=== PATIENT | male | born 1945 | race Caucasian/White ===

== ENCOUNTER 2022-01-12 01:56 | Day surgery (SDC) | payer OTHER | END 2022-01-12 23:14 | disposition home or self-care (01) | LOC: WOUND 01:56 | DX: E11.621 Type 2 diabetes mellitus with foot ulcer (principal); E11.51 Type 2 diabetes mellitus with diabetic peripheral angiopathy without gangrene; I70.6 Atherosclerosis of nonbiological bypass graft(s) of the extremities; L97.516 Non-pressure chronic ulcer of other part of right foot with bone involvement without evidence of necrosis; L97.512 Non-pressure chronic ulcer of other part of right foot with fat layer exposed; L97.528 Non-pressure chronic ulcer of other part of left foot with other specified severity; E11.52 Type 2 diabetes mellitus with diabetic peripheral angiopathy with gangrene; I96 Gangrene, not elsewhere classified; E11.59 Type 2 diabetes mellitus with other circulatory complications; I87.2 Venous insufficiency (chronic) (peripheral); I25.10 Atherosclerotic heart disease of native coronary artery without angina pectoris; I10 Essential (primary) hypertension; Z87.891 Personal history of nicotine dependence; Z89.411 Acquired absence of right great toe | CPT/HCPCS: A9270; G0463 ==

== ENCOUNTER 2022-01-19 02:25 | Day surgery (SDC) | payer OTHER | END 2022-01-19 22:51 | disposition home or self-care (01) | LOC: WOUND 02:25 | DX: E11.621 Type 2 diabetes mellitus with foot ulcer (principal); L97.516 Non-pressure chronic ulcer of other part of right foot with bone involvement without evidence of necrosis; L97.529 Non-pressure chronic ulcer of other part of left foot with unspecified severity; I96 Gangrene, not elsewhere classified; I70.6 Atherosclerosis of nonbiological bypass graft(s) of the extremities; E11.59 Type 2 diabetes mellitus with other circulatory complications; I87.2 Venous insufficiency (chronic) (peripheral); I70.203 Unspecified atherosclerosis of native arteries of extremities, bilateral legs | CPT/HCPCS: A9270; G0463 ==

== ENCOUNTER 2022-01-26 08:00 | Day surgery (SDC) | payer OTHER | END 2022-01-26 23:59 | disposition home or self-care (01) | LOC: WOUND 08:00 | DX: E11.621 Type 2 diabetes mellitus with foot ulcer (principal); L97.512 Non-pressure chronic ulcer of other part of right foot with fat layer exposed; L97.529 Non-pressure chronic ulcer of other part of left foot with unspecified severity; E11.52 Type 2 diabetes mellitus with diabetic peripheral angiopathy with gangrene; I96 Gangrene, not elsewhere classified; E11.51 Type 2 diabetes mellitus with diabetic peripheral angiopathy without gangrene; I70.6 Atherosclerosis of nonbiological bypass graft(s) of the extremities; L97.519 Non-pressure chronic ulcer of other part of right foot with unspecified severity; I87.2 Venous insufficiency (chronic) (peripheral); T87.89 Other complications of amputation stump | CPT/HCPCS: G0463 ==

== ENCOUNTER 2022-04-23 20:42 | Emergency (ER) | payer OTHER ==
[~2022-04-23] VITALS: Ht 180.3 cm; Wt 90.7 kg
[~2022-04-23 20:42] MED LIST: AMOCLA875 PO; Acetaminophen650 M1; Calcium Carbon500 MG PO; DILT180 PO; ELIQUIS5 M2 PO; FERSU300 PO; FURO20 PO; GABA100; GLUC500 PO; NITR.4SL SL; OMEP20ER PO; POTASSIUM99 M3 PO; PRAV20 PO; PRED5 PO; STIOLTO RESPIMAT4 G1; SULTRIDS PO; Vitamin C100 M1 PO
[2022-04-24 01:05] LABS: Calcium, Ionized (POC) 1.22 mmol/L (1.10-1.46); Chloride (POC) 99 mmol/L (98-108); Creatinine (POC) 0.8 mg/dL (0.8-1.3); Glucose (ISTAT POC) 278 mg/dL (70-99); Hemoglobin (POC) 11.6 g/dL (13.5-17.5); Potassium (POC) 4.4 mmol/L (3.5-5.5); Sodium (POC) 134 mmol/L (135-148); Total CO2 (POC) 25 mmol/L (21-32)
== END 2022-04-24 03:35 | disposition home or self-care (01) ==
LOC: ER 20:42
PROVIDERS: Emergency Medicine
DX: M96.830 Postprocedural hemorrhage of a musculoskeletal structure following a musculoskeletal system procedure (principal); E11.9 Type 2 diabetes mellitus without complications; J44.9 Chronic obstructive pulmonary disease, unspecified; I11.0 Hypertensive heart disease with heart failure; I50.30 Unspecified diastolic (congestive) heart failure; Z87.891 Personal history of nicotine dependence; Z79.899 Other long term (current) drug therapy; Z79.52 Long term (current) use of systemic steroids
CPT/HCPCS: 36415; 80047; 82947; 85014; 99283

== ENCOUNTER 2022-05-09 17:46 | Emergency (ER) | payer OTHER ==
[~2022-05-09] VITALS: Ht 180.3 cm; Wt 85.7 kg
[2022-05-09 19:31] LABS: BASOPHILS ABSOLUTE AUTO 0.06 K/mm3 (0.00-0.23); BASOPHILS PERCENT AUTO 0 % (0-2); EOSINOPHILS ABSOLUTE AUTO 0.12 K/mm3 (0.00-0.68); EOSINOPHILS PERCENT AUTO 1 % (0-6); Hematocrit 30.2 % (37.0-53.0); Hemoglobin 9.5 g/dL (13.5-17.5); IMMATURE GRAN ABSOLUTE AUTO 0.15 K/mm3 (0.00-0.10); IMMATURE GRAN PERCENT AUTO 1 % (0-1); LYMPHOCYTES ABSOLUTE AUTO 2.77 K/mm3 (0.84-5.20); LYMPHOCYTES PERCENT AUTO 18 % (21-46); MONOCYTES ABSOLUTE AUTO 1.14 K/mm3 (0.16-1.47); MONOCYTES PERCENT AUTO 7 % (4-13); Mean Corpuscular HGB 27.9 pg (26.0-34.0); Mean Corpuscular HGB Conc 31.5 g/dL (31.5-36.5); Mean Corpuscular Volume 89 fL (80-100); NEUTROPHILS ABSOLUTE AUTO 11.28 K/mm3 (1.96-9.15); NEUTROPHILS PERCENT AUTO 73 % (41-73); Platelet Count 247 K/mm3 (150-400); RDW Coefficient Variation 15.5 % (11.7-14.2); RDW Standard Deviation 50.2 fL (35.1-46.3); Red Blood Cell Count 3.41 M/mm3 (4.30-5.90); White Blood Cell Count 15.52 K/mm3 (4.00-11.30)
[2022-05-09 19:55] LABS: Albumin, Blood 2.7 g/dL (3.4-5.0); Albumin/Globulin Ratio 0.7 (0.8-1.8); Bilirubin, Total 0.4 mg/dL (0.1-1.0); Bun/Creatinine Ratio 37.2 (12.0-20.0); Calcium, Blood 9.7 mg/dL (8.5-10.1); Creatinine, Blood 0.91 mg/dL (0.60-1.20); Globulin, Blood 3.8 g/dL (2.2-4.0); Potassium, Blood 4.6 mmol/L (3.5-5.5); Total Protein, Blood 6.5 g/dL (6.4-8.2)
[2022-05-09] MEDS ORDERED: Bactrim Ds Tab1 EACH PO (20:29)
[2022-05-09] MEDS ORDERED: CEPH500 PO (20:29)
== END 2022-05-09 21:58 | disposition home or self-care (01) ==
LOC: ER 17:46
PROVIDERS: Emergency Medicine
DX: L03.116 Cellulitis of left lower limb (principal); B96.5 Pseudomonas (aeruginosa) (mallei) (pseudomallei) as the cause of diseases classified elsewhere; B96.89 Other specified bacterial agents as the cause of diseases classified elsewhere; E11.51 Type 2 diabetes mellitus with diabetic peripheral angiopathy without gangrene; D72.829 Elevated white blood cell count, unspecified; E78.5 Hyperlipidemia, unspecified; I11.0 Hypertensive heart disease with heart failure; I50.32 Chronic diastolic (congestive) heart failure; J44.9 Chronic obstructive pulmonary disease, unspecified; Z87.891 Personal history of nicotine dependence; Z88.8 Allergy status to other drugs, medicaments and biological substances; Z88.5 Allergy status to narcotic agent; Z91.013 Allergy to seafood; Z79.899 Other long term (current) drug therapy
CPT/HCPCS: 36415; 80053; 85025; J3370; J7060

== ENCOUNTER 2022-06-10 07:40 | Emergency (ER) | payer OTHER ==
[~2022-06-10] VITALS: Ht 180.3 cm; Wt 85.7 kg
[~2022-06-10 07:40] MED LIST changes: +Bactrim Ds Tab1 EACH PO; +CEPH500 PO; +Norco 5-325 Ta1 EACH PO
[2022-06-10] MEDS ORDERED: ALLO100 PO (07:59)
[2022-06-10] MEDS ORDERED: ACET500 PO (07:59)
[2022-06-10] MEDS ORDERED: ALOGLIPTIN25 M1 PO (08:00)
[2022-06-10] MEDS ORDERED: Aspir 8181 MG PO (08:01)
[2022-06-10] MEDS ORDERED: ELIQUIS5 M2 PO (08:01)
[2022-06-10] MEDS ORDERED: TUMS500 MG PO (08:03)
[2022-06-10] MEDS ORDERED: BISA10S PR (08:03)
[2022-06-10] MEDS ORDERED: FURO20 PO (08:05)
[2022-06-10] MEDS ORDERED: FURO40 PO (08:06)
[2022-06-10] MEDS ORDERED: GABA100 PO (08:06)
[2022-06-10] MEDS ORDERED: GLUCAGEN IM (08:07)
[2022-06-10] MEDS ORDERED: NOVOLOG100 UNIT/2 (08:10)
[2022-06-10] MEDS ORDERED: INSULANI (08:10)
[2022-06-10] MEDS ORDERED: METF500 PO (08:11)
[2022-06-10] MEDS ORDERED: LACT PO (08:11)
[2022-06-10] MEDS ORDERED: METO25ER PO (08:12)
[2022-06-10] MEDS ORDERED: OMEP20ER PO (08:13)
[2022-06-10] MEDS ORDERED: SENNA LAXATIVE8.6 MG PO (08:14)
[2022-06-10] MEDS ORDERED: POTA10T PO (08:14)
[2022-06-10] MEDS ORDERED: PRAV20 PO (08:14)
[2022-06-10] MEDS ORDERED: Flomax0.4 MG PO (08:15)
[2022-06-10] MEDS ORDERED: STRIVERDI RESPIM4 G1 PO (08:16)
[2022-06-10] MEDS ORDERED: TRAM50 PO (08:17)
[2022-06-10] MEDS ORDERED: TRAZ50 PO (08:20)
[2022-06-10 08:46] LABS: BASOPHILS ABSOLUTE AUTO 0.06 K/mm3 (0.00-0.23); BASOPHILS PERCENT AUTO 1 % (0-2); EOSINOPHILS PERCENT AUTO 1 % (0-6); Hematocrit 31.1 % (37.0-53.0); Hemoglobin 9.4 g/dL (13.5-17.5); IMMATURE GRAN ABSOLUTE AUTO 0.15 K/mm3 (0.00-0.10); IMMATURE GRAN PERCENT AUTO 1 % (0-1); LYMPHOCYTES ABSOLUTE AUTO 2.76 K/mm3 (0.84-5.20); LYMPHOCYTES PERCENT AUTO 21 % (21-46); MONOCYTES ABSOLUTE AUTO 1.53 K/mm3 (0.16-1.47); MONOCYTES PERCENT AUTO 12 % (4-13); Mean Corpuscular HGB 26.5 pg (26.0-34.0); Mean Corpuscular HGB Conc 30.2 g/dL (31.5-36.5); Mean Corpuscular Volume 88 fL (80-100); Mean Platelet Volume 10.9 fL (9.1-12.4); NEUTROPHILS ABSOLUTE AUTO 8.43 K/mm3 (1.96-9.15); NEUTROPHILS PERCENT AUTO 65 % (41-73); Platelet Count 227 K/mm3 (150-400); RDW Coefficient Variation 17.3 % (11.7-14.2); RDW Standard Deviation 56.2 fL (35.1-46.3); Red Blood Cell Count 3.55 M/mm3 (4.30-5.90); White Blood Cell Count 13.03 K/mm3 (4.00-11.30)
== END 2022-06-10 11:10 | disposition home or self-care (01) ==
LOC: ER 07:40
PROVIDERS: Physician Assistant
DX: R04.0 Epistaxis (principal); E11.9 Type 2 diabetes mellitus without complications; I11.0 Hypertensive heart disease with heart failure; I50.32 Chronic diastolic (congestive) heart failure; J44.9 Chronic obstructive pulmonary disease, unspecified; Z87.891 Personal history of nicotine dependence; Z79.899 Other long term (current) drug therapy; Z79.4 Long term (current) use of insulin; Z79.01 Long term (current) use of anticoagulants; Z91.041 Radiographic dye allergy status; Z88.5 Allergy status to narcotic agent; Z91.013 Allergy to seafood
CPT/HCPCS: 30901; 85025; 86850; 86900; 86901; 99283-25; A9270; J7030

== ENCOUNTER 2022-08-24 03:14 | Emergency (ER) | payer OTHER ==
[~2022-08-24] VITALS: Ht 180.3 cm; Wt 81.7 kg
[~2022-08-24 03:14] MED LIST changes: +ACET500 PO; +ALLO100 PO; +ALOGLIPTIN25 M1 PO; +Aspir 8181 MG PO; +BISA10S PR; +FURO40 PO; +Flomax0.4 MG PO; +GABA100 PO; +GLUCAGEN IM; +INSULANI; +LACT PO; +METF500 PO; +METO25ER PO; +NOVOLOG100 UNIT/2; +POTA10T PO; +SENNA LAXATIVE8.6 MG PO; +STRIVERDI RESPIM4 G1 PO; +TRAM50 PO; +TRAZ50 PO; +TUMS500 MG PO
[2022-08-24 03:49] LABS: BASOPHILS ABSOLUTE AUTO 0.04 K/mm3 (0.00-0.23); BASOPHILS PERCENT AUTO 0 % (0-2); EOSINOPHILS ABSOLUTE AUTO 0.03 K/mm3 (0.00-0.68); EOSINOPHILS PERCENT AUTO 0 % (0-6); Hemoglobin 9.9 g/dL (13.5-17.5); IMMATURE GRAN ABSOLUTE AUTO 0.08 K/mm3 (0.00-0.10); IMMATURE GRAN PERCENT AUTO 1 % (0-1); LYMPHOCYTES PERCENT AUTO 13 % (21-46); MONOCYTES ABSOLUTE AUTO 1.37 K/mm3 (0.16-1.47); MONOCYTES PERCENT AUTO 15 % (4-13); Mean Corpuscular HGB Conc 30.9 g/dL (31.5-36.5); Mean Corpuscular Volume 87 fL (80-100); Mean Platelet Volume 11.3 fL (9.1-12.4); NEUTROPHILS ABSOLUTE AUTO 6.27 K/mm3 (1.96-9.15); NEUTROPHILS PERCENT AUTO 70 % (41-73); Platelet Count 180 K/mm3 (150-400); RDW Coefficient Variation 17.4 % (11.7-14.2); RDW Standard Deviation 56.3 fL (35.1-46.3); Red Blood Cell Count 3.66 M/mm3 (4.30-5.90); White Blood Cell Count 8.99 K/mm3 (4.00-11.30)
[2022-08-24 04:02] LABS: Albumin, Blood 2.9 g/dL (3.4-5.0); Albumin/Globulin Ratio 0.9 (0.8-1.8); Bilirubin, Total 0.3 mg/dL (0.1-1.0); Bun/Creatinine Ratio 39.1 (12.0-20.0); Calcium, Blood 9.2 mg/dL (8.5-10.1); Creatinine, Blood 0.97 mg/dL (0.60-1.20); Globulin, Blood 3.4 g/dL (2.2-4.0); Potassium, Blood 4.6 mmol/L (3.5-5.5); Total Protein, Blood 6.3 g/dL (6.4-8.2)
[2022-08-24 04:57] LABS: Source, Urine Clean Catch
[2022-08-24 05:05] LABS: Bilirubin, Urine Neg (Neg); Blood, Urine Neg (Neg); Glucose Qualitative, Urine Neg (Neg); Ketones, Urine Neg (Neg); Leukocyte Esterase, Urine Neg (Neg); Nitrite, Urine Neg (Neg); Protein, Urine 2+ (Neg); Specific Gravity, Urine 1.015 (1.003-1.022); Urobilinogen, Urine NORM (Normal)
[2022-08-24 05:35] LABS: Color, Urine Yellow (P-Yellow)
[2022-08-24 05:36] LABS: Appearance, Urine Clear (Clear); Bacteria Not Seen /hpf; Influenza A, PCR NEGATIVE (NEGATIVE); Influenza B, PCR NEGATIVE (NEGATIVE); Red Blood Cells, Urine 0-2 /hpf (0-2); Resp Syncytial Virus, PCR NEGATIVE (NEGATIVE); Squamous Epithelial Cells Not Seen /hpf (Few); White Blood Cells, Urine 0-2 /hpf (0-5)
[2022-08-24 05:43] LABS: SARS-Cov-2 (COVID-19) PCR, MMC POSITIVE (NEGATIVE)
== END 2022-08-24 11:14 | disposition home or self-care (01) ==
LOC: ER 03:14
PROVIDERS: Emergency Medicine
DX: U07.1 COVID-19 (principal); E11.51 Type 2 diabetes mellitus with diabetic peripheral angiopathy without gangrene; I11.0 Hypertensive heart disease with heart failure; I50.32 Chronic diastolic (congestive) heart failure; J44.9 Chronic obstructive pulmonary disease, unspecified; Z88.5 Allergy status to narcotic agent; Z88.8 Allergy status to other drugs, medicaments and biological substances; Z91.013 Allergy to seafood; Z79.899 Other long term (current) drug therapy; Z79.01 Long term (current) use of anticoagulants; Z79.82 Long term (current) use of aspirin; Z79.4 Long term (current) use of insulin
CPT/HCPCS: 0241U; 36415; 71045; 73620; 80053; 81001; 83605; 83880; 84145; 85025; 93005; 93010; A9270; J7030

== ENCOUNTER 2024-08-19 09:19 | Inpatient (IN) | payer OTHER ==
[~2024-08-19] VITALS: Ht 180.3 cm; Wt 80.0 kg
[~2024-08-19 09:19] MED LIST changes: +ALBU2.5V5 INH; +CLOP75 PO; +DEXT40GEL PO; +DICLOFENAC SOD100 GM TOP; +DIGOX125 MC1 PO; +LIDO700A20 TOP; +MELA3 PO; -METO25ER PO; +METO50ER PO; +PROBIOTIC1 EA13 PO; +Prednisone10 MG PO; +VANCOMYCIN SOLUTION IV; +VITAMIN D5000 UNIT PO
[2024-08-19] MEDS ORDERED: Vancomycin HCL 2,000 MG in NS 520 ML IV ONE (10:00)
[2024-08-19 10:11] LABS: BASOPHILS ABSOLUTE AUTO 0.06 K/mm3 (0.00-0.23); BASOPHILS PERCENT AUTO 0 % (0-2); EOSINOPHILS ABSOLUTE AUTO 0.27 K/mm3 (0.00-0.68); EOSINOPHILS PERCENT AUTO 2 % (0-6); Hemoglobin 9.5 g/dL (13.5-17.5); IMMATURE GRAN PERCENT AUTO 1 % (0-1); LYMPHOCYTES ABSOLUTE AUTO 2.34 K/mm3 (0.84-5.20); LYMPHOCYTES PERCENT AUTO 16 % (21-46); MONOCYTES ABSOLUTE AUTO 1.41 K/mm3 (0.16-1.47); MONOCYTES PERCENT AUTO 9 % (4-13); Mean Corpuscular HGB 27.6 pg (26.0-34.0); Mean Corpuscular HGB Conc 30.6 g/dL (31.5-36.5); Mean Corpuscular Volume 90 fL (80-100); Mean Platelet Volume 10.9 fL (9.1-12.4); NEUTROPHILS ABSOLUTE AUTO 10.75 K/mm3 (1.96-9.15); NEUTROPHILS PERCENT AUTO 72 % (41-73); Platelet Count 203 K/mm3 (150-400); RDW Coefficient Variation 16.1 % (11.7-14.2); RDW Standard Deviation 52.9 fL (35.1-46.3); Red Blood Cell Count 3.44 M/mm3 (4.30-5.90); White Blood Cell Count 14.93 K/mm3 (4.00-11.30)
[2024-08-19 10:23] LABS: Albumin, Blood 2.6 g/dL (3.4-5.0); Albumin/Globulin Ratio 0.6 (0.8-1.8); Bilirubin, Total 0.5 mg/dL (0.1-1.0); Bun/Creatinine Ratio 17.1 (12.0-20.0); C-REACTIVE PROTEIN, EXT RANGE 8.55 mg/dL (0.000-0.300); Calcium, Blood 8.6 mg/dL (8.5-10.1); Creatinine, Blood 0.94 mg/dL (0.60-1.20); Globulin, Blood 4.1 g/dL (2.2-4.0); Potassium, Blood 4.6 mmol/L (3.5-5.5); Total Protein, Blood 6.7 g/dL (6.4-8.2)
[2024-08-19] MEDS ORDERED: Lactated Ringer's 1,000 ML IV SCH (10:35)
[2024-08-19] MEDS ORDERED: ATOR40TA PO (10:42)
[2024-08-19] MEDS ORDERED: AMOX-CLAV 875-1 EAC5 PO (10:42)
[2024-08-19] MEDS ORDERED: BETASEPT118 M1 PO (10:44)
[2024-08-19] MEDS ORDERED: FAMO20 PO (10:44)
[2024-08-19] MEDS ORDERED: Piperacillin/Tazobactam Sod 3.375 GM in NS 100 ML IV ONE (10:45)
[2024-08-19] MEDS ORDERED: HYDCHL25 PO (10:46)
[2024-08-19] MEDS ORDERED: Lactated Ringer's 1,000 ML IV ONE (12:35)
[2024-08-19] MEDS ORDERED: NS 1,000 ML IV SCH (12:45)
[2024-08-19] MEDS ORDERED: FLU VACC TS2024-25(6MOS UP)/PF 45 MCG/0.5 ML SYRINGE IM SCH (12:50)
[2024-08-19 13:43] LABS: Source, Urine Clean Catch
[2024-08-19 13:50] LABS: Appearance, Urine Clear (Clear); Bilirubin, Urine Neg (Neg); Blood, Urine Neg (Neg); Color, Urine Yellow (P-Yellow); Glucose Qualitative, Urine Neg (Neg); Ketones, Urine Neg (Neg); Leukocyte Esterase, Urine Neg (Neg); Nitrite, Urine Neg (Neg); Protein, Urine 1+ (Neg); Urobilinogen, Urine 1+ (Normal)
[2024-08-19] MEDS ORDERED: Azithromycin 500 MG in NS 250 ML IV SCH (14:00)
[2024-08-19] MEDS ORDERED: Gabapentin 300 MG Cap PO SCH (14:00)
[2024-08-19] MEDS ORDERED: Insulin Human Lispro 100 Units/ML 3ML Syringe SC SCH (16:30)
[2024-08-19] MEDS ORDERED: Piperacillin/Tazobactam Sod 3.375 GM in NS 100 ML IV SCH (18:00)
[2024-08-19 18:32] VITALS: BP 96/61
[2024-08-19] MEDS ORDERED: AMOCLA875 PO (18:54)
[2024-08-19] MEDS ORDERED: COMBIVENT RESPIM4 G1 INH (18:58)
[2024-08-19] MEDS ORDERED: MUPIROCIN1 G1 TOP (19:01)
[2024-08-19] MEDS ORDERED: SULFAMETHOXAZO1 EAC1 PO (19:03)
[2024-08-19] MEDS ORDERED: MIRALAX17 GM PO (19:16)
[2024-08-19] MEDS ORDERED: TRAM50 PO (19:18)
--- NOTE | 2024-08-19 19:33 | NUR ---
ADMIT Received report from RN, pt to room via kristine, 4 person assist to transfer. Pt alert, oriented x4; clam and cooperative with care. Pt resting in bed. Pt oriented to room and call light. Redness noted to coccyx, blanchable, mepilex in place. Right elbow skin tear, bleeding, placed mepitel, exudry and light cobran wrapping. Left heel, black ulcer, left open to air, requested wound vac, to place wound vac once we receive it, with black foam at 120 continuous, telephone order per Dr Ernst. Wounds to third and fourth toes, open to air. Pictures in chart of all wounds. Bp soft, afib 90-110's. Spo2 >90% on 2l o2 via nc. Other Vss. Report given to oncoming rn.
[2024-08-19 20:34] VITALS: BP 110/61
[2024-08-19] MEDS ORDERED: Famotidine 20 MG Tab PO SCH (21:00)
[2024-08-19] MEDS ORDERED: Lactobacil 2-S.Thermo-Bifido 1 1 Cap PO SCH (21:00)
[2024-08-19] MEDS ORDERED: Metoprolol Succinate 25 MG TABCR PO SCH (21:00)
[2024-08-19] MEDS ORDERED: Atorvastatin 40 MG Tab PO SCH (21:00)
[2024-08-20] MEDS ORDERED: Vancomycin HCL 1,000 MG in NS 250 ML IV SCH
[2024-08-20 00:35] VITALS: BP 98/48
[2024-08-20 03:51] LABS: BASOPHILS ABSOLUTE AUTO 0.05 K/mm3 (0.00-0.23); BASOPHILS PERCENT AUTO 0 % (0-2); EOSINOPHILS PERCENT AUTO 3 % (0-6); Hematocrit 29.5 % (37.0-53.0); Hemoglobin 8.9 g/dL (13.5-17.5); IMMATURE GRAN ABSOLUTE AUTO 0.06 K/mm3 (0.00-0.10); IMMATURE GRAN PERCENT AUTO 1 % (0-1); LYMPHOCYTES PERCENT AUTO 16 % (21-46); MONOCYTES PERCENT AUTO 10 % (4-13); Mean Corpuscular HGB 28.1 pg (26.0-34.0); Mean Corpuscular HGB Conc 30.2 g/dL (31.5-36.5); Mean Corpuscular Volume 93 fL (80-100); Mean Platelet Volume 10.8 fL (9.1-12.4); NEUTROPHILS ABSOLUTE AUTO 8.12 K/mm3 (1.96-9.15); NEUTROPHILS PERCENT AUTO 71 % (41-73); Platelet Count 165 K/mm3 (150-400); RDW Standard Deviation 54.5 fL (35.1-46.3); Red Blood Cell Count 3.17 M/mm3 (4.30-5.90); White Blood Cell Count 11.43 K/mm3 (4.00-11.30)
[2024-08-20 04:18] LABS: Bun/Creatinine Ratio 19.5 (12.0-20.0); Calcium, Blood 8.5 mg/dL (8.5-10.1); Creatinine, Blood 0.77 mg/dL (0.60-1.20); Potassium, Blood 4.6 mmol/L (3.5-5.5)
[2024-08-20 04:20] VITALS: BP 112/59
[2024-08-20] MEDS ORDERED: MIRALAX17 GM PO (05:25)
--- NOTE | 2024-08-20 06:24 | NUR ---
2130: WOUND VAC PLACED TO LEFT HEEL WOUND, GOOD SEAL OBTAINED, NO DRAINAGE NOTED.
--- NOTE | 2024-08-20 06:25 | NUR ---
PT STABLE THROUGHOUT THE SHIFT. VITAL SIGNS WNL. PT TOLERATING IV ABX W/O PROBLEM. PT HAS SMALL FREQUENT VOIDS AND HAS GOOD OUTPUT. NO OUTPUT FROM WOUND VAC AT THIS TIME. PT REMAINS ON 2L O2 BY NC. PT AOX4, COOPERATIVE AND PLEASANT. PT IS [place] W/O HEARING AIDS. 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 STUMP IS INTACT. LEFT 3RD TOE HAS BLACKENED AREAS. LEFT HEEL HAS OPEN AREA 2.5CM X 6CM WITH WOUND VAC NOW APPLIED OVER THE TOP WITH GOOD SEAL.
[2024-08-20 08:38] VITALS: BP 103/57
[2024-08-20] MEDS ORDERED: PredniSONE 10 MG Tab PO SCH (09:00)
[2024-08-20] MEDS ORDERED: Tamsulosin HCl 0.4 MG Cap PO SCH (09:00)
[2024-08-20 11:45] VITALS: BP 117/58
--- NOTE | 2024-08-20 12:15 | NUR ---
PT TO IMAGING FOR MRI
[2024-08-20] MEDS ORDERED: Acetaminophen 325 MG TABLET PO PRN (13:25)
[2024-08-20 15:58] VITALS: BP 114/70
--- NOTE | 2024-08-20 18:22 | NUR ---
SHIFT SUMMARY: PT HAS BEEN A&Ox4, COOPERATIVE W/CARE, ABLE TO MAKE NEEDS KNOWN. PT HAS DENIED SOB, O2 SATS >92%, CURRENTLY TOLERATING RA. PT DENIES CP, AFIB ON MONITOR, RATE 90s. NO COVERAGE INDICATED FOR BLOOD SUGARS THIS SHIFT. PT ASSISTED x1 TO BSC TO ATTEMPT BM, NO BM HAD. OTHERWISE, PT USING URINAL INDEPENDENTLY IN BED. PT TO MRI THIS SHIFT. WOUND VAC DRESSING CHANGED BY NOC SHIFT RN, NO OUTPUT IN SUCTION CANISTER. SKIN TEAR DRESSING TO RUE CHANGED THIS SHIFT. AT THIS TIME, PT IS RESTING QUIETLY IN BED WITH CALL LIGHT IN REACH.
[2024-08-20 20:36] VITALS: BP 120/77
[2024-08-20 23:29] LABS: Vancomycin, Trough 21.6 ug/mL (5.0-10.0)
[2024-08-21] VITALS (7 sets, daily range): BP systolic 101–116; BP diastolic 54–66
--- NOTE | 2024-08-21 01:20 | NUR ---
PT C/O PAIN AND DECLINES APAP. PT TAKES TRAMADOL AT HOME. CALL PLACED TO DR. FIGUEROA REGARDING PAIN MANAGEMENT. DR. DUPONT WILL REVIEW.
[2024-08-21] MEDS ORDERED: NS 250 ML IV PRN (01:25)
[2024-08-21] MEDS ORDERED: TraMADol HCl 50 MG Tab PO PRN (01:25)
[2024-08-21] MEDS ORDERED: Vancomycin HCL 1,250 MG in NS 250 ML IV SCH (04:00)
[2024-08-21 04:27] LABS: Hematocrit 26.8 % (37.0-53.0); Hemoglobin 8.2 g/dL (13.5-17.5); Mean Corpuscular HGB 27.5 pg (26.0-34.0); Mean Corpuscular HGB Conc 30.6 g/dL (31.5-36.5); Mean Corpuscular Volume 90 fL (80-100); Mean Platelet Volume 11.5 fL (9.1-12.4); Platelet Count 182 K/mm3 (150-400); RDW Coefficient Variation 15.9 % (11.7-14.2); RDW Standard Deviation 52.1 fL (35.1-46.3); Red Blood Cell Count 2.98 M/mm3 (4.30-5.90); White Blood Cell Count 9.99 K/mm3 (4.00-11.30)
[2024-08-21 04:53] LABS: Bun/Creatinine Ratio 18.7 (12.0-20.0); Calcium, Blood 8.5 mg/dL (8.5-10.1); Creatinine, Blood 0.75 mg/dL (0.60-1.20); Potassium, Blood 4.2 mmol/L (3.5-5.5)
--- NOTE | 2024-08-21 06:35 | NUR ---
PT STABLE THROUGHOUT THE SHIFT. PT TOLERATING IV ABX WELL. PT DID C/O PAIN TO LEFT FOOT AND MEDICATION WAS ORDERED AND GIVEN FOR THAT WITH GOOD EFFECT (SEE PREVIOUS NOTE.) PT IS ANXIOUS FOR DISCHARGE SO HE CAN HAVE 3RD LEFT TOE OPERATED ON. PT DID NOT REQUIRE O2 WHILE AWAKE BUT DID DESAT INTO THE MID 80s WHEN SLEEPING AND WAS THEN PLACED ON 2L O2 OVER NIGHT AND MAINTAINED SATS WELL AFTER THAT. PT REMAINED AOX4, CALM, COOPERATIVE. PT ABLE TO USE CALL LIGHT APPROPRIATELY AND ABLE TO EXPRESS NEEDS. PT HAD GOOD URINARY OUTPUT THROUGHOUT THE SHIFT WITH SMALL FREQUENT VOIDS.
[2024-08-21] MEDS ORDERED: Polyethylene Glycol 3350 17 gm PO SCH (12:00)
[2024-08-21] MEDS ORDERED: Sennosides 8.6 MG Tab PO SCH ×2 (12:55→21:00)
--- NOTE | 2024-08-21 15:55 | NUR ---
IV dressing needed changed. Removal of Statlock over the IV hub resulted in a superficial skin tear of the pt's forearm, anterior to the IV site. It was 1 cm x 1 cm. Area covered with xeroform gauze, non adherent bandage and secured with tegederm.
--- NOTE | 2024-08-21 18:19 | NUR ---
Pt ate dinner and then was assisted to [facility] to have BM. Max 2 person assist with gait belt.
--- NOTE | 2024-08-21 18:40 | NUR ---
Unable to have BM. Assisted back to bed.
[2024-08-21 19:16] LABS: SARS-Cov-2 (COVID-19) PCR, MMC NEGATIVE (NEGATIVE)
--- NOTE | 2024-08-21 19:21 | NUR ---
Bedside report to PRASHANT Desai.
[2024-08-21] MEDS ORDERED: Docusate Sodium 100 MG Cap PO SCH (21:00)
[2024-08-21] MEDS ORDERED: Apixaban 5 MG Tab PO SCH (21:00)
[2024-08-22 03:19] LABS: BASOPHILS ABSOLUTE AUTO 0.02 K/mm3 (0.00-0.23); BASOPHILS PERCENT AUTO 0 % (0-2); EOSINOPHILS ABSOLUTE AUTO 0.16 K/mm3 (0.00-0.68); EOSINOPHILS PERCENT AUTO 2 % (0-6); Hematocrit 25.9 % (37.0-53.0); Hemoglobin 7.9 g/dL (13.5-17.5); IMMATURE GRAN ABSOLUTE AUTO 0.05 K/mm3 (0.00-0.10); IMMATURE GRAN PERCENT AUTO 1 % (0-1); LYMPHOCYTES ABSOLUTE AUTO 1.51 K/mm3 (0.84-5.20); LYMPHOCYTES PERCENT AUTO 15 % (21-46); MONOCYTES ABSOLUTE AUTO 0.89 K/mm3 (0.16-1.47); MONOCYTES PERCENT AUTO 9 % (4-13); Mean Corpuscular HGB 27.4 pg (26.0-34.0); Mean Corpuscular HGB Conc 30.5 g/dL (31.5-36.5); Mean Corpuscular Volume 90 fL (80-100); Mean Platelet Volume 11.1 fL (9.1-12.4); NEUTROPHILS ABSOLUTE AUTO 7.48 K/mm3 (1.96-9.15); NEUTROPHILS PERCENT AUTO 74 % (41-73); Platelet Count 180 K/mm3 (150-400); RDW Coefficient Variation 15.8 % (11.7-14.2); RDW Standard Deviation 51.9 fL (35.1-46.3); Red Blood Cell Count 2.88 M/mm3 (4.30-5.90); White Blood Cell Count 10.11 K/mm3 (4.00-11.30)
[2024-08-22 03:42] LABS: Anion Gap 10 mmol/L (3-11); Blood Urea Nitrogen 17 mg/dL (8-24); Bun/Creatinine Ratio 22.1 (12.0-20.0); CO2, Blood 27 mmol/L (21-32); Calcium, Blood 8.2 mg/dL (8.5-10.1); Chloride, Blood 108 mmol/L (98-108); Creatinine, Blood 0.77 mg/dL (0.60-1.20); Glomerular Filtration Rate 91 (60-); Glucose, Blood 123 mg/dL (70-99); Potassium, Blood 3.9 mmol/L (3.5-5.5); Sodium, Blood 141 mmol/L (136-145); Vancomycin, Trough 18.2 ug/mL (5.0-10.0)
[2024-08-22 04:33] VITALS: BP 114/62
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
[2024-08-22 07:03] VITALS: BP 116/75
[2024-08-22] MEDS ORDERED: PIPERACIL-TA3.375 G1 IV (11:42)
[2024-08-22] MEDS ORDERED: DOCU100 PO (11:42)
[2024-08-22] MEDS ORDERED: Acetaminophen650 M1 PO (11:42)
[2024-08-22] MEDS ORDERED: VANCOMYCIN1.25 GM/24 IV (11:43)
[2024-08-22 11:53] VITALS: BP 116/62
--- NOTE | 2024-08-22 13:45 | NUR ---
DISCHARGE SUMMARY REPORT GIVEN TO [facility] RN, PT TRANSPORTED TO [facility] VIA GURNEY AND MEDICAL TRANSPORT. ALL BELONGINGS RETURNED AND LEFT WITH PT. DISCHARGE PACKET SENT WITH PT.
--- NOTE | 2024-08-22 14:40 | NUR ---
The pt was discharged with [facility] wheelchair transport back to the [place]. Powerglide in place in the left upper arm. Peripheral IV was dc'd from the left AC. Skin tear on the left forearm was redressed with xeroform vaseline gauze, non adherent dressing and secured with kerlix and coban.
== END 2024-08-22 13:24 | DRG 871 ==
LOC: ER 09:19 → ERHOLD 12:42 → PCU 12:42
PROVIDERS: Internal Medicine; Student in an Organized Health Care Education/Training Program; ADMIT Internal Medicine
DX: A41.9 Sepsis, unspecified organism (principal); J18.9 Pneumonia, unspecified organism; E11.52 Type 2 diabetes mellitus with diabetic peripheral angiopathy with gangrene; I96 Gangrene, not elsewhere classified; L97.429 Non-pressure chronic ulcer of left heel and midfoot with unspecified severity; I50.42 Chronic combined systolic (congestive) and diastolic (congestive) heart failure; E87.20 Acidosis, unspecified; J44.0 Chronic obstructive pulmonary disease with (acute) lower respiratory infection; R65.20 Severe sepsis without septic shock; E78.00 Pure hypercholesterolemia, unspecified; M35.3 Polymyalgia rheumatica; I48.0 Paroxysmal atrial fibrillation; K59.00 Constipation, unspecified; M10.9 Gout, unspecified; E11.621 Type 2 diabetes mellitus with foot ulcer; D63.8 Anemia in other chronic diseases classified elsewhere; E11.42 Type 2 diabetes mellitus with diabetic polyneuropathy; K21.9 Gastro-esophageal reflux disease without esophagitis; Z89.412 Acquired absence of left great toe; Z89.422 Acquired absence of other left toe(s); Z89.511 Acquired absence of right leg below knee; Z87.891 Personal history of nicotine dependence; Z88.5 Allergy status to narcotic agent; Z88.8 Allergy status to other drugs, medicaments and biological substances; Z91.013 Allergy to seafood; Z79.899 Other long term (current) drug therapy; Z79.84 Long term (current) use of oral hypoglycemic drugs; Z79.01 Long term (current) use of anticoagulants; Z86.14 Personal history of Methicillin resistant Staphylococcus aureus infection
CPT/HCPCS: 36415; 36416; 71045; 71046; 71250; 73620; 73720; 73723; 80048; 80053; 80202; 82947; 83605; 84145; 85025; 85027; 85651; 86140; 87040; 87086; 93005; 93010; 96365; 96366; 96368; 97110; 97161; 97165; 97530; 99285-25; A9270; A9579; J0456; J2543; J3370; J7030; J7040; J7050; J7120; J7512; U0002

== ENCOUNTER 2024-09-11 07:42 | Inpatient (IN) | payer OTHER ==
[~2024-09-11] VITALS: Ht 180.3 cm; Wt 76.0 kg
[~2024-09-11 07:42] MED LIST changes: +AMOX-CLAV 875-1 EAC5 PO; +ATOR40TA PO; +Acetaminophen650 M1 PO; +BETASEPT118 M1 PO; +COMBIVENT RESPIM4 G1 INH; +DOCU100 PO; +FAMO20 PO; +HYDCHL25 PO; +MIRALAX17 GM PO; +MUPIROCIN1 G1 TOP; +PIPERACIL-TA3.375 G1 IV; +SULFAMETHOXAZO1 EAC1 PO; +VANCOMYCIN1.25 GM/24 IV
[2024-09-11] MEDS ORDERED: NS 1,000 ML IV ONE (08:03)
[2024-09-11] MEDS ORDERED: NS 1,000 ML IV SCH ×4 (08:10→12:50)
[2024-09-11 08:11] LABS: BASOPHILS ABSOLUTE AUTO 0.05 K/mm3 (0.00-0.23); BASOPHILS PERCENT AUTO 0 % (0-2); EOSINOPHILS ABSOLUTE AUTO 0.12 K/mm3 (0.00-0.68); EOSINOPHILS PERCENT AUTO 1 % (0-6); Hematocrit 27.1 % (37.0-53.0); Hemoglobin 8.3 g/dL (13.5-17.5); IMMATURE GRAN ABSOLUTE AUTO 0.11 K/mm3 (0.00-0.10); IMMATURE GRAN PERCENT AUTO 1 % (0-1); LYMPHOCYTES ABSOLUTE AUTO 1.31 K/mm3 (0.84-5.20); LYMPHOCYTES PERCENT AUTO 8 % (21-46); MONOCYTES ABSOLUTE AUTO 1.18 K/mm3 (0.16-1.47); MONOCYTES PERCENT AUTO 7 % (4-13); Mean Corpuscular HGB 27.5 pg (26.0-34.0); Mean Corpuscular HGB Conc 30.6 g/dL (31.5-36.5); Mean Corpuscular Volume 90 fL (80-100); Mean Platelet Volume 10.2 fL (9.1-12.4); NEUTROPHILS ABSOLUTE AUTO 13.85 K/mm3 (1.96-9.15); NEUTROPHILS PERCENT AUTO 83 % (41-73); NRBC ABSOLUTE 0.02 K/mm3 (0.00-0.02); NRBC Auto 0.1 /100 WBC (0.0-0.2); Platelet Count 360 K/mm3 (150-400); RDW Coefficient Variation 17.3 % (11.7-14.2); RDW Standard Deviation 56.9 fL (35.1-46.3); Red Blood Cell Count 3.02 M/mm3 (4.30-5.90); White Blood Cell Count 16.62 K/mm3 (4.00-11.30)
[2024-09-11] MEDS ORDERED: Vancomycin HCL 1,000 MG in NS 250 ML IV ONE (08:20)
[2024-09-11] MEDS ORDERED: Cefepime HCl 2,000 MG in NS 50 ML IV ONE (08:20)
[2024-09-11] MEDS ORDERED: Acetaminophen 500 MG Tab PO ONE (08:20)
[2024-09-11 08:33] LABS: Albumin, Blood 2.6 g/dL (3.4-5.0); Albumin/Globulin Ratio 0.7 (0.8-1.8); Bilirubin, Total 0.6 mg/dL (0.1-1.0); Bun/Creatinine Ratio 30.9 (12.0-20.0); Calcium, Blood 8.8 mg/dL (8.5-10.1); Creatinine, Blood 0.71 mg/dL (0.60-1.20); Globulin, Blood 3.6 g/dL (2.2-4.0); Total Protein, Blood 6.2 g/dL (6.4-8.2)
[2024-09-11 08:48] LABS: International Normalized Ratio 1.15; Prothrombin Time Results 12.2 Sec (9.7-11.5)
[2024-09-11 09:03] LABS: Albumin, Blood 2.6 g/dL (3.4-5.0); Albumin/Globulin Ratio 0.7 (0.8-1.8); Bilirubin, Direct 0.3 mg/dL (0.0-0.3); Bilirubin, Indirect 0.3 mg/dL (0.1-0.7); Bilirubin, Total 0.6 mg/dL (0.1-1.0); Globulin, Blood 3.7 g/dL (2.2-4.0); Magnesium, Blood 1.6 mg/dL (1.6-2.4); Total Protein, Blood 6.3 g/dL (6.4-8.2)
[2024-09-11] MEDS ORDERED: NALOXONE H0.4 MG/1 M (09:24)
[2024-09-11] MEDS ORDERED: Aspir 8181 MG PO (09:25)
[2024-09-11] MEDS ORDERED: ONDA4 PO (09:25)
[2024-09-11] MEDS ORDERED: CLOP75 PO (09:26)
[2024-09-11] MEDS ORDERED: XARELTO20 MG PO (09:26)
[2024-09-11] MEDS ORDERED: ALBU2.5V5 INH (09:28)
[2024-09-11] MEDS ORDERED: PRED5 PO (09:28)
[2024-09-11 09:45] LABS: Source, Urine Clean Catch
[2024-09-11 10:09] LABS: Bilirubin, Urine Neg (Neg); Blood, Urine Neg (Neg); Glucose Qualitative, Urine Neg (Neg); Ketones, Urine Neg (Neg); Leukocyte Esterase, Urine Neg (Neg); Nitrite, Urine Neg (Neg); Protein, Urine 2+ (Neg); Urobilinogen, Urine 2+ (Normal)
[2024-09-11] MEDS ORDERED: NITR.4SL SL (10:18)
[2024-09-11] MEDS ORDERED: Masophen500 MG PO (10:18)
[2024-09-11] MEDS ORDERED: ASCORBIC ACID500 MG PO (10:19)
[2024-09-11] MEDS ORDERED: GLUCOPHAGE1000 M1 PO (10:19)
[2024-09-11] MEDS ORDERED: Cymbalta20 MG PO (10:19)
[2024-09-11] MEDS ORDERED: FERSU300 PO (10:19)
[2024-09-11] MEDS ORDERED: BISA10S PR (10:21)
[2024-09-11 10:22] LABS: Influenza A, PCR NEGATIVE (NEGATIVE); Influenza B, PCR NEGATIVE (NEGATIVE); Resp Syncytial Virus, PCR NEGATIVE (NEGATIVE); SARS-Cov-2 (COVID-19) PCR, MMC NEGATIVE (NEGATIVE)
[2024-09-11] MEDS ORDERED: BISA5EC PO (10:22)
[2024-09-11 10:32] LABS: Appearance, Urine Clear (Clear); Bacteria Not Seen /hpf; Color, Urine Yellow (P-Yellow); Red Blood Cells, Urine Not Seen /hpf (0-2); Squamous Epithelial Cells Rare /hpf (Few); White Blood Cells, Urine Not Seen /hpf (0-5)
[2024-09-11] MEDS ORDERED: Ondansetron HCl 2 MG / ML 2ML Vial IV PRN (11:00)
[2024-09-11] MEDS ORDERED: FLU VACC TS2024-25(6MOS UP)/PF 45 MCG/0.5 ML SYRINGE IM SCH (11:05)
[2024-09-11] MEDS ORDERED: Insulin Regular 100 UNIT/ML 10ML Vial SC SCH (11:30)
[2024-09-11] MEDS ORDERED: Azithromycin 500 MG in NS 250 ML IV SCH (12:00)
[2024-09-11 12:24] VITALS: BP 80/53
[2024-09-11] MEDS ORDERED: Hydrocortisone Sod Succinate 100 MG Vial IV SCH ×2 (12:44→16:00)
[2024-09-11] MEDS ORDERED: ELIQUIS5 M2 PO (12:56)
[2024-09-11 13:19] VITALS: BP 96/59
[2024-09-11] MEDS ORDERED: Heparin Sodium,Porcine/0.5 NS 500 ML IV SCH (13:20)
[2024-09-11] MEDS ORDERED: HYDCHL25 PO (13:43)
[2024-09-11] MEDS ORDERED: METO5A PO (13:46)
[2024-09-11] MEDS ORDERED: OMEP20ER PO (14:10)
[2024-09-11] MEDS ORDERED: K-Dur10 MEQ PO (14:11)
[2024-09-11] MEDS ORDERED: FURO20 PO (14:11)
[2024-09-11 15:00] VITALS: BP 105/64
--- NOTE | 2024-09-11 18:23 | NUR ---
SHIFT SUMMARY; ASSUMED CARE FROM ER FOR ADMIT. LETHARGIC ON ARRIVAL. SOFT BP, AFIB 100'S. FLUIDS PER PER, BP INCREASED T/O AFTERNOON, MENTATION IMPROVED. A/A/OX4 AT END OF SHIFT. TOLERATED CLEAR LIQUIDS, PURWICK IN PLACE, NS INFUSING AT 200ML/HR, HEPARIN AT 15UNITS/KG. RIGHT BKA, LEFT FOOT WOUND VAC. LEFT FOOT DRESSING IN PLACE, LEG BRACE ON. PER PT AND SPOUSE VIA TELEPHONE BRACE NEED TO BE WORN AT ALL TIMES TO KEEP HEEL PRESSURE OFF OF BED. SPOUSE STATES ALSO HAS A BACK BRACE FOR RECENT FRACTURES AND IS NOT TO BE TAKEN OUT OF BED WITHOUT BRACE. BRACE NOT AT HOSPTIAL WITH PT, PT STATES IS AT THE [facility] [place]. MEPILEX PLACED ON COCCYX FOR PREVENTATIVE, AREA RED AND NON BLANCHING. PLEASANT AND COOPERATIVE WITH CARE, ABLE TO MAKE NEEDS KNOWN, WILL CONTINUE TO MONITOR AND TREAT UNTIL CHANGE OF SHIFT.
[2024-09-11] MEDS ORDERED: Lactobacil 2-S.Thermo-Bifido 1 1 Cap PO SCH (21:00)
[2024-09-11 21:05] VITALS: BP 116/63
[2024-09-11 21:32] LABS: Adenovirus Not Detected (NOT DETECT); Bordetella pertussis Not Detected (NOT DETECT); Chlamydophila pneumoniae Not Detected (NOT DETECT); Coronavirus 229E Not Detected (NOT DETECT); Coronavirus HKU1 Not Detected (NOT DETECT); Coronavirus NL63 Not Detected (NOT DETECT); Coronavirus OC43 Not Detected (NOT DETECT); Human Metapneumovirus Not Detected (NOT DETECT); Human Rhinovirus/Enterovirus Not Detected (NOT DETECT); Influenza A/2009-H1 Not Detected (NOT DETECT); Influenza A/H1 Not Detected (NOT DETECT); Influenza A/H3 Not Detected (NOT DETECT); Influenza B Not Detected (NOT DETECT); Mycoplasma pneumoniae Not Detected (NOT DETECT); Parainfluenza Virus 1 Not Detected (NOT DETECT); Parainfluenza Virus 2 Not Detected (NOT DETECT); Parainfluenza Virus 3 Not Detected (NOT DETECT); Parainfluenza Virus 4 Not Detected (NOT DETECT); Respiratory Syncytial Virus Not Detected (NOT DETECT); SARS-Cov-2 (COVID-19), BioFire Not Detected (NOT DETECT)
[2024-09-11] MEDS ORDERED: NS 250 ML IV PRN (21:50)
[2024-09-11] MEDS ORDERED: Vancomycin HCL 1,000 MG in NS 250 ML IV SCH (22:00)
[2024-09-11 23:29] VITALS: BP 117/75
[2024-09-12 04:00] VITALS: BP 146/75
[2024-09-12 04:39] LABS: BASOPHILS ABSOLUTE AUTO 0.02 K/mm3 (0.00-0.23); BASOPHILS PERCENT AUTO 0 % (0-2); EOSINOPHILS PERCENT AUTO 0 % (0-6); Hematocrit 25.1 % (37.0-53.0); Hemoglobin 7.7 g/dL (13.5-17.5); IMMATURE GRAN PERCENT AUTO 1 % (0-1); LYMPHOCYTES ABSOLUTE AUTO 0.85 K/mm3 (0.84-5.20); LYMPHOCYTES PERCENT AUTO 6 % (21-46); MONOCYTES ABSOLUTE AUTO 0.45 K/mm3 (0.16-1.47); MONOCYTES PERCENT AUTO 3 % (4-13); Mean Corpuscular HGB 27.8 pg (26.0-34.0); Mean Corpuscular HGB Conc 30.7 g/dL (31.5-36.5); Mean Corpuscular Volume 91 fL (80-100); NEUTROPHILS ABSOLUTE AUTO 13.61 K/mm3 (1.96-9.15); NEUTROPHILS PERCENT AUTO 91 % (41-73); Platelet Count 329 K/mm3 (150-400); Red Blood Cell Count 2.77 M/mm3 (4.30-5.90); White Blood Cell Count 15.03 K/mm3 (4.00-11.30)
[2024-09-12 05:04] LABS: Albumin, Blood 2.2 g/dL (3.4-5.0); Albumin/Globulin Ratio 0.6 (0.8-1.8); Bilirubin, Total 0.5 mg/dL (0.1-1.0); Bun/Creatinine Ratio 34.9 (12.0-20.0); Calcium, Blood 8.3 mg/dL (8.5-10.1); Creatinine, Blood 0.52 mg/dL (0.60-1.20); Globulin, Blood 3.6 g/dL (2.2-4.0); Potassium, Blood 3.7 mmol/L (3.5-5.5); Total Protein, Blood 5.8 g/dL (6.4-8.2)
--- NOTE | 2024-09-12 05:08 | NUR ---
SHIFT SUMMARY A/OX4 AND COOPERATIVE WITH CARE. A LITTLE [place], BUT ABLE TO MAKE HIS NEEDS KNOWN. NO ACUTE EVENTS OVERNIGHT. CARDIAC, REMAINS IN AFIB RANGING 90-100'S WITH NO REPORTS OF CP, PRESSURE OR PALPITATIONS. SBP REMAINING STABLE >100, RESPIRATORY MAINTAINS SPO2 >90% ON RA WITH NO REPORT OF SOB OR DYSPNEA. PT PLACED ON 1LNC WHEN SLEEPING HOWEVER. CRACKLES NOTED IN RLL. GI/, DENIES N/V/D OR ABD PAIN. BS IN ALL QUADRANTS. PT ATTEMPTED TO HAVE BM ON BEDPAN, BUT ONLY PASSED DELVIS. PW IN PLACE DRAINING TEA COLORED URINE TO SUCTION. PT BEDREST AT THIS TIME DUE TO MISSING BACK BRACE TO HELP WITH RECENT SPINAL FX. HEPARIN gtt BEING MANAGED PER PHARMACY AND INFUSING ORDERED PER EMAR. PT'S LEFT FOOT BRACE INTACT WITH WOUND VAC IN PLACE. NO NEW ORDERS AT THIS TIME, WILL REPORT TO ONCOMING RN. ELDER ALCOCER OF THIS NOTE.
[2024-09-12] MEDS ORDERED: Dose Adjust by Pharmacy XX STA ×3 (05:18→21:44)
--- NOTE | 2024-09-12 05:34 | NUR ---
UPDATE PT CONTINUES TO HAVE POOR OUTPUT DESPITE AMOUNT OF FLUIDS INFUSED. URINE TEA IN COLOR. BLADDER SCAN SHOWED 317ml, PT DENIES NEED TO VOID AT THIS TIME.
[2024-09-12 08:05] VITALS: BP 134/70
[2024-09-12] MEDS ORDERED: NS 1,000 ML IV SCH (08:10)
[2024-09-12] MEDS ORDERED: Enoxaparin 40 MG/0.4 ML SYR SC SCH (09:00)
--- NOTE | 2024-09-12 10:45 | NUR ---
NURSE NOTE ASSUMED CARE OF THIS PATIENT AT 0700. DR. CARUSO ROUNDED ON PATIENT THIS MORNING, CHEST X-RAY ORDERED FOR PATIENT AND HOME MEDICATIONS. ST DEPRESSTION SEEN ON TELE MONITOR THIS AM, EKG ORDERED. WILL CONTINUE TO TREAT.
[2024-09-12] MEDS ORDERED: Polyethylene Glycol 3350 17 gm PO PRN (11:05)
[2024-09-12] MEDS ORDERED: Glycerin Adult Supp 1 EA PR PRN (11:10)
[2024-09-12] MEDS ORDERED: Aspirin 81 MG TabEC PO SCH (11:10)
[2024-09-12] MEDS ORDERED: Clopidogrel Bisulfate 75 MG Tab PO SCH (11:10)
[2024-09-12] MEDS ORDERED: TraMADol HCl 50 MG Tab PO PRN (11:10)
[2024-09-12] MEDS ORDERED: Bisacodyl 5 MG TabEC PO PRN (11:15)
[2024-09-12] MEDS ORDERED: Bisacodyl 10 MG Supp PR PRN ×2 (11:15→14:00)
[2024-09-12] MEDS ORDERED: Albuterol 2.5 MG/3 ML VIAL INH PRN (11:20)
[2024-09-12] MEDS ORDERED: Acetaminophen 325 MG TABLET PO PRN (11:40)
[2024-09-12] MEDS ORDERED: Metoclopramide HCl 10 MG Tab PO PRN (11:45)
[2024-09-12] MEDS ORDERED: Metoprolol Succinate 25 MG TABCR PO SCH (11:50)
[2024-09-12 11:59] VITALS: BP 141/71
[2024-09-12] MEDS ORDERED: Gabapentin 300 MG Cap PO SCH (14:00)
[2024-09-12] MEDS ORDERED: Hydrocortisone Sod Succinate 100 MG Vial IV SCH (14:00)
[2024-09-12] MEDS ORDERED: Melatonin 3 MG Tab PO PRN (14:00)
[2024-09-12] MEDS ORDERED: Nitroglycerin 0.4 MG SUBL SL PRN (14:00)
[2024-09-12] MEDS ORDERED: Ipratropium/Albuterol SulF 2.5-0.5MG/3 ML Amp INH SCH (14:05)
[2024-09-12 15:24] VITALS: BP 135/79
[2024-09-12] MEDS ORDERED: Famotidine 20 MG Tab PO SCH (16:30)
--- NOTE | 2024-09-12 17:41 | NUR ---
RIGHT LEG PROSTHESIS DROPPED OFF BY [facility] STAFF MEMBER, THEY STATED THEY DID NOT FIND HIS BACK BRACE BUT WILL LOOK AGAIN TOMORROW. CONFIRMED NON WEIGHT BEARING ON LEFT FOOT UNTIL HE IS CLEARED BY PT. [facility] RN STATES HAS BEEN USING JUSTYN LIFT TO PLACE ON COMMODE, NO BACK BRACE NEEDED FOR THIS, CONFIRMED VIA TELEPHONE WITH SPOUSE. STRAIGHT CATH THIS AFTERNOON FOR RETENTION, 800ML OUT VIA CATH. WILL CONTINUE TO TREAT UNTIL CHANGE OF SHIFT.
[2024-09-12 19:47] VITALS: BP 121/67
[2024-09-12] MEDS ORDERED: Arginine/Glutamine/Calcium Hmb 1 Packet PO SCH (21:00)
[2024-09-12] MEDS ORDERED: Sennosides 8.6 MG Tab PO SCH ×2 (21:00)
[2024-09-12] MEDS ORDERED: Atorvastatin 40 MG Tab PO SCH (21:00)
[2024-09-12] MEDS ORDERED: Calcium Carbonate 1,250 MG TABLET PO SCH (21:00)
[2024-09-12] MEDS ORDERED: DULoxetine HCL 20 MG Cap DR PO SCH (21:00)
[2024-09-12 21:19] LABS: Vancomycin, Trough 15.7 ug/mL (5.0-10.0)
[2024-09-13 00:30] VITALS: BP 104/64
--- NOTE | 2024-09-13 02:20 | NUR ---
LATE 0000 NOTE. PT REMAINS AOX4, PLEASANT, COOPERATIVE, ABLE TO REST IN BED. DENIES PAIN. UNABLE TO VOID THUS FAR THIS SHIFT. BLADDER SCANNED REVEALED BLADDER VOLUME OF 426 MLS. INFORMED PT THAT I WOULD GIVE HIM SOME TIME TO ATTEMPT TO VOID AND THEN LIKELY STRAIGHT CATH IF UNABLE TO DO SO. PT WAS STRAIGHT CATHd ON DAY SHIFT D/T RETENTION PER REPORT. BED LOCKED IN LOWEST POSTIION. CALL LIGHT LEFT WITHIN REACH. CONTINUING TO MONITOR.
[2024-09-13 03:27] VITALS: BP 119/62
--- NOTE | 2024-09-13 04:24 | NUR ---
SHIFT SUMMARY. SHIFT HAS BEEN MOSTLY UNREMARKABLE. PT AOX4, PLEASANT, COOPERATIVE, ABLE TO MAKE NEEDS KNOWN. HAS BEEN ABLE TO REST COMFORTABLY THROUGHOUT MOST OF SHIFT THUS FAR. HAS BEEN UNABLE TO VOID MORE THAN VERY MINIMAL AMOUNTS AT A TIME ON HIS OWN. THIS MORNING, PT WAS BLADDER SCAN REVEALING URINE VOLUME OF >400mls. GAVE PT OPPURTUNITY TO VOID BUT HE WAS UNABLE. STRAIGHT CATH PERFORMED PER PROTOCOL AND WAS ABLE TO DRAIN BLADDER. PT TOLERATED WELL. PER SHIFT REPORT PT WAS ALSO STRAIGHT CATHED ON DAY SHIFT 09/12 FOR SAME ISSUE. WILL CONTINUE TO MONITOR. OTHERWISE SHIFT HAS BEEN UNREMARKABLE. HEPARIN RUNNING THROUGHOUT SHIFT, RATE ADJUSTED ONE TIME. FLUIDS INFUSING THROUGHOUT SHIFT. VITALS HAVE REMAINED STABLE. WOUND VAC REMAINS IN PLACE ON LLE AND APPEARS TO BE FUNCTIONING PROPERLY. PT HAS DENIED PAIN OUTSIDE OF SOME POSITIONAL DISCOMFORT THAT IS RELIEVED VIA REPOSITIONING. BED LOCKED IN LOWEST POSITION. CALL LIGHT LEFT WITHIN REACH. CONTINUING TO MONITOR.
[2024-09-13 04:46] LABS: BASOPHILS ABSOLUTE AUTO 0.01 K/mm3 (0.00-0.23); BASOPHILS PERCENT AUTO 0 % (0-2); EOSINOPHILS PERCENT AUTO 0 % (0-6); Hematocrit 24.8 % (37.0-53.0); Hemoglobin 7.5 g/dL (13.5-17.5); IMMATURE GRAN PERCENT AUTO 1 % (0-1); LYMPHOCYTES ABSOLUTE AUTO 1.06 K/mm3 (0.84-5.20); LYMPHOCYTES PERCENT AUTO 7 % (21-46); MONOCYTES ABSOLUTE AUTO 0.97 K/mm3 (0.16-1.47); MONOCYTES PERCENT AUTO 6 % (4-13); Mean Corpuscular HGB 27.5 pg (26.0-34.0); Mean Corpuscular HGB Conc 30.2 g/dL (31.5-36.5); Mean Corpuscular Volume 91 fL (80-100); Mean Platelet Volume 10.4 fL (9.1-12.4); NEUTROPHILS PERCENT AUTO 86 % (41-73); Platelet Count 339 K/mm3 (150-400); RDW Coefficient Variation 16.6 % (11.7-14.2); RDW Standard Deviation 55.4 fL (35.1-46.3); Red Blood Cell Count 2.73 M/mm3 (4.30-5.90); White Blood Cell Count 15.74 K/mm3 (4.00-11.30)
[2024-09-13 05:13] LABS: Bun/Creatinine Ratio 36.8 (12.0-20.0); Calcium, Blood 8.3 mg/dL (8.5-10.1); Creatinine, Blood 0.54 mg/dL (0.60-1.20); Potassium, Blood 3.7 mmol/L (3.5-5.5)
[2024-09-13] MEDS ORDERED: Clarify Drug Order XX ONE (05:50)
[2024-09-13] MEDS ORDERED: Omeprazole 20 MG CapCR PO SCH (06:00)
[2024-09-13 08:01] VITALS: BP 117/73
[2024-09-13] MEDS ORDERED: Ascorbic Acid 500 MG Tab PO SCH ×2 (09:00)
[2024-09-13] MEDS ORDERED: Ferrous Sulfate 325 MG Tab PO SCH (09:00)
[2024-09-13] MEDS ORDERED: Ferrous Gluconate 325 MG Tablet PO SCH (09:00)
[2024-09-13] MEDS ORDERED: Tamsulosin HCl 0.4 MG Cap PO SCH (09:00)
[2024-09-13] MEDS ORDERED: Piperacillin/Tazobactam Sod 3.375 GM in NS 100 ML IV SCH (09:14)
[2024-09-13] MEDS ORDERED: Lactulose 20 GM/30 ML UDC PO ONE (10:00)
[2024-09-13] MEDS ORDERED: Magnesium Hydroxide Conc 10 ML UDC PO ONE (10:00)
[2024-09-13] MEDS ORDERED: Furosemide 10 MG/ML 4ML Vial IV SCH (11:00)
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
[2024-09-13 11:52] VITALS: BP 110/65
[2024-09-13 14:53] VITALS: BP 102/63
--- NOTE | 2024-09-13 18:03 | NUR ---
SHIFT SUMMARY A&O X4, ABLE TO MAKE NEEDS KNOWN, OBEYS COMMANDS, UPPER [place]. LIFT ASSISTANCE TO BSC, NON-WEIGHT BARING ON LEFT LEG, RIGHT BKA WITH PROSTHETIC LEG AT BEDSIDE, WHEN PT WAS TRANFERED TO BS WE USED THE LIFT AND PLACED THE PROSTETIC LEG, PT WAS ABLE TO STAND 2 PERSON ON PROSTHETIC LEG. CONTINOUS SPO2 MONITORING, PT REPORTS MOUTH BREATHING SO WAS SWITHCED TO THE OXI-MASK THIS AFTERNOON, SPO2 GREATER THAN 90% WHILE ON 2L O2 VIA OXI-MASK, LUNG SOUND CRACKLY T/O THAT IS WORSE IN THE BASES BILATERALLY AND DIMMINISHED IN THE BASES WELL. CONTINOUS CARDIAC MONITORING, HR 90-110'S, AFIB, DENIES CHEST P/P T/O THIS SHIFT, BP STABLE WITH MAP GREATER THAN 65.PT BLADDER SCANED THIS AM WITH 201 MLS IN BLADDER, PT HAD 100 ML VOID ON BSC, URINE YELLOW IN COLOR, PT STRAIGHT CATHED ONCE DAY SHIFT 09/12 AND AGAIN CONTROL ANALYST 09/12, PT HAD URINE INCONTINENCE THIS AFTERNOON. PT REPORTING CONSTIPATION THIS AM WITH MODERATE ABD DISTENTION NOTED WITH TENDERNESS TO PAPATION AND NAUSEA AND VOMITING X1. NAUSEA IMPROVED WITH MEDS AND RESOLVED AFTER BM, LARGE BM THIS SHIFT AFTER MULTIPLE BOWEL CARE MEDICATIONS, PT ALSO REPORTS FEELING SOB AFTER TAKING DRINKS OF WATER AND OCCATIONALLY COUGHS AFTER PO INTAKE, DUE TO NAUSEA AND VOMITING MORNING MEDS HELD, ONCE NAUSEA IMPROVED PO ASPARIN, METOPROLOL, PLAVIX, AND CYMALTA GIVEN. PT HAD MEPLILEX ON RIGHT AND LEFT ARMS FOR SMALL SKIN TEARS, DRESSING C/D/I, WOUND VAC TO LEFT FOOT DRAINING SEROSANGUINOUS FLUID, LEFT FOOT IS COVERED IN A DRESSING AND BRACE THAT IS C/D/I. DR. YO ROUNDED ON PT THIS AM, CHANGING PT ANTIBIOTICS AND ADDING IN NEW BOWEL CARE MEDICATIONS. SPEECH THERAPY SAW PT THIS AM, NEW ORDERS PLACED, POTENTIAL BARIUM SWALLOW TOMORROW 09/14.
[2024-09-13 23:24] VITALS: BP 100/61
--- NOTE | 2024-09-13 23:44 | NUR ---
ASSUMED CARE AT 1930. PT RESTING COMFORTABLY IN BED W/O ANY COMPLAINTS. PT ON RA. WILL CONTINUE PLAN OF CARE.
[2024-09-14] VITALS (7 sets, daily range): BP systolic 96–124; BP diastolic 56–66
[2024-09-14] MEDS ORDERED: Piperacillin/Tazobactam Sod 3.375 GM in NS 100 ML IV SCH
[2024-09-14 01:27] LABS: BASOPHILS ABSOLUTE AUTO 0.01 K/mm3 (0.00-0.23); BASOPHILS PERCENT AUTO 0 % (0-2); EOSINOPHILS PERCENT AUTO 0 % (0-6); Hematocrit 24.2 % (37.0-53.0); Hemoglobin 7.3 g/dL (13.5-17.5); IMMATURE GRAN ABSOLUTE AUTO 0.07 K/mm3 (0.00-0.10); IMMATURE GRAN PERCENT AUTO 1 % (0-1); LYMPHOCYTES ABSOLUTE AUTO 0.79 K/mm3 (0.84-5.20); LYMPHOCYTES PERCENT AUTO 7 % (21-46); MONOCYTES ABSOLUTE AUTO 0.65 K/mm3 (0.16-1.47); MONOCYTES PERCENT AUTO 6 % (4-13); Mean Corpuscular HGB 27.5 pg (26.0-34.0); Mean Corpuscular HGB Conc 30.2 g/dL (31.5-36.5); Mean Corpuscular Volume 91 fL (80-100); Mean Platelet Volume 10.9 fL (9.1-12.4); NEUTROPHILS ABSOLUTE AUTO 9.24 K/mm3 (1.96-9.15); NEUTROPHILS PERCENT AUTO 86 % (41-73); Platelet Count 322 K/mm3 (150-400); RDW Coefficient Variation 16.7 % (11.7-14.2); RDW Standard Deviation 55.8 fL (35.1-46.3); Red Blood Cell Count 2.65 M/mm3 (4.30-5.90); White Blood Cell Count 10.76 K/mm3 (4.00-11.30)
[2024-09-14 01:50] LABS: Magnesium, Blood 1.7 mg/dL (1.6-2.4)
[2024-09-14 01:55] LABS: Albumin, Blood 2.1 g/dL (3.4-5.0); Albumin/Globulin Ratio 0.6 (0.8-1.8); Bilirubin, Total 0.5 mg/dL (0.1-1.0); Bun/Creatinine Ratio 27.6 (12.0-20.0); Calcium, Blood 8.2 mg/dL (8.5-10.1); Creatinine, Blood 0.62 mg/dL (0.60-1.20); Globulin, Blood 3.5 g/dL (2.2-4.0); Phosphorus, Blood 2.4 mg/dL (2.5-4.9); Potassium, Blood 3.3 mmol/L (3.5-5.5); Total Protein, Blood 5.6 g/dL (6.4-8.2)
--- NOTE | 2024-09-14 03:51 | NUR ---
SHIFT SUMMARY PT REMAINS ON 2L NC WITH SAT ABOVE 93%. PT HAD ONE EPISODE OF EMESIS OF 1200 ML THAT WAS RESOLVED WITH IV ZOSYN, TRACE AMOUNT OF BLOOD NOTED IN EMESIS. PT DOES NOT COMPLAIN OF ANY OTHER DISCOMFORT OR PAIN. NO OTHER ACUTE EVENTS OVER NIGHT, WILL CONTINUE PLAN OF CARE.
[2024-09-14 04:26] LABS: BASOPHILS ABSOLUTE AUTO 0.01 K/mm3 (0.00-0.23); BASOPHILS PERCENT AUTO 0 % (0-2); EOSINOPHILS PERCENT AUTO 0 % (0-6); Hematocrit 24.6 % (37.0-53.0); Hemoglobin 7.4 g/dL (13.5-17.5); IMMATURE GRAN ABSOLUTE AUTO 0.08 K/mm3 (0.00-0.10); IMMATURE GRAN PERCENT AUTO 1 % (0-1); LYMPHOCYTES ABSOLUTE AUTO 0.85 K/mm3 (0.84-5.20); LYMPHOCYTES PERCENT AUTO 8 % (21-46); MONOCYTES ABSOLUTE AUTO 0.95 K/mm3 (0.16-1.47); MONOCYTES PERCENT AUTO 9 % (4-13); Mean Corpuscular HGB 27.5 pg (26.0-34.0); Mean Corpuscular HGB Conc 30.1 g/dL (31.5-36.5); Mean Corpuscular Volume 91 fL (80-100); Mean Platelet Volume 10.1 fL (9.1-12.4); NEUTROPHILS PERCENT AUTO 83 % (41-73); Platelet Count 308 K/mm3 (150-400); RDW Coefficient Variation 16.8 % (11.7-14.2); RDW Standard Deviation 55.8 fL (35.1-46.3); Red Blood Cell Count 2.69 M/mm3 (4.30-5.90); White Blood Cell Count 11.09 K/mm3 (4.00-11.30)
[2024-09-14 04:56] LABS: Bun/Creatinine Ratio 26.8 (12.0-20.0); Calcium, Blood 8.3 mg/dL (8.5-10.1); Creatinine, Blood 0.63 mg/dL (0.60-1.20)
[2024-09-14] MEDS ORDERED: Potassium Chloride 20 MEQ TabCR PO ONE ×2 (08:10→10:45)
[2024-09-14] MEDS ORDERED: Apixaban 5 MG Tab PO SCH (08:15)
[2024-09-14] MEDS ORDERED: Empagliflozin 10 MG TAB PO SCH (09:00)
[2024-09-14] MEDS ORDERED: Losartan Potassium 25 MG Tab PO SCH (09:00)
[2024-09-14] MEDS ORDERED: Metoprolol Succinate 50 MG TABCR PO SCH (09:00)
[2024-09-14] MEDS ORDERED: Calcium Carbonate 500 MG Tab Chew PO PRN (10:05)
[2024-09-14] MEDS ORDERED: Simethicone 80 MG Chew PO PRN (10:10)
--- NOTE | 2024-09-14 15:07 | NUR ---
SHIFT SUMMARY A&O x4, obeys command and able to make needs known, bedrest at this time, lift to chair/bsc, pt has right bka, and left foot is nonweight bearing for toe amputation and heel wound vac, pt needing back brace for previous injury to back/ pt claims brace is at [place] to bring brace to pt 09/14, pt able to move all extremities, has generalized weakness. Continuous spo2, spo2 greater than 95% while on 2L O2 via NC, lungs sound crackly and diminished t/o with coarse crackles in the bases. Continuous cardiac monitoring, afib, 90-100 s hr, denies chest p/p, does report heart burn/medicated with tums. n&v this am prior to the start of this shift, pt continued to report nausea/medicated per orders/improved nausea, no bm this shift/daily bowel care meds given/pt not reporting constipation at this time. Pt incontinence of urine, having frequent wet attends, male external catheter placed this afternoon. Wound vac dressing C/D/I, last changed 09/13, sutures on left foot from where toes were appulated/ dressing C/D/I. Echo done today and resulted. Pt went to a barium swallow test this morning, new orders were placed.
[2024-09-14] MEDS ORDERED: Potassium Chloride 20 MEQ TabCR PO SCH (17:00)
[2024-09-14] MEDS ORDERED: Thiamine HCl 100 MG Tab PO SCH (17:40)
--- NOTE | 2024-09-14 18:28 | NUR ---
SHIFT SUMMARY ASSUMED CARE OF PATIENT AT APPROX 1500. NO ACUTE CHANGES NOTED. VSS. WILL CONTINUE TO MONITOR.
--- NOTE | 2024-09-14 21:24 | NUR ---
ASSUMED CARE THIS RN ASSUMED CARE AT APPROXIMATELY 1915. PT SLEEPING AND RESTING COMFORTABLY IN BED. STORY CATH EMPTIED 2L OUT. PT ON 2L NC SAT ABOVE 95%. DENIES ANY PAIN OR SOB. WILL CONTINUE PLAN OF CARE.
[2024-09-15] VITALS: BP 118/61
[2024-09-15 03:55] LABS: Bun/Creatinine Ratio 33.6 (12.0-20.0); Calcium, Blood 8.6 mg/dL (8.5-10.1); Creatinine, Blood 0.74 mg/dL (0.60-1.20); Magnesium, Blood 1.6 mg/dL (1.6-2.4); Phosphorus, Blood 2.5 mg/dL (2.5-4.9)
[2024-09-15 04:00] VITALS: BP 108/63
--- NOTE | 2024-09-15 04:15 | NUR ---
SHIFT SUMMARY PT REMAINED COMFORTABLY RESTING IN BED ON 2L NC THROUGHOUT NIGHT. PT DENIES ANY PAIN OR DISCOMFORT. MD CALLED TO NOTIFY OF LOW POTASSIUM, MD UNAVAILABLE, WILL CONTINUE TO TRY TO NOTIFY MD FOR FURTHER ORDERS. NO OTHER ACUTE EVENTS OVERNIGHT. WILL CONTINUE PLAN OF CARE.
[2024-09-15] MEDS ORDERED: Potassium Chloride 10 Meq Tablet SA PO ONE (04:55)
[2024-09-15] MEDS ORDERED: Magnesium Sulf 2 GM/Water 50ML 50 ML IV SCH (05:05)
[2024-09-15] MEDS ORDERED: Magnesium Sulf 2 GM/Water 50ML 50 ML IV ONE (05:15)
[2024-09-15] MEDS ORDERED: Pantoprazole Sodium 20 MG Tab PO SCH (06:00)
[2024-09-15 07:39] VITALS: BP 104/58
[2024-09-15] MEDS ORDERED: Multivitamins 1 Tab PO SCH (09:00)
[2024-09-15] MEDS ORDERED: Amoxicillin/Clavulanate K 875 MG Tab PO SCH (09:00)
[2024-09-15] MEDS ORDERED: Furosemide 40 MG Tab PO SCH (09:00)
[2024-09-15 12:00] VITALS: BP 104/56
[2024-09-15] MEDS ORDERED: PredniSONE 5 MG Tab PO SCH (12:00)
[2024-09-15 15:35] VITALS: BP 103/52
--- NOTE | 2024-09-15 16:13 | NUR ---
NOTIFIED MD OF PT POTASSIUM LEVEL OF 2.9. MD INFORMED OF 20 MEQ POTASSIUM GIVEN THAT WAS SCHEDULED FOR 1700. MD TO LOOK AT LABS AND PLACE NEW ORDERS.
[2024-09-15] MEDS ORDERED: Potassium Chl 20MEQ/Water100ML 100 ML IV SCH (16:20)
--- NOTE | 2024-09-15 18:05 | NUR ---
SHIFT SUMMARY PT A/OX4 AND COOPERATIVE OF CARE. PT ABLE TO EXPRESS NEEDS AND CALLS APPROPIATE. BP'S SOFT BUT STABLE THROUGHOUT SHIFT. PT ON 2 L NC AT SHIFT CHANGE, TITRATED TO RA AND SATS REMAINED IN THE 90'S. PT DID ENDORSE SOME "CHEST TIGHTNESS" WHEN TAKING IN DEEP BREATHS. OTHER VSS THROUGHOUT SHIFT. NO SOB REPORTED WITH "CHEST TIGHTNESS." PT WORKED WITH THERAPY TODAY, SEE THERAPIST NOTES. PT HAD CONDOM CATH IN PLACE AT BEGINNING OF SHIFT, SWTCHED TO PUREWICK D/T LEAKING, YELLOW/BRIGHT URINE.
[2024-09-15 21:25] VITALS: BP 111/67
--- NOTE | 2024-09-15 22:26 | NUR ---
ASSUMED CARE ASSUMED CARE AT APPROXIMATELY 1915. PT RESTING COMFORTABLY IN BED WITH NO COMPLAINTS OF PAIN. PT ON RA SAT ABOVE 93%. PT IN NSR-ST TO AFIB. WILL CONTINUE PLAN OF CARE.
[2024-09-16 00:36] VITALS: BP 109/59
--- NOTE | 2024-09-16 06:04 | NUR ---
SHIFT SUMMARY: Pt is admitted for PNA and is a full code. Is alert and able to make needs known. ADLs have been 1p but is on bed rest. Denies pain or discomfort when asked. Power glide to right upper arm is patent with dressing that is CDI. wound vac to left heel is intact.
[2024-09-16 06:13] LABS: Hematocrit 25.9 % (37.0-53.0); Hemoglobin 7.6 g/dL (13.5-17.5); Mean Corpuscular HGB 27.7 pg (26.0-34.0); Mean Corpuscular HGB Conc 29.3 g/dL (31.5-36.5); Mean Corpuscular Volume 95 fL (80-100); NRBC ABSOLUTE 0.04 K/mm3 (0.00-0.02); NRBC Auto 0.4 /100 WBC (0.0-0.2); Platelet Count 303 K/mm3 (150-400); RDW Coefficient Variation 17.8 % (11.7-14.2); RDW Standard Deviation 60.3 fL (35.1-46.3); Red Blood Cell Count 2.74 M/mm3 (4.30-5.90); White Blood Cell Count 9.26 K/mm3 (4.00-11.30)
[2024-09-16 06:45] LABS: Bun/Creatinine Ratio 41.6 (12.0-20.0); Calcium, Blood 8.9 mg/dL (8.5-10.1); Creatinine, Blood 0.7 mg/dL (0.60-1.20); Potassium, Blood 3.9 mmol/L (3.5-5.5)
[2024-09-16 07:28] VITALS: BP 106/63
[2024-09-16] MEDS ORDERED: Dextrose 5% 1,000 ML IV SCH (08:00)
[2024-09-16 15:32] VITALS: BP 111/65
--- NOTE | 2024-09-16 17:00 | NUR ---
SHIFT SUMMARY: PATIENT A/OX3, CALM, PLEASANT AND COOPERATIVE c CARE. PATIENT DENIES GENERALIZED PAIN, CP/PRESSURE, SOB, N/V AND DIZZINESS. PATIENT ON TELE, AFIB HR IN THE HIGH 80'S BPM. PATIENT HAS MOD APPETITE, MALE PUREWICK IN PLACED FOR INCONTINENT VOID, TOLERATING WELL. PATIENT REPOSITIONED, BOTH SIDE/BLE'S FLOATED ON PILLOWS T/O SHIFT. PATIENT HAS WOUND VAC TO L FOOT, APPEARS NO DRAINAIGE IN CANISTER THIS SHIFT. PATIENT RECEIVED SCHEDULED MEDS PER EMAR. POWERGLIDE TO OSCAR INFUSING D5. VITAL SIGNS REVIEWED. CALL LIGHT IN REACH.
[2024-09-16 19:11] VITALS: BP 108/62
[2024-09-17 03:56] VITALS: BP 120/62
[2024-09-17 06:00] LABS: Calcium, Blood 8.8 mg/dL (8.5-10.1); Creatinine, Blood 0.69 mg/dL (0.60-1.20)
--- NOTE | 2024-09-17 06:04 | NUR ---
SHIFT SUMMARY: Pt is admitted for PNA and is a full code. Is alert and able to make needs known. ADLs have been 1p but is on bed rest. Denies pain or discomfort when asked. Power glide to right upper arm is patent with dressing that is CDI. wound vac to left heel is intact. On second vital round M[employer] WEDGE SAWYER informed this LN that PT SPO2 was 87%. PT was on room air. He stated that he was a little short of breath. Lung sounds were dim and tight. After attempting to have him deep breath SPO2 did not recover i made it as low as 81%. Started him on 2lpm via NC SPO2 recovered in a little less than a min. After about 5 min of maintaining 98 - 100% attempted to go back to room air. It took about 5 min for PT to get back down to less than 89%. Requested breathing TX from RT and placed back on 2LPM. Shortly after breathing TX complete he stated he is breathing a little better. Attempted room air again. As before it took about 5 min to go from 98 - 100% to below 89% started on 1lpm. SPO2 recovered and has been maintaining better than 96% on spot checks following. PT also seems to be a little more lethargic than last couple of nights during interactions. But still at baseline mentation. Reported changes to charge nurse.
[2024-09-17 07:27] VITALS: BP 111/69
[2024-09-17] MEDS ORDERED: Dextrose 5% 1,000 ML IV SCH (08:00)
[2024-09-17] MEDS ORDERED: Furosemide 10 MG/ML 4ML Vial IV SCH (09:00)
[2024-09-17 12:32] LABS: SARS-Cov-2 (COVID-19) PCR, MMC NEGATIVE (NEGATIVE)
[2024-09-17] MEDS ORDERED: Magnesium Hydroxide Conc 10 ML UDC PO PRN (13:25)
[2024-09-17] MEDS ORDERED: Magnesium Hydroxide Conc 10 ML UDC PO ONE (13:25)
[2024-09-17] MEDS ORDERED: POLYETHYLENE GLYCOL PO (14:39)
[2024-09-17] MEDS ORDERED: AMOX-CLAV 875-1 EAC1 PO (14:41)
[2024-09-17] MEDS ORDERED: JARDIANCE10 MG PO (14:41)
[2024-09-17] MEDS ORDERED: JUVEN PACKET1 EAC3 PO (14:41)
[2024-09-17] MEDS ORDERED: LOSA25 PO (14:42)
[2024-09-17] MEDS ORDERED: MULVITA PO (14:44)
[2024-09-17] MEDS ORDERED: SIME80CH PO (14:45)
[2024-09-17] MEDS ORDERED: B-1100 M1 PO (14:47)
[2024-09-17] MEDS ORDERED: VISBIOME 112.51 EACH PO (14:49)
[2024-09-17] MEDS ORDERED: DOCU100 PO (14:53)
[2024-09-17] MEDS ORDERED: FURO40 PO (14:53)
[2024-09-17] MEDS ORDERED: PANT20 PO (14:55)
--- NOTE | 2024-09-17 15:01 | NUR ---
PT DISCHARGED BACK TO THE [facility]. PT TRANSPORTED VIA WHEELCHAIR. ALL VALUABLES SENT WITH THE PT. HARD SCRIPT SENT WITH THE PT. REPORT CALLED AND GIVEN TO [facility] RN.
== END 2024-09-17 14:57 | DRG 871 ==
LOC: ER 07:42 → PCU 11:56 → MEDS 11:56 → PCU 12:23 → MEDS 09-16 00:25
PROVIDERS: Internal Medicine; Student in an Organized Health Care Education/Training Program; ADMIT Internal Medicine
DX: A41.9 Sepsis, unspecified organism (principal); G92.8 Other toxic encephalopathy; I50.43 Acute on chronic combined systolic (congestive) and diastolic (congestive) heart failure; J18.9 Pneumonia, unspecified organism; J96.01 Acute respiratory failure with hypoxia; J69.0 Pneumonitis due to inhalation of food and vomit; E44.0 Moderate protein-calorie malnutrition; J44.0 Chronic obstructive pulmonary disease with (acute) lower respiratory infection; Z68.1 Body mass index [BMI] 19.9 or less, adult; I48.0 Paroxysmal atrial fibrillation; R65.20 Severe sepsis without septic shock; E11.51 Type 2 diabetes mellitus with diabetic peripheral angiopathy without gangrene; I11.0 Hypertensive heart disease with heart failure; E78.00 Pure hypercholesterolemia, unspecified; N40.0 Benign prostatic hyperplasia without lower urinary tract symptoms; M10.9 Gout, unspecified; M35.3 Polymyalgia rheumatica; K21.9 Gastro-esophageal reflux disease without esophagitis; E11.621 Type 2 diabetes mellitus with foot ulcer; E87.6 Hypokalemia; R11.0 Nausea; R13.10 Dysphagia, unspecified; I95.9 Hypotension, unspecified; L97.529 Non-pressure chronic ulcer of other part of left foot with unspecified severity; Z87.891 Personal history of nicotine dependence; D63.1 Anemia in chronic kidney disease; G89.29 Other chronic pain; M54.9 Dorsalgia, unspecified; Z88.5 Allergy status to narcotic agent; Z88.8 Allergy status to other drugs, medicaments and biological substances; Z91.013 Allergy to seafood; Z79.01 Long term (current) use of anticoagulants; Z79.899 Other long term (current) drug therapy; Z79.84 Long term (current) use of oral hypoglycemic drugs; Z89.511 Acquired absence of right leg below knee; Z89.412 Acquired absence of left great toe; Z89.422 Acquired absence of other left toe(s)
CPT/HCPCS: 0202U; 0241U; 36415; 51701; 70450; 71045; 71046; 73630; 74230; 80048; 80053; 80076; 80202; 81001; 82947; 83605; 83735; 83880; 84100; 84132; 84145; 84295; 85025; 85027; 85610; 85730; 87040; 92526; 92610; 92611; 93005; 93010; 93306; 94640; 94664; 94760; 94762; 96361; 96365; 96367; 97110; 97162; 97530; 99285-25; A9270; C1751; J0456; J0692; J1644; J1720; J1815; J1940; J2405; J2470; J2543; J3370; J3475; J3480; J7030; J7050; J7070; J7512; U0002

== ENCOUNTER 2024-09-17 22:55 | Observation (INO) | payer OTHER ==
[~2024-09-17] VITALS: Ht 180.3 cm; Wt 78.5 kg
[~2024-09-17 22:55] MED LIST changes: +AMOX-CLAV 875-1 EAC1 PO; +ASCORBIC ACID500 MG PO; +B-1100 M1 PO; +BISA5EC PO; +Cymbalta20 MG PO; +GLUCOPHAGE1000 M1 PO; +JARDIANCE10 MG PO; +JUVEN PACKET1 EAC3 PO; +K-Dur10 MEQ PO; +LOSA25 PO; +METO5A PO; +MULVITA PO; +Masophen500 MG PO; +NALOXONE H0.4 MG/1 M; +ONDA4 PO; +PANT20 PO; +POLYETHYLENE GLYCOL PO; +SIME80CH PO; +VISBIOME 112.51 EACH PO; +XARELTO20 MG PO
[2024-09-18 01:02] LABS: BASOPHILS ABSOLUTE AUTO 0.03 K/mm3 (0.00-0.23); BASOPHILS PERCENT AUTO 0 % (0-2); EOSINOPHILS ABSOLUTE AUTO 0.13 K/mm3 (0.00-0.68); EOSINOPHILS PERCENT AUTO 1 % (0-6); Hematocrit 27.6 % (37.0-53.0); IMMATURE GRAN PERCENT AUTO 2 % (0-1); LYMPHOCYTES PERCENT AUTO 15 % (21-46); MONOCYTES ABSOLUTE AUTO 1.06 K/mm3 (0.16-1.47); MONOCYTES PERCENT AUTO 11 % (4-13); Mean Corpuscular HGB 27.4 pg (26.0-34.0); Mean Corpuscular Volume 95 fL (80-100); Mean Platelet Volume 10.7 fL (9.1-12.4); NEUTROPHILS ABSOLUTE AUTO 6.84 K/mm3 (1.96-9.15); NEUTROPHILS PERCENT AUTO 70 % (41-73); NRBC ABSOLUTE 0.04 K/mm3 (0.00-0.02); NRBC Auto 0.4 /100 WBC (0.0-0.2); Platelet Count 281 K/mm3 (150-400); RDW Coefficient Variation 18.2 % (11.7-14.2); RDW Standard Deviation 62.4 fL (35.1-46.3); Red Blood Cell Count 2.92 M/mm3 (4.30-5.90); White Blood Cell Count 9.76 K/mm3 (4.00-11.30)
[2024-09-18 01:21] LABS: International Normalized Ratio 1.25; Prothrombin Time Results 13.2 Sec (9.7-11.5)
[2024-09-18 01:29] LABS: Albumin, Blood 2.4 g/dL (3.4-5.0); Albumin/Globulin Ratio 0.8 (0.8-1.8); Bilirubin, Total 0.5 mg/dL (0.1-1.0); Bun/Creatinine Ratio 37.8 (12.0-20.0); Calcium, Blood 8.9 mg/dL (8.5-10.1); Creatinine, Blood 0.74 mg/dL (0.60-1.20); Globulin, Blood 3.2 g/dL (2.2-4.0); Potassium, Blood 4.5 mmol/L (3.5-5.5); Thyroid Stimulating Hormone 2.43 uIU/mL (0.360-4.800); Total Protein, Blood 5.6 g/dL (6.4-8.2)
[2024-09-18 02:09] LABS: Source, Urine Clean Catch
[2024-09-18 02:15] LABS: Bilirubin, Urine Neg (Neg); Blood, Urine 5+ (Neg); Glucose Qualitative, Urine 4+ (Neg); Ketones, Urine Neg (Neg); Leukocyte Esterase, Urine 1+ (Neg); Nitrite, Urine Neg (Neg); Protein, Urine Neg (Neg); Specific Gravity, Urine 1.005 (1.003-1.022); Urobilinogen, Urine 2+ (Normal)
[2024-09-18 02:30] VITALS: BP 102/62
[2024-09-18 02:30] LABS: Appearance, Urine Clear (Clear); Color, Urine Yellow (P-Yellow)
[2024-09-18 02:32] LABS: White Blood Cells, Urine 0-2 /hpf (0-5)
[2024-09-18 02:33] LABS: Bacteria Not Seen /hpf; Red Blood Cells, Urine TNTC /hpf (0-2); Squamous Epithelial Cells Rare /hpf (Few)
== END 2024-09-18 06:30 | disposition home or self-care (01) ==
LOC: ER 22:55 → MEDS 22:56
PROVIDERS: Emergency Medicine; ADMIT Internal Medicine
DX: J18.9 Pneumonia, unspecified organism (principal); I95.9 Hypotension, unspecified; D64.9 Anemia, unspecified; I48.0 Paroxysmal atrial fibrillation; J44.9 Chronic obstructive pulmonary disease, unspecified; I11.0 Hypertensive heart disease with heart failure; I50.42 Chronic combined systolic (congestive) and diastolic (congestive) heart failure; E78.00 Pure hypercholesterolemia, unspecified; N40.0 Benign prostatic hyperplasia without lower urinary tract symptoms; M35.3 Polymyalgia rheumatica; K21.9 Gastro-esophageal reflux disease without esophagitis; E11.9 Type 2 diabetes mellitus without complications; Z87.891 Personal history of nicotine dependence; Z79.01 Long term (current) use of anticoagulants; Z79.02 Long term (current) use of antithrombotics/antiplatelets; Z79.899 Other long term (current) drug therapy; Z88.5 Allergy status to narcotic agent; Z88.8 Allergy status to other drugs, medicaments and biological substances; Z91.013 Allergy to seafood; Z89.511 Acquired absence of right leg below knee; Z89.412 Acquired absence of left great toe; Z89.422 Acquired absence of other left toe(s)
CPT/HCPCS: 36415; 71045; 80053; 81001; 83605; 83735; 84443; 84484; 85025; 85610; 85730; 86850; 86900; 86901; 87040; 99285-25; G0378

== ENCOUNTER 2024-09-18 13:15 | Emergency (ER) | payer OTHER ==
[~2024-09-18] VITALS: Ht 180.3 cm; Wt 77.1 kg
[2024-09-18 14:36] LABS: BASOPHILS ABSOLUTE AUTO 0.05 K/mm3 (0.00-0.23); BASOPHILS PERCENT AUTO 1 % (0-2); EOSINOPHILS ABSOLUTE AUTO 0.19 K/mm3 (0.00-0.68); EOSINOPHILS PERCENT AUTO 2 % (0-6); Hematocrit 28.6 % (37.0-53.0); Hemoglobin 8.3 g/dL (13.5-17.5); IMMATURE GRAN ABSOLUTE AUTO 0.22 K/mm3 (0.00-0.10); IMMATURE GRAN PERCENT AUTO 2 % (0-1); LYMPHOCYTES ABSOLUTE AUTO 1.33 K/mm3 (0.84-5.20); LYMPHOCYTES PERCENT AUTO 13 % (21-46); MONOCYTES ABSOLUTE AUTO 1.01 K/mm3 (0.16-1.47); MONOCYTES PERCENT AUTO 10 % (4-13); Mean Corpuscular HGB 27.9 pg (26.0-34.0); Mean Corpuscular Volume 96 fL (80-100); NEUTROPHILS ABSOLUTE AUTO 7.66 K/mm3 (1.96-9.15); NEUTROPHILS PERCENT AUTO 73 % (41-73); NRBC ABSOLUTE 0.02 K/mm3 (0.00-0.02); NRBC Auto 0.2 /100 WBC (0.0-0.2); Platelet Count 274 K/mm3 (150-400); RDW Coefficient Variation 18.5 % (11.7-14.2); RDW Standard Deviation 63.7 fL (35.1-46.3); Red Blood Cell Count 2.98 M/mm3 (4.30-5.90); White Blood Cell Count 10.46 K/mm3 (4.00-11.30)
[2024-09-18 14:59] LABS: Bun/Creatinine Ratio 34.3 (12.0-20.0); Calcium, Blood 9.1 mg/dL (8.5-10.1); Creatinine, Blood 0.76 mg/dL (0.60-1.20)
[2024-09-18 15:44] LABS: Influenza A, PCR NEGATIVE (NEGATIVE); Influenza B, PCR NEGATIVE (NEGATIVE); Resp Syncytial Virus, PCR NEGATIVE (NEGATIVE); SARS-Cov-2 (COVID-19) PCR, MMC NEGATIVE (NEGATIVE)
[2024-09-18] MEDS ORDERED: NS 500 ML IV SCH (16:45)
[2024-09-18 18:47] VITALS: BP 119/58
== END 2024-09-18 18:47 | disposition home or self-care (01) ==
LOC: ER 13:15
PROVIDERS: Emergency Medicine
DX: I95.1 Orthostatic hypotension (principal); S60.415A Abrasion of left ring finger, initial encounter; I11.0 Hypertensive heart disease with heart failure; I50.42 Chronic combined systolic (congestive) and diastolic (congestive) heart failure; K21.9 Gastro-esophageal reflux disease without esophagitis; J44.9 Chronic obstructive pulmonary disease, unspecified; E11.42 Type 2 diabetes mellitus with diabetic polyneuropathy; X58.XXXA Exposure to other specified factors, initial encounter; Z87.01 Personal history of pneumonia (recurrent); Z87.891 Personal history of nicotine dependence; Z79.84 Long term (current) use of oral hypoglycemic drugs; Z79.52 Long term (current) use of systemic steroids; Z79.02 Long term (current) use of antithrombotics/antiplatelets; Z88.5 Allergy status to narcotic agent; Z91.041 Radiographic dye allergy status; Z91.013 Allergy to seafood
CPT/HCPCS: 0241U; 80048; 85025; 93005; 93010; 96360; 99285-25; J7030

== ENCOUNTER 2025-01-01 17:00 | Inpatient (IN) | payer OTHER ==
[2025-01-01] VITALS (18 sets, daily range): BP systolic 83–114; BP diastolic 54–75
[~2025-01-01] VITALS: Ht 177.8 cm; Wt 78.3 kg
[2025-01-01] MEDS ORDERED: NS 500 ML IV SCH (17:15)
[2025-01-01] MEDS ORDERED: Acetaminophen 500 MG Tab PO ONE (17:15)
[2025-01-01] MEDS ORDERED: Piperacillin/Tazobactam Sod 3.375 GM in NS 100 ML IV ONE (17:20)
[2025-01-01 17:26] LABS: BASOPHILS ABSOLUTE AUTO 0.05 K/mm3 (0.00-0.23); BASOPHILS PERCENT AUTO 0 % (0-2); EOSINOPHILS ABSOLUTE AUTO 0.05 K/mm3 (0.00-0.68); EOSINOPHILS PERCENT AUTO 0 % (0-6); Hematocrit 28.7 % (37.0-53.0); Hemoglobin 9.1 g/dL (13.5-17.5); IMMATURE GRAN ABSOLUTE AUTO 0.16 K/mm3 (0.00-0.10); IMMATURE GRAN PERCENT AUTO 1 % (0-1); LYMPHOCYTES ABSOLUTE AUTO 1.57 K/mm3 (0.84-5.20); LYMPHOCYTES PERCENT AUTO 8 % (21-46); MONOCYTES ABSOLUTE AUTO 1.89 K/mm3 (0.16-1.47); MONOCYTES PERCENT AUTO 10 % (4-13); Mean Corpuscular HGB 27.7 pg (26.0-34.0); Mean Corpuscular HGB Conc 31.7 g/dL (31.5-36.5); Mean Corpuscular Volume 88 fL (80-100); Mean Platelet Volume 10.9 fL (9.1-12.4); NEUTROPHILS ABSOLUTE AUTO 15.76 K/mm3 (1.96-9.15); NEUTROPHILS PERCENT AUTO 81 % (41-73); NRBC ABSOLUTE 0.02 K/mm3 (0.00-0.02); NRBC Auto 0.1 /100 WBC (0.0-0.2); Platelet Count 203 K/mm3 (150-400); RDW Coefficient Variation 18.4 % (11.7-14.2); RDW Standard Deviation 58.9 fL (35.1-46.3); Red Blood Cell Count 3.28 M/mm3 (4.30-5.90); White Blood Cell Count 19.48 K/mm3 (4.00-11.30)
[2025-01-01] MEDS ORDERED: Aspir 8181 MG PO (17:54)
[2025-01-01] MEDS ORDERED: GABA800 PO (17:55)
[2025-01-01 18:00] LABS: Magnesium, Blood 1.7 mg/dL (1.6-2.4)
[2025-01-01] MEDS ORDERED: GUAI600T33 PO (18:00)
[2025-01-01] MEDS ORDERED: OMEP20ER PO (18:01)
[2025-01-01] MEDS ORDERED: SULFAMETHOXAZO1 EAC1 PO (18:03)
[2025-01-01] MEDS ORDERED: STIOLTO RESPIMAT4 G1 INH (18:04)
[2025-01-01 18:05] LABS: Albumin, Blood 2.7 g/dL (3.4-5.0); Albumin/Globulin Ratio 0.7 (0.8-1.8); Bilirubin, Total 0.5 mg/dL (0.1-1.0); Bun/Creatinine Ratio 32.2 (12.0-20.0); Calcium, Blood 8.8 mg/dL (8.5-10.1); Creatinine, Blood 1.18 mg/dL (0.60-1.20); Globulin, Blood 3.8 g/dL (2.2-4.0); Phosphorus, Blood 4.1 mg/dL (2.5-4.9); Potassium, Blood 5.4 mmol/L (3.5-5.5); Total Protein, Blood 6.5 g/dL (6.4-8.2)
[2025-01-01 18:23] LABS: Influenza A, PCR NEGATIVE (NEGATIVE); Influenza B, PCR NEGATIVE (NEGATIVE); Resp Syncytial Virus, PCR NEGATIVE (NEGATIVE); SARS-Cov-2 (COVID-19) PCR, MMC NEGATIVE (NEGATIVE)
[2025-01-01] MEDS ORDERED: Vancomycin HCL 1,250 MG in NS 250 ML IV ONE (18:25)
[2025-01-01] MEDS ORDERED: Lactated Ringer's 1,000 ML IV ONE (19:45)
[2025-01-01] MEDS ORDERED: Albuterol 2.5 MG/3 ML VIAL INH PRN (19:55)
[2025-01-01] MEDS ORDERED: Lactated Ringer's 1,000 ML IV SCH ×2 (19:55→20:00)
[2025-01-01] MEDS ORDERED: Ondansetron HCl 2 MG / ML 2ML Vial IV PRN (20:00)
[2025-01-01] MEDS ORDERED: Hydrocortisone Sod Succinate 100 MG Vial IV SCH (20:00)
[2025-01-01] MEDS ORDERED: Ipratropium/Albuterol SulF 2.5-0.5MG/3 ML Amp INH SCH (20:30)
[2025-01-01] MEDS ORDERED: Atorvastatin 40 MG Tab PO SCH (21:00)
[2025-01-01] MEDS ORDERED: Vancomycin HCL 500 MG in NS 250 ML IV ONE (21:00)
[2025-01-01] MEDS ORDERED: Famotidine 20 MG Tab PO SCH (21:00)
[2025-01-01] MEDS ORDERED: Lactobacil 2-S.Thermo-Bifido 1 1 Cap PO SCH (21:00)
[2025-01-01] MEDS ORDERED: Gabapentin 300 MG Cap PO SCH (21:00)
[2025-01-01] MEDS ORDERED: Enoxaparin 40 MG/0.4 ML SYR SC ONE (21:35)
[2025-01-01] MEDS ORDERED: Lactated Ringer's 500 ML IV ONE (23:00)
--- NOTE | 2025-01-01 23:14 | NUR ---
TRANSFER FROM ED: PT TRANSFERRED VIA GURNEY FROM ED TO ICU 3, SLID W/SLIDER SHEET. PT LETHARGIC, ABLE TO WAKE WITH VERBAL STIMULI, BUT DOES NOT STAY AWAKE. A/O TO SELF, PLACE, AND SITUATION. LEVOPHED GTT INFUSING AT 2 MCG/MIN, MAP>65. VSS. PT IN AFIB. DENIES CHEST PAIN OR PRESSURE. WOUND VAC IN PLACE TO LLE, ALARMING AIR LEAK. ELKE RN ABLE TO REPLACE WOUND VAC DRESSING, WOUND VAC PLUGGED IN AND IN WORKING CONDITION. SCDs NOT IN PLACE DUE TO RT BKA, AND WOUNDS TO LLE. WILL UPDATE NEEDED.
[2025-01-02] VITALS (65 sets, daily range): BP systolic 84–123; BP diastolic 40–89
[2025-01-02] MEDS ORDERED: Piperacillin/Tazobactam Sod 3.375 GM in NS 100 ML IV SCH
[2025-01-02 03:26] LABS: BASOPHILS ABSOLUTE AUTO 0.03 K/mm3 (0.00-0.23); BASOPHILS PERCENT AUTO 0 % (0-2); EOSINOPHILS ABSOLUTE AUTO 0.01 K/mm3 (0.00-0.68); EOSINOPHILS PERCENT AUTO 0 % (0-6); Hematocrit 26.5 % (37.0-53.0); Hemoglobin 8.1 g/dL (13.5-17.5); IMMATURE GRAN PERCENT AUTO 1 % (0-1); LYMPHOCYTES ABSOLUTE AUTO 0.93 K/mm3 (0.84-5.20); LYMPHOCYTES PERCENT AUTO 7 % (21-46); MONOCYTES ABSOLUTE AUTO 0.69 K/mm3 (0.16-1.47); MONOCYTES PERCENT AUTO 5 % (4-13); Mean Corpuscular HGB 26.7 pg (26.0-34.0); Mean Corpuscular HGB Conc 30.6 g/dL (31.5-36.5); Mean Corpuscular Volume 88 fL (80-100); Mean Platelet Volume 10.5 fL (9.1-12.4); NEUTROPHILS ABSOLUTE AUTO 12.61 K/mm3 (1.96-9.15); NEUTROPHILS PERCENT AUTO 88 % (41-73); Platelet Count 179 K/mm3 (150-400); RDW Coefficient Variation 18.3 % (11.7-14.2); RDW Standard Deviation 58.4 fL (35.1-46.3); Red Blood Cell Count 3.03 M/mm3 (4.30-5.90); White Blood Cell Count 14.37 K/mm3 (4.00-11.30)
[2025-01-02 03:43] LABS: Albumin, Blood 2.4 g/dL (3.4-5.0); Albumin/Globulin Ratio 0.7 (0.8-1.8); Bilirubin, Total 0.5 mg/dL (0.1-1.0); Bun/Creatinine Ratio 33.6 (12.0-20.0); Calcium, Blood 8.1 mg/dL (8.5-10.1); Creatinine, Blood 0.89 mg/dL (0.60-1.20); Globulin, Blood 3.4 g/dL (2.2-4.0); Magnesium, Blood 1.8 mg/dL (1.6-2.4); Potassium, Blood 4.9 mmol/L (3.5-5.5); Total Protein, Blood 5.8 g/dL (6.4-8.2)
--- NOTE | 2025-01-02 05:22 | NUR ---
SHIFT SUMMARY: PT CONTINUES TO BE A/O TO SELF, PLACE, AND SITUATION. PT MORE ALERT THROUGHOUT THE NIGHT. SBP 110s, MAP>65. LEVOPHED AT 1 MCG/MIN. SPO2>95% ON 2L NC. PT HAD ONE INSTANCE OF INCONTINENCE, CONDOM CATH PLACED. NO OTHER CHANGES. CALL LIGHT IN REACH AND BED ALARM ON. WILL REPORT TO ONCOMING RN.
[2025-01-02] MEDS ORDERED: Omeprazole 20 MG CapCR PO SCH (06:00)
[2025-01-02] MEDS ORDERED: Aspirin 81 MG TabEC PO SCH (09:00)
[2025-01-02] MEDS ORDERED: Tamsulosin HCl 0.4 MG Cap PO SCH (09:00)
[2025-01-02] MEDS ORDERED: Gabapentin 300 MG Cap PO SCH (09:00)
[2025-01-02] MEDS ORDERED: Arginine/Glutamine/Calcium Hmb 1 Packet PO SCH (10:55)
[2025-01-02] MEDS ORDERED: Apixaban 5 MG Tab PO SCH (12:00)
--- NOTE | 2025-01-02 12:15 | NUR ---
Pt. is awake in bed when he welcomes my visit. Pt. is pleasant. Facilitated a lengthey life review where Pt. shared the impacto fo his years of service in the [employer]. Listened with interest and empathy. Pt. displayed evidence of trust and displayed that as he freely shared details of his life. Considered matters of anand and belief. Pt. verbalized gratitude for the spiritual care visit and welcomed this client renewal specialist to return.
[2025-01-02] MEDS ORDERED: Vancomycin HCL 1,500 MG in NS 250 ML IV SCH (14:00)
--- NOTE | 2025-01-02 18:48 | NUR ---
Summary. Pt much improved this shift, A&O, communicates well. Able to stand and pivot to bedside commode with prosthetic device on right leg and boot for wound on left foot. Wound vac in place on left heel, Dr. Griffiths rounded on patient this afternoon, recommended changing dressing every three days. VS stable throughout shift. See chart for details.
--- NOTE | 2025-01-02 22:07 | NUR ---
ASSUMPTION OF CARE ASSUMED CARE OF PATIENT AT 1900, BEDSIDE SHIFT REPORT RECEIVED FROM TRINY RN. PT RESTING IN BED ALERT AND ORIENTED X4. 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 FOLLOWS DIRECTION WHEN PROMTPED AND IS ABLE TO MAKE HIS NEEDS KNOWN. PT HAS RBKA AND MULTIPLE LEFT TOE AMPUTATIONS, PT PROSTHETIC IN THE ROOM. PT ALSO HAS WOUND VAC IN PLACE TO LEFT HEEL, DRESSING CLEAN AND INTACT WITH GOOD SUCTION. PT HAS BOOT IN ROOM FOR LEFT FOOT. PT ABLE TO STAND AND PIVOT TO BEDSIDE COMMODE WITH PROSTHETIC AND BOOT. PT DENIES PAIN AT TIME OF ASSESSMENT. HR 90-100'S SINUS, MAP >65. PT ON RA, OXYGEN SATURATION >95%. ABDOMEN SOFT, BOWEL TONES ACTIVE THROUGHOUT. PT HAS CONDOM CATH IN PLACE AND PREFERS TO KEEP IT ON AT THIS TIME, DRAINING YELLOW URINE TO GRAVITY. PIV IN PLACE TO LEFT FOREARM AND RIGHT UPPER ARM SL. BED IN LOWEST POSITION, CALL LIGHT WITHIN REACH, CARE CONTINUES.
[2025-01-03 03:14] VITALS: BP 140/67
[2025-01-03 03:53] LABS: BASOPHILS ABSOLUTE AUTO 0.02 K/mm3 (0.00-0.23); BASOPHILS PERCENT AUTO 0 % (0-2); EOSINOPHILS ABSOLUTE AUTO 0.01 K/mm3 (0.00-0.68); EOSINOPHILS PERCENT AUTO 0 % (0-6); Hematocrit 27.1 % (37.0-53.0); Hemoglobin 8.4 g/dL (13.5-17.5); IMMATURE GRAN PERCENT AUTO 1 % (0-1); LYMPHOCYTES ABSOLUTE AUTO 0.64 K/mm3 (0.84-5.20); LYMPHOCYTES PERCENT AUTO 5 % (21-46); MONOCYTES ABSOLUTE AUTO 0.59 K/mm3 (0.16-1.47); MONOCYTES PERCENT AUTO 5 % (4-13); Mean Corpuscular HGB 27.2 pg (26.0-34.0); Mean Corpuscular Volume 88 fL (80-100); Mean Platelet Volume 10.9 fL (9.1-12.4); NEUTROPHILS ABSOLUTE AUTO 10.84 K/mm3 (1.96-9.15); NEUTROPHILS PERCENT AUTO 89 % (41-73); Platelet Count 192 K/mm3 (150-400); RDW Coefficient Variation 18.3 % (11.7-14.2); RDW Standard Deviation 58.3 fL (35.1-46.3); Red Blood Cell Count 3.09 M/mm3 (4.30-5.90)
[2025-01-03 04:14] LABS: Bun/Creatinine Ratio 41.4 (12.0-20.0); Calcium, Blood 8.7 mg/dL (8.5-10.1); Creatinine, Blood 0.72 mg/dL (0.60-1.20)
--- NOTE | 2025-01-03 04:54 | NUR ---
SHIFT SUMMARY NO ACUTE CHANGES THIS SHIFT. PT CONTINUES TO REST IN BED, ORIENTED X4. PT ANSWERS QUESTIONS APPROPRIATELY, FOLLOWS DIRECTION WHEN PROMPTED AND IS ABLE TO MAKE HIS NEEDS KNOWN. PT STANDS AND PIVOTS FROM BED TO BEDSIDE COMMODE. PT HAS RBKA WITH MULTIPLE LEFT TOE AMPUTATIONS, WOUND VAC IN PLACE TO LEFT HEEL WITH GOOD SUCTION, DRESSING CLEAN, NO LEAKING NOTED. PT DENIES PAIN THIS SHIFT. HR 100-120'S, MAP >65, PT DENIES CP/PRESSURE THIS SHIFT. PT ON RA, OXYGEN SATURATION >92%. ABDOMEN SOFT, BOWEL TONES ACTIVE THROUGHOUT. CONDOM CATH IN PLACE PATENT DRAINING YELLOW URINE TO GRAVITY. PIV IN PLACE TO LFA AND OSCAR SL. BED IN LOWEST POSITION, CALL LIGHT WITHIN REACH, CARE CONTINUES.
[2025-01-03] MEDS ORDERED: Metoprolol Succinate 50 MG TABCR PO SCH ×2 (08:00→21:00)
--- NOTE | 2025-01-03 08:34 | NUR ---
AM NOTE... ASSUMED CARE OF PT AT 0700, PT IS A&Ox4. PT IS IN SINUS TACH 100'S-120'S BP IS STABLE. PT DENIES PAIN. HE IS ON RA WITH O2 SATS>96% L/S CLEAR IN THE UPPER LOBES DIM IN THE LOWER. PT DENEIS PAIN. WOUND VAC TO THE LEFT HEEL IS STABLE WITH GOOD SUCITION NO LEAKS. CONDOM CATH IN PLACE DRAINING TO GRAVITY. PLANS TO D/C TO THE [facility] TOMORROW.
[2025-01-03] MEDS ORDERED: TraMADol HCl 50 MG Tab PO PRN (09:00)
[2025-01-03] MEDS ORDERED: DULoxetine HCL 20 MG Cap DR PO SCH (09:00)
[2025-01-03] MEDS ORDERED: Furosemide 40 MG Tab PO SCH (09:00)
[2025-01-03 09:24] VITALS: BP 103/87
[2025-01-03 09:40] VITALS: BP 114/90
[2025-01-03 13:45] LABS: Vancomycin, Trough 13.8 ug/mL (5.0-10.0)
[2025-01-03] MEDS ORDERED: Midodrine 5 MG Tab PO PRN (13:50)
[2025-01-03 14:17] VITALS: BP 114/70
--- NOTE | 2025-01-03 15:46 | NUR ---
MET WITH PT IN HIS ROOM, HE IS ALERT, ORIENTED. HE TELLS THIS RN HE DOES WISH TO BE INTUBATED IF HE HAS A BREATHING EMERGENCY ALONG WITH MEDICATION MANAGEMENT AND SHOCK. NO CHEST COMPRESSIONS. PHYSICIAN NOTIFIED, KALA VIDAL COMPLETED.
[2025-01-03] MEDS ORDERED: Hydrocortisone Sod Succinate 100 MG Vial IV SCH (16:00)
[2025-01-03 16:41] VITALS: BP 125/74
--- NOTE | 2025-01-03 17:10 | NUR ---
SHIFT SUMMARY... NO ACUTE NEGATIVE CHANGES NOTED THIS SHIFT. PT'S VS HAVE BEEN STABLE. PT HAS BEEN UP TO THE [facility] TO HAVE A LARGE BM THIS SHIFT. PT'S CONDOM CATH IS PATENT AND PT VOIDED 950MLS OF CLEAR YELLOW URINE. [facility]
[2025-01-03 20:33] VITALS: BP 112/60
--- NOTE | 2025-01-03 20:55 | NUR ---
ASSUMED CARE AT 1900 PATIENT IS ALERT AND ORIENTED X4. SP02 94% ON RA, DENIES SOB. HR A.FIB, BP STABLE. DENIES CP/PRESSURE. CONDOM CATH DRAINING TO GRAVITY. WOUND VAC TO LEFT HEEL, WNL. CALL LIGHT IN REACH
[2025-01-04] VITALS: BP 98/64
[2025-01-04 03:31] LABS: BASOPHILS ABSOLUTE AUTO 0.03 K/mm3 (0.00-0.23); BASOPHILS PERCENT AUTO 0 % (0-2); EOSINOPHILS ABSOLUTE AUTO 0.09 K/mm3 (0.00-0.68); EOSINOPHILS PERCENT AUTO 1 % (0-6); Hemoglobin 8.9 g/dL (13.5-17.5); IMMATURE GRAN ABSOLUTE AUTO 0.11 K/mm3 (0.00-0.10); IMMATURE GRAN PERCENT AUTO 1 % (0-1); LYMPHOCYTES ABSOLUTE AUTO 0.86 K/mm3 (0.84-5.20); LYMPHOCYTES PERCENT AUTO 6 % (21-46); MONOCYTES ABSOLUTE AUTO 0.99 K/mm3 (0.16-1.47); MONOCYTES PERCENT AUTO 7 % (4-13); Mean Corpuscular HGB 26.8 pg (26.0-34.0); Mean Corpuscular HGB Conc 30.7 g/dL (31.5-36.5); Mean Corpuscular Volume 87 fL (80-100); Mean Platelet Volume 10.4 fL (9.1-12.4); NEUTROPHILS ABSOLUTE AUTO 11.32 K/mm3 (1.96-9.15); NEUTROPHILS PERCENT AUTO 85 % (41-73); Platelet Count 206 K/mm3 (150-400); RDW Coefficient Variation 18.3 % (11.7-14.2); RDW Standard Deviation 58.8 fL (35.1-46.3); Red Blood Cell Count 3.32 M/mm3 (4.30-5.90)
[2025-01-04 03:55] LABS: Bun/Creatinine Ratio 48.8 (12.0-20.0); Calcium, Blood 8.3 mg/dL (8.5-10.1); Creatinine, Blood 0.64 mg/dL (0.60-1.20); Potassium, Blood 3.4 mmol/L (3.5-5.5)
[2025-01-04 04:00] VITALS: BP 115/60
--- NOTE | 2025-01-04 06:29 | NUR ---
SHIFT SUMMARY PATIENT REMAINS ALERT AND ORIENTED X4. SP02 98% ON RA WHILE AWAKE, 2L NC WHEN SLEEPING. HR A.FIB 90s, BP STABLE. CONDOM CATH IN PLACE. REPOSITIONS SELF IN BED, ASSISTED NEEDED. WOUND VAC REMAINS IN PLACE. CALL LIGHT IN REACH
[2025-01-04 07:23] VITALS: BP 111/65
[2025-01-04] MEDS ORDERED: Potassium Chloride 20 MEQ TabCR PO ONE (09:00)
[2025-01-04] MEDS ORDERED: Vancomycin HCL 1,750 MG in NS 500 ML IV SCH (11:00)
[2025-01-04 11:18] VITALS: BP 138/115
[2025-01-04 15:07] VITALS: BP 116/67
--- NOTE | 2025-01-04 15:09 | NUR ---
WOUND VAC Dressing on wound vac (VAC machine is from the [facility] and came with the patient on admission) was no longer intact. It was removed, and replaced with our wound vac. Dressing was changed and wound bed visualized. IT is pink, without exudate and edges are pink. No foul odour, no bleeding. Black foam used and applied to usual wound vac settings. Pt states that it feels better now. States he only has intermittent stabbing 5/10 pains, otherwise no pain. He is sitting up in bed, watching television. VS are stable.
--- NOTE | 2025-01-04 15:45 | NUR ---
Pt c/o difficulty sleeping at night. Call to Dr. Silver and solo was changed to daily prednisone.
[2025-01-05 03:48] VITALS: BP 108/69
--- NOTE | 2025-01-05 06:17 | NUR ---
END OF SHIFT SUMMARY: THIS PT OVERALL HAD A GOOD NIGHT AND GOT A LOT OF REST THROUGHOUT THE NIGHT. HE WOULD OCCASIONALLY FORGET WHERE HE WAS AND BE CONFUSED UPON AWAKENING. AFTER REORIENTATION, THE PT WAS PLEASANT AND DIRECTABLE. OTHER THAN THAT THERE WERE NO ACUTE EVENTS OVER NIGHT.
[2025-01-05] MEDS ORDERED: PredniSONE 20 MG Tab PO SCH (09:00)
[2025-01-05 09:33] VITALS: BP 105/51
--- NOTE | 2025-01-05 11:24 | NUR ---
THIS RN ASSUMED CARE OF PT AT 0700. PT IS ALERT AND ORIENTED X4, PT CALLS OUT APPROPRIATELY. PT HEART RATE IN THE 80s, PT DENIES CHEST PAIN UPON ASSESSMENT MAP >65. PT ON ROOM AIR SATTING >92%, PT DENIES SHORTNESS OF BREATH. AT BEDSIDE, NO OTHER INTERVENTIONS AT THIS TIME. SAID PT WILL TRANSFER TO [place] ON TUESDAY. PT DOES HAVE A RIGHT BKA, WITH A WOUND VAC ON LEFT HEEL, DRESSING CHANGED TODAY AND CLEAN/DRY/INTACT. PLAN OF CARE CONTINUED.
[2025-01-05 17:00] VITALS: BP 123/70
--- NOTE | 2025-01-05 17:47 | NUR ---
PT SUMMARY NO ACUTE EVENTS TO REPORT THROUGHOUT THE DAY. PT ALERT AND ORIENTED X3-4, CAN GET CONFUSED ABOUT DATE BUT REDIRECTABLE. WOUND VAC WAS CHANGED TODAY. SAW PT BEDSIDE AND SAID [facility]. PT WILL BE TRANSFERING UP TO MEDICAL FLOOR ROOM 325, REPORT HAS BEEN CALLED AND PT WILL BE UP IN ROOM 325 SHORTLY.
--- NOTE | 2025-01-05 18:09 | NUR ---
pt arrived to 325 via bed in stable condition, report obtained from charge nurse. oriented to room layout and call sytem, call light in reach.
[2025-01-05 18:17] VITALS: BP 116/63
[2025-01-05 19:47] VITALS: BP 122/109
[2025-01-05 21:25] VITALS: BP 131/75
[2025-01-06] VITALS (7 sets, daily range): BP systolic 108–134; BP diastolic 50–80
--- NOTE | 2025-01-06 05:19 | NUR ---
SHIFT SUMMARY RESTED WELL OVERNIGHT. SKIN PALE,WARM, DRY. RESPIRATIONS REG, EVEN & NON- LABORED ON ROOM AIR. WOUND VAC ON AND FUNCTIONING PROPERLY TO LT HEEL WOUND, HAS A SCABBED OVER AREA ON TOP OF 4TH TOE WHICH IS OPEN TO AIR. HAS THREE WELL HEALED TOE AMPUTATIONS ON LT FOOT. RECEIVED IV ZOSYN WITH NO ADVERSE REACTIONS, VOIDED IN URINAL WITH ASSITANCE. RT BKA W/SKIN INTACT IGLESIAS. ASSISTED WITH REPOSITIONING X2. TOOK ALL MEDICATIONS WHOLE IN APPLESAUCE W/O DIFFICULTY. FLUIDS ENCOURAGED W/A HOWEVER SLEPT MOST OF ENEIDA NIGHT. CONTINUES TO HAVE FINE CRACKLES BILATERALLY , NO RESP DISTRESS. NO EDEMA. VSS. IS ON CONTACT PRECAUTIONS. CODE STATUS IS LIMITED.
--- NOTE | 2025-01-06 09:00 | NUR ---
Pt laying in bed awake a/ox4, pleasant and cooperative with care, slightly flat affect, lungs have fine crackles t/o, resp even and unlabored, on r/a, no cough noted, hrr, murmur noted, no edema noted to left foot, ppp unable to be palpated, piv x2, sites are clear and patent, btx4, abd flat soft nontender, voids with out diff, skin has wound vac to left heel, pale, maew, christal, call light in reach.
[2025-01-06] MEDS ORDERED: NS 250 ML IV PRN (09:05)
[2025-01-06 10:24] LABS: Creatinine, Blood 0.69 mg/dL (0.60-1.20); Vancomycin, Trough 19.1 ug/mL (5.0-10.0)
[2025-01-06] MEDS ORDERED: Vancomycin HCL 1,500 MG in NS 250 ML IV SCH (11:00)
--- NOTE | 2025-01-06 17:45 | NUR ---
no acute changes this shift. pt watching tv and napping throughout the day, have repositioned him throughout the day, no complaints or needs, call light in reach.
[2025-01-07 00:14] VITALS: BP 129/77
[2025-01-07 03:32] VITALS: BP 142/84
[2025-01-07 06:12] LABS: BASOPHILS ABSOLUTE AUTO 0.01 K/mm3 (0.00-0.23); BASOPHILS PERCENT AUTO 0 % (0-2); EOSINOPHILS ABSOLUTE AUTO 0.01 K/mm3 (0.00-0.68); EOSINOPHILS PERCENT AUTO 0 % (0-6); Hematocrit 27.6 % (37.0-53.0); Hemoglobin 8.6 g/dL (13.5-17.5); IMMATURE GRAN ABSOLUTE AUTO 0.07 K/mm3 (0.00-0.10); IMMATURE GRAN PERCENT AUTO 1 % (0-1); LYMPHOCYTES ABSOLUTE AUTO 1.09 K/mm3 (0.84-5.20); LYMPHOCYTES PERCENT AUTO 9 % (21-46); MONOCYTES ABSOLUTE AUTO 0.46 K/mm3 (0.16-1.47); MONOCYTES PERCENT AUTO 4 % (4-13); Mean Corpuscular HGB 26.6 pg (26.0-34.0); Mean Corpuscular HGB Conc 31.2 g/dL (31.5-36.5); Mean Corpuscular Volume 85 fL (80-100); Mean Platelet Volume 11.2 fL (9.1-12.4); NEUTROPHILS ABSOLUTE AUTO 9.96 K/mm3 (1.96-9.15); NEUTROPHILS PERCENT AUTO 86 % (41-73); Platelet Count 204 K/mm3 (150-400); RDW Coefficient Variation 18.1 % (11.7-14.2); Red Blood Cell Count 3.23 M/mm3 (4.30-5.90)
[2025-01-07 06:30] LABS: Bun/Creatinine Ratio 41.6 (12.0-20.0); Calcium, Blood 8.3 mg/dL (8.5-10.1); Creatinine, Blood 0.63 mg/dL (0.60-1.20); Potassium, Blood 3.8 mmol/L (3.5-5.5)
[2025-01-07 07:17] VITALS: BP 130/86
[2025-01-07 11:40] LABS: CORONAVIRUS COVID-19 AG Negative (NEGATIVE); INFLUENZA A AG Negative (NEGATIVE); INFLUENZA B AG Negative (NEGATIVE)
[2025-01-07] MEDS ORDERED: JUVEN PACKET1 EAC3 PO (13:04)
[2025-01-07] MEDS ORDERED: [UNRECOGNIZED DRUG - CODE] IV (13:06)
[2025-01-07] MEDS ORDERED: VANCOMYCIN HCL1 G1 IV (13:08)
--- NOTE | 2025-01-07 14:03 | NUR ---
[facility] DISCHARG[facility] TO THE [facility]. ALL VALUABLES RETURNED AND SENT WITH THE PT. ATTEMPT TO CALL REPORT TO [facility] RN TWICE, UNABLE TO REACH AT THIS TIME.
== END 2025-01-07 13:57 | DRG 871 ==
LOC: ER 17:00 → ICUE 18:57 → ERHOLD 18:57 → ICUE 20:21 → MEDS 01-05 18:10
PROVIDERS: Emergency Medicine; Internal Medicine; Nurse Practitioner Acute Care; ADMIT Internal Medicine
PROC: 3E03329 Introduction of Other Anti-infective into Peripheral Vein, Percutaneous Approach (ICD-10-PCS; principal; 2025-01-01)
PROC: 3E033XZ Introduction of Vasopressor into Peripheral Vein, Percutaneous Approach (ICD-10-PCS; 2025-01-01)
DX: A41.9 Sepsis, unspecified organism (principal); J18.9 Pneumonia, unspecified organism; J96.01 Acute respiratory failure with hypoxia; R65.21 Severe sepsis with septic shock; J44.0 Chronic obstructive pulmonary disease with (acute) lower respiratory infection; I50.32 Chronic diastolic (congestive) heart failure; L97.429 Non-pressure chronic ulcer of left heel and midfoot with unspecified severity; N40.0 Benign prostatic hyperplasia without lower urinary tract symptoms; M35.3 Polymyalgia rheumatica; Z66 Do not resuscitate; L97.529 Non-pressure chronic ulcer of other part of left foot with unspecified severity; E11.621 Type 2 diabetes mellitus with foot ulcer; E11.51 Type 2 diabetes mellitus with diabetic peripheral angiopathy without gangrene; E11.42 Type 2 diabetes mellitus with diabetic polyneuropathy; I48.0 Paroxysmal atrial fibrillation; I11.0 Hypertensive heart disease with heart failure; Z86.14 Personal history of Methicillin resistant Staphylococcus aureus infection; M10.9 Gout, unspecified; K21.9 Gastro-esophageal reflux disease without esophagitis; Z88.8 Allergy status to other drugs, medicaments and biological substances; Z91.041 Radiographic dye allergy status; Z88.5 Allergy status to narcotic agent; Z91.013 Allergy to seafood; Z79.01 Long term (current) use of anticoagulants; Z99.81 Dependence on supplemental oxygen; Z87.891 Personal history of nicotine dependence; Z89.412 Acquired absence of left great toe; Z89.422 Acquired absence of other left toe(s); Z89.511 Acquired absence of right leg below knee
CPT/HCPCS: 0241U; 36415; 71045; 73630; 80048; 80053; 80202; 82565; 83605; 83735; 83880; 84100; 84484; 85025; 87040; 87428-QW; 92526; 92610; 93005; 93010; 94640; 94664; 94760; 94762; 96365; 96368; 99291-25; A9270; C1751; J1650; J1720; J2543; J3370; J7030; J7040; J7050; J7060; J7120; J7512

== ENCOUNTER 2025-03-14 00:59 | Day surgery (SDC) | payer OTHER ==
[~2025-03-14 00:59] MED LIST changes: +GABA800 PO; +GUAI600T33 PO; +STIOLTO RESPIMAT4 G1 INH; +VANCOMYCIN HCL1 G1 IV; +[UNRECOGNIZED DRUG - CODE] IV
== END 2025-03-14 17:00 | disposition home or self-care (01) ==
LOC: ATC 00:59
DX: M86.9 Osteomyelitis, unspecified (principal); Z79.01 Long term (current) use of anticoagulants; Z79.84 Long term (current) use of oral hypoglycemic drugs; Z79.899 Other long term (current) drug therapy; Z88.5 Allergy status to narcotic agent; Z88.8 Allergy status to other drugs, medicaments and biological substances; Z91.013 Allergy to seafood; Z91.041 Radiographic dye allergy status
CPT/HCPCS: 36569; 71045; C1751

== ENCOUNTER 2025-03-22 10:18 | Inpatient (IN) | payer OTHER ==
[~2025-03-22] VITALS: Ht 180.3 cm; Wt 84.4 kg
[2025-03-22] MEDS ORDERED: GUAI600T33 PO (10:54)
[2025-03-22] MEDS ORDERED: LACT10SY PO (10:55)
[2025-03-22] MEDS ORDERED: Calcium Carbon500 MG PO (10:56)
[2025-03-22] MEDS ORDERED: MELA3 PO (10:56)
[2025-03-22] MEDS ORDERED: METF500 PO (10:57)
[2025-03-22] MEDS ORDERED: SIME80CH PO (10:57)
[2025-03-22] MEDS ORDERED: OMEP20ER PO (10:58)
[2025-03-22] MEDS ORDERED: PREG100 PO (11:02)
[2025-03-22] MEDS ORDERED: SENNA LAXATIVE8.6 MG PO (11:02)
[2025-03-22 11:05] LABS: BASOPHILS ABSOLUTE AUTO 0.06 K/mm3 (0.00-0.23); BASOPHILS PERCENT AUTO 0 % (0-2); EOSINOPHILS PERCENT AUTO 1 % (0-6); Hematocrit 31.3 % (37.0-53.0); Hemoglobin 9.7 g/dL (13.5-17.5); IMMATURE GRAN ABSOLUTE AUTO 0.09 K/mm3 (0.00-0.10); IMMATURE GRAN PERCENT AUTO 1 % (0-1); LYMPHOCYTES ABSOLUTE AUTO 1.41 K/mm3 (0.84-5.20); LYMPHOCYTES PERCENT AUTO 10 % (21-46); MONOCYTES ABSOLUTE AUTO 1.34 K/mm3 (0.16-1.47); MONOCYTES PERCENT AUTO 10 % (4-13); Mean Corpuscular HGB 27.8 pg (26.0-34.0); Mean Corpuscular Volume 90 fL (80-100); Mean Platelet Volume 11.7 fL (9.1-12.4); NEUTROPHILS ABSOLUTE AUTO 10.95 K/mm3 (1.96-9.15); NEUTROPHILS PERCENT AUTO 78 % (41-73); Platelet Count 170 K/mm3 (150-400); RDW Coefficient Variation 17.6 % (11.7-14.2); RDW Standard Deviation 57.1 fL (35.1-46.3); Red Blood Cell Count 3.49 M/mm3 (4.30-5.90); White Blood Cell Count 14.05 K/mm3 (4.00-11.30)
[2025-03-22 11:23] LABS: Albumin, Blood 3.1 g/dL (3.4-5.0); Albumin/Globulin Ratio 0.7 (0.8-1.8); Bilirubin, Total 0.7 mg/dL (0.1-1.0); Bun/Creatinine Ratio 37.9 (12.0-20.0); Calcium, Blood 8.9 mg/dL (8.5-10.1); Creatinine, Blood 0.58 mg/dL (0.60-1.20); Globulin, Blood 4.2 g/dL (2.2-4.0); Magnesium, Blood 1.5 mg/dL (1.6-2.4); Potassium, Blood 5.1 mmol/L (3.5-5.5); Total Protein, Blood 7.3 g/dL (6.4-8.2)
[2025-03-22] MEDS ORDERED: NS 1,000 ML IV SCH (11:45)
[2025-03-22] MEDS ORDERED: Azithromycin 500 MG in NS 250 ML IV ONE (11:50)
[2025-03-22] MEDS ORDERED: CefTRIAXone Sodium 1,000 MG in NS 50 ML IV ONE (11:50)
[2025-03-22 13:02] VITALS: BP 111/97
[2025-03-22] MEDS ORDERED: Vancomycin HCL 1,750 MG in NS 500 ML IV ONE (13:45)
--- NOTE | 2025-03-22 13:55 | NUR ---
ADMISSION: PT ARRIVED TO PCU 6 @1250 VIA GURNEY. PT ALERT AND ORIENTED X4, ABLE TO FOLLOW COMMANDS AND MAKE NEEDS KNOWN. STRENGTH WEAK, EQUAL BILATERALLY. BP STABLE. HR AFIB 90'S. AFEBRILE. SPO2 >96% ON ROOM AIR. LUNG SOUNDS WITH CRACKLES THROUGHOUT. RESPIRTAIONS EVEN AND UNLABORED. PT ADMITTED WITH ASPIRTION PNEUMONIA. ABD WITH MILD DISTENTION, BOWEL SOUNDS +. NON TENDER. PT WITH R. BKA, WOUND VAC TO LEFT HEEL. PT RESIDING AT [place] FOR WOUND CARE. PT CONT OF URINE, ABLE TO USE URINAL AT BEDSIDE. BED ALARM ON FOR SAFETY.
[2025-03-22] MEDS ORDERED: Polyethylene Glycol 3350 17 gm PO PRN (14:20)
[2025-03-22] MEDS ORDERED: Gabapentin 300 MG Cap PO SCH ×2 (14:30→21:00)
[2025-03-22] MEDS ORDERED: Acetaminophen 500 MG Tab PO PRN (14:45)
[2025-03-22] MEDS ORDERED: Albuterol 2.5 MG/3 ML VIAL INH PRN (14:50)
[2025-03-22] MEDS ORDERED: Metoprolol Succinate 25 MG TABCR PO SCH (15:00)
[2025-03-22] MEDS ORDERED: Tiotropium Bromide 2.5 MCG/ACT MIST INHAL (10 ACT/4 GM) INH SCH (15:00)
[2025-03-22] MEDS ORDERED: Atorvastatin 40 MG Tab PO SCH (15:00)
[2025-03-22] MEDS ORDERED: Ipratropium/Albuterol SulF 2.5-0.5MG/3 ML Amp INH SCH (15:20)
[2025-03-22] MEDS ORDERED: Vancomycin HCL 1,000 MG in NS 250 ML IV SCH (16:00)
--- NOTE | 2025-03-22 16:11 | NUR ---
UPDATE: THIS RN TO ATTEMPT DRESSING CHANGE FOR PICC IN [facility]. PICC WITH 29CM OF EXPOSED CATHETER. MD NOTIFIED, CHEST XRAY OBTAINED. PICC LINE NOT IN CORRECT PLACEMENT. ORDERS RECEIVED TO REMOVE PICC LINE AND INSERT NEW LINE.
[2025-03-22] MEDS ORDERED: Calcium Carbonate 500 MG Tab Chew PO SCH (17:00)
[2025-03-22] MEDS ORDERED: PredniSONE 5 MG Tab PO SCH (17:00)
--- NOTE | 2025-03-22 17:29 | NUR ---
SHIFT SUMMARY: PT WITH NO ACUTE CHANGES THIS EVENING. ABLE TO WORK WITH PHYSICAL THERAPY THIS EVENING, TOLERATED WELL. L HEEL DRESSING CHANGED. SEE PHOTOS IN CHART. CALLED AND UPDATED ON PT PLAN OF CARE. BED IN LOW, CALL LIGHT IN REACH, WILL REPORT TO ONCOMING RN.
[2025-03-22] MEDS ORDERED: Insulin Human Lispro 100 Units/ML 3ML Syringe SC SCH (17:30)
[2025-03-22] MEDS ORDERED: Simethicone 80 MG Chew PO SCH (18:00)
[2025-03-22 20:57] VITALS: BP 117/52
[2025-03-22] MEDS ORDERED: Melatonin 3 MG Tab PO SCH (21:00)
[2025-03-22] MEDS ORDERED: Apixaban 5 MG Tab PO SCH (21:00)
[2025-03-22] MEDS ORDERED: Lactobacil 2-S.Thermo-Bifido 1 1 Cap PO SCH (21:00)
[2025-03-22 23:23] VITALS: BP 108/43
[2025-03-23 04:35] VITALS: BP 109/53
[2025-03-23 05:12] LABS: BASOPHILS ABSOLUTE AUTO 0.04 K/mm3 (0.00-0.23); BASOPHILS PERCENT AUTO 0 % (0-2); EOSINOPHILS ABSOLUTE AUTO 0.28 K/mm3 (0.00-0.68); EOSINOPHILS PERCENT AUTO 3 % (0-6); Hematocrit 28.8 % (37.0-53.0); Hemoglobin 8.8 g/dL (13.5-17.5); IMMATURE GRAN ABSOLUTE AUTO 0.08 K/mm3 (0.00-0.10); IMMATURE GRAN PERCENT AUTO 1 % (0-1); LYMPHOCYTES ABSOLUTE AUTO 1.35 K/mm3 (0.84-5.20); LYMPHOCYTES PERCENT AUTO 15 % (21-46); MONOCYTES ABSOLUTE AUTO 0.96 K/mm3 (0.16-1.47); MONOCYTES PERCENT AUTO 11 % (4-13); Mean Corpuscular HGB 27.2 pg (26.0-34.0); Mean Corpuscular HGB Conc 30.6 g/dL (31.5-36.5); Mean Corpuscular Volume 89 fL (80-100); Mean Platelet Volume 11.4 fL (9.1-12.4); NEUTROPHILS ABSOLUTE AUTO 6.35 K/mm3 (1.96-9.15); NEUTROPHILS PERCENT AUTO 70 % (41-73); Platelet Count 148 K/mm3 (150-400); RDW Coefficient Variation 17.8 % (11.7-14.2); RDW Standard Deviation 57.8 fL (35.1-46.3); Red Blood Cell Count 3.23 M/mm3 (4.30-5.90); White Blood Cell Count 9.06 K/mm3 (4.00-11.30)
[2025-03-23 05:38] LABS: Albumin, Blood 2.8 g/dL (3.4-5.0); Albumin/Globulin Ratio 0.8 (0.8-1.8); Bilirubin, Total 0.5 mg/dL (0.1-1.0); Bun/Creatinine Ratio 35.8 (12.0-20.0); Calcium, Blood 9.1 mg/dL (8.5-10.1); Creatinine, Blood 0.64 mg/dL (0.60-1.20); Globulin, Blood 3.7 g/dL (2.2-4.0); Magnesium, Blood 1.6 mg/dL (1.6-2.4); Potassium, Blood 4.8 mmol/L (3.5-5.5); Total Protein, Blood 6.5 g/dL (6.4-8.2)
[2025-03-23] MEDS ORDERED: Omeprazole 20 MG CapCR PO SCH (06:00)
[2025-03-23 07:54] VITALS: BP 94/49
[2025-03-23] MEDS ORDERED: Tamsulosin HCl 0.4 MG Cap PO SCH (09:00)
[2025-03-23] MEDS ORDERED: DULoxetine HCL 60 MG Capsule DR PO SCH (09:00)
[2025-03-23] MEDS ORDERED: NS 1,000 ML IV SCH (09:00)
[2025-03-23 09:38] VITALS: BP 120/64
[2025-03-23] MEDS ORDERED: Azithromycin 500 MG in NS 250 ML IV SCH (12:00)
[2025-03-23] MEDS ORDERED: CefTRIAXone Sodium 1,000 MG in NS 100 ML IV SCH (12:00)
[2025-03-23 15:18] VITALS: BP 100/49
[2025-03-23 15:29] LABS: Vancomycin, Trough 16.5 ug/mL (5.0-10.0)
--- NOTE | 2025-03-23 16:21 | NUR ---
SHIFT SUMMARY PT AOX4, 1 ASSIST WITH THE FWW TO THE BSC. WOUND VAC IN PLACE AND PATENT. PT USES URINAL. NO EVENTS PER TELE. BARIUM SWALLOW TO BE DONE ON TUESDAY, 03/25. PROVIDER AWARE. REPOSITIONED THROUGHOUT THE SHIFT, PT ALSO REPOSITIONS SELF. NO ACUTE COMPLAINTS. PICC IN OSCAR, DRESSING CHANGED TODAY. THE PICC WAS PLACED YESTERDAY BUT BLOOD OBSERVED ON THE DRESSING AT THE START OF THE SHIFT. CHARGE NURSE ASSESSED AND SAID IT WAS PATENT, SINCE THE DRESSING CHANGE, THE PICC DRAWS AND FLUSHES WITH EASE. CALL LIGHT WITHIN REACH, BED LOCKED AND IN THE LOWEST POSITION. WILL REPORT TO ONCOMING NURSE.
[2025-03-23 19:55] VITALS: BP 112/70
[2025-03-23] MEDS ORDERED: GuaiFENesin 600 MG TabCR PO SCH (21:00)
[2025-03-24] VITALS: BP 112/70
[2025-03-24 04:50] VITALS: BP 112/70
--- NOTE | 2025-03-24 06:01 | NUR ---
PT SLEPT WELL THIS SHIFT, COUGH MEDICATION WAS VERY HELPFUL, ALERT AND ORIENTED ABLE TO MAKE NEEDS KNOWN, HR WNL, B/P STABEL, PT IS ON ROOM AIR COURSE THROUGH OUT BOTH LUNGS MOIST DEEP COUGH, PT IS CHAIR BOUND AT BASELINE AND IS VERY WEAK AND DECONDITIONED, PT HAS BOUTS OF O2 DESAT BUT RECOVERS WELL PT STATED THAT THIS IS WHAT HAS BEEN HAPPENING TO HIM FOR YEARS, HIS O2 DROPS MOSTLY IN THE EARLY AM, PT CAN NOT TAKE BINDING NICKER MEDICATIONS R/T ASPIRATION RISK HE IS TO SLEEPY AND IT IS NOT SAFE AT THIS TIME OF MORNING, WILL MARK TO DAY RN TO SEE IF MED CAN BE PUSHED BACK AN HOUR OR TWO WHEN MD ROUNDS PT HAS CALL LIGHT AND FREQUENTLY USED ITEMS WITH IN REACH
[2025-03-24 06:54] LABS: BASOPHILS ABSOLUTE AUTO 0.02 K/mm3 (0.00-0.23); BASOPHILS PERCENT AUTO 0 % (0-2); EOSINOPHILS ABSOLUTE AUTO 0.28 K/mm3 (0.00-0.68); EOSINOPHILS PERCENT AUTO 4 % (0-6); Hematocrit 27.1 % (37.0-53.0); Hemoglobin 8.6 g/dL (13.5-17.5); IMMATURE GRAN ABSOLUTE AUTO 0.05 K/mm3 (0.00-0.10); IMMATURE GRAN PERCENT AUTO 1 % (0-1); LYMPHOCYTES ABSOLUTE AUTO 1.11 K/mm3 (0.84-5.20); LYMPHOCYTES PERCENT AUTO 16 % (21-46); MONOCYTES ABSOLUTE AUTO 0.87 K/mm3 (0.16-1.47); MONOCYTES PERCENT AUTO 12 % (4-13); Mean Corpuscular HGB 27.7 pg (26.0-34.0); Mean Corpuscular HGB Conc 31.7 g/dL (31.5-36.5); Mean Corpuscular Volume 87 fL (80-100); Mean Platelet Volume 11.2 fL (9.1-12.4); NEUTROPHILS ABSOLUTE AUTO 4.82 K/mm3 (1.96-9.15); NEUTROPHILS PERCENT AUTO 67 % (41-73); Platelet Count 154 K/mm3 (150-400); RDW Coefficient Variation 17.9 % (11.7-14.2); RDW Standard Deviation 56.2 fL (35.1-46.3); Red Blood Cell Count 3.11 M/mm3 (4.30-5.90); White Blood Cell Count 7.15 K/mm3 (4.00-11.30)
[2025-03-24 07:10] LABS: Bun/Creatinine Ratio 31.7 (12.0-20.0); Calcium, Blood 8.8 mg/dL (8.5-10.1); Creatinine, Blood 0.6 mg/dL (0.60-1.20); Potassium, Blood 3.6 mmol/L (3.5-5.5)
[2025-03-24 07:42] VITALS: BP 113/64
[2025-03-24 15:38] VITALS: BP 97/69
--- NOTE | 2025-03-24 15:46 | NUR ---
TRANSFER NOTE PT TRANSFERRED TO ROOM 356, REPORT GIVEN TO KELSEY CORBETT. NO CHANGES PRIOR TO TRANSFER. PERSONAL BELONGINGS RETURNED TO THE PT PRIOR TO TRANSFER.
--- NOTE | 2025-03-24 16:31 | NUR ---
PT WAS PCU TRANSFER. PT HAS NO QUESTIONS OR CONCERNS ATR THIS TIME. PT HAS NO C/O PAIN SOB OR CHEST PAIN. PT REMAINS ON CONTACT PRECAUTIONS
[2025-03-24 19:40] VITALS: BP 101/58
[2025-03-24] MEDS ORDERED: Arginine/Glutamine/Calcium Hmb 1 Packet PO SCH (21:00)
[2025-03-24 23:49] VITALS: BP 113/56
[2025-03-25 04:19] VITALS: BP 142/64
--- NOTE | 2025-03-25 04:40 | NUR ---
SHIFT SUMMARY: PT AOX4, CALLS APPROPRIATELY AND IS ABLE TO MAKE NEEDS KNOWN. SLEEP STUDY PERFORMED OVERNIGHT. TOLERATING MEDICATIONS AND DIET WELL, REFUSED THE SHANITA. HAVING PRODUCTIVE COUGH THROUGH THE NIGHT, STATES TO BE FEELING AND BREATHING BETTER. PT SATTING 92+ ON 2L WHICH IS THEIR BASELINE. WOUND VAC AND DRESSING CDI. NO ACUTE OVERNIGHT EVENTS. PT IN BED SLEEPING, BED IN LOWEST POSITION, CALL LIGHT IN REACH. CONTINUING CARE.
[2025-03-25 05:16] LABS: BASOPHILS ABSOLUTE AUTO 0.03 K/mm3 (0.00-0.23); BASOPHILS PERCENT AUTO 0 % (0-2); EOSINOPHILS ABSOLUTE AUTO 0.29 K/mm3 (0.00-0.68); EOSINOPHILS PERCENT AUTO 4 % (0-6); Hematocrit 28.1 % (37.0-53.0); Hemoglobin 8.8 g/dL (13.5-17.5); IMMATURE GRAN ABSOLUTE AUTO 0.04 K/mm3 (0.00-0.10); IMMATURE GRAN PERCENT AUTO 1 % (0-1); LYMPHOCYTES ABSOLUTE AUTO 1.34 K/mm3 (0.84-5.20); LYMPHOCYTES PERCENT AUTO 20 % (21-46); MONOCYTES ABSOLUTE AUTO 0.87 K/mm3 (0.16-1.47); MONOCYTES PERCENT AUTO 13 % (4-13); Mean Corpuscular HGB 27.2 pg (26.0-34.0); Mean Corpuscular HGB Conc 31.3 g/dL (31.5-36.5); Mean Corpuscular Volume 87 fL (80-100); Mean Platelet Volume 11.2 fL (9.1-12.4); NEUTROPHILS ABSOLUTE AUTO 4.29 K/mm3 (1.96-9.15); NEUTROPHILS PERCENT AUTO 63 % (41-73); Platelet Count 153 K/mm3 (150-400); RDW Coefficient Variation 17.5 % (11.7-14.2); RDW Standard Deviation 55.8 fL (35.1-46.3); Red Blood Cell Count 3.23 M/mm3 (4.30-5.90); White Blood Cell Count 6.86 K/mm3 (4.00-11.30)
[2025-03-25 05:38] LABS: Bun/Creatinine Ratio 31.5 (12.0-20.0); Calcium, Blood 9.4 mg/dL (8.5-10.1); Creatinine, Blood 0.51 mg/dL (0.60-1.20); Potassium, Blood 3.8 mmol/L (3.5-5.5)
[2025-03-25 07:36] VITALS: BP 109/65
[2025-03-25 15:22] VITALS: BP 115/73
--- NOTE | 2025-03-25 18:39 | NUR ---
SHIFT SUMMARY PT AOX4, COOPERATIVE, ABLE TO MAKE NEEDS KNONW. PT HAS R BKA, AND WOUND VAC ON LEFT FOOT; DID NOT PERFORM WOUND CHANGE THIS SHIFT, WILL TELL IN REPORT. PT HAS BEEN ON ROOM AIR DURING SHIFT, SATTING >90%. TOLERATING PO AND IV MEDICATION. SHOULD BE DC TO [facility] TOM[facility]ROW. BED IN LOWST POSITION, CALL JOANNE OLIVA.
[2025-03-25 19:56] VITALS: BP 117/80
[2025-03-26 00:05] VITALS: BP 112/57
--- NOTE | 2025-03-26 00:21 | NUR ---
NURSING NOTE: WOUND VAC DRESSING CHANGE COMPLETED. PT TOLERATED WELL.
[2025-03-26 02:32] VITALS: BP 110/85
--- NOTE | 2025-03-26 04:41 | NUR ---
SHIFT SUMMARY: PT AOX4, 1PA CALLS APPROPRIATELY ABLE TO MAKE NEEDS KNOWN. WOUND VAC DRESSING CHANGED. PT TOLERATED PROCEDURE WELL. WAS ABLE TO SLEEP BETTER LAST NIGHT, DECLINES ANY SOB OR CP. PT SATTING WELL ON RA. PT TOLERATING MEDICATIONS WELL AND EAGER TO GO HOME. COMPLIANT IN CARE. NO ACUTE EVENTS OVERNIGHT. ENDORSES A DRY COUGH BUT DECLINED MEDICATIONS. PT IN BED RESTING, BED IN LOWEST POSITION, CALL LIGHT IN REACH. CONTINUING CARE.
[2025-03-26 07:58] VITALS: BP 112/61
[2025-03-26] MEDS ORDERED: Cefpodoxime Proxetil 200 MG Tab PO SCH (08:00)
[2025-03-26 10:15] LABS: CORONAVIRUS COVID-19 AG Negative (NEGATIVE)
[2025-03-26] MEDS ORDERED: CEFP200 PO (11:58)
--- NOTE | 2025-03-26 12:55 | NUR ---
DC PT AOX4, COOPERATIVE, ABLE TO MAKE NEEDS KNOWN. [facility] TO [facility]. REPORT GIVEN TO "ERIC GALARZA RN" OF [place]. PT BELONGINGS WENT WITH TRANSPORT. PT WOUND VAC WHEN WITH TRANSPORT TOO. CLAMPTED WOUND VAC FOR TRANPORT. TRANSFERRED TO VIA 1 PERSON ASSIST USING FWW.
== END 2025-03-26 13:29 | DRG 871 ==
LOC: ER 10:18 → ERHOLD 12:12 → MEDS 12:12 → PCU 12:48 → MEDS 03-24 15:37
PROVIDERS: Internal Medicine; Student in an Organized Health Care Education/Training Program; ADMIT Hospitalist
PROC: 3E03329 Introduction of Other Anti-infective into Peripheral Vein, Percutaneous Approach (ICD-10-PCS; principal; 2025-03-22)
PROC: 02H633Z Insertion of Infusion Device into Right Atrium, Percutaneous Approach (ICD-10-PCS; 2025-03-22)
DX: A41.9 Sepsis, unspecified organism (principal); J18.9 Pneumonia, unspecified organism; J96.01 Acute respiratory failure with hypoxia; J69.0 Pneumonitis due to inhalation of food and vomit; I50.42 Chronic combined systolic (congestive) and diastolic (congestive) heart failure; J44.0 Chronic obstructive pulmonary disease with (acute) lower respiratory infection; I48.0 Paroxysmal atrial fibrillation; I11.0 Hypertensive heart disease with heart failure; E11.51 Type 2 diabetes mellitus with diabetic peripheral angiopathy without gangrene; E78.00 Pure hypercholesterolemia, unspecified; N40.0 Benign prostatic hyperplasia without lower urinary tract symptoms; M10.9 Gout, unspecified; D63.8 Anemia in other chronic diseases classified elsewhere; M19.90 Unspecified osteoarthritis, unspecified site; E11.42 Type 2 diabetes mellitus with diabetic polyneuropathy; I45.10 Unspecified right bundle-branch block; M06.9 Rheumatoid arthritis, unspecified; E11.65 Type 2 diabetes mellitus with hyperglycemia; R65.20 Severe sepsis without septic shock; G89.29 Other chronic pain; M35.3 Polymyalgia rheumatica; E83.42 Hypomagnesemia; K21.9 Gastro-esophageal reflux disease without esophagitis; E11.621 Type 2 diabetes mellitus with foot ulcer; R74.02 Elevation of levels of lactic acid dehydrogenase [LDH]; L97.529 Non-pressure chronic ulcer of other part of left foot with unspecified severity; S91.302A Unspecified open wound, left foot, initial encounter; Z79.52 Long term (current) use of systemic steroids; Z88.5 Allergy status to narcotic agent; Z88.8 Allergy status to other drugs, medicaments and biological substances; Z91.013 Allergy to seafood; Z91.041 Radiographic dye allergy status; Z79.51 Long term (current) use of inhaled steroids; Z79.899 Other long term (current) drug therapy; Z79.82 Long term (current) use of aspirin; Z79.2 Long term (current) use of antibiotics; Z79.84 Long term (current) use of oral hypoglycemic drugs; Z79.01 Long term (current) use of anticoagulants; Z89.511 Acquired absence of right leg below knee; Z89.412 Acquired absence of left great toe; Z87.891 Personal history of nicotine dependence; Z86.14 Personal history of Methicillin resistant Staphylococcus aureus infection; X58.XXXA Exposure to other specified factors, initial encounter
CPT/HCPCS: 36415; 36569; 71045; 71046; 74230; 80048; 80053; 80202; 82947; 83605; 83735; 85025; 87040; 87426-QW; 92610; 92611; 93005; 93010; 94640; 94664; 94760; 94762; 96365; 96368; 97110; 97162; 97530; 99285-25; A9270; C1751; J0456; J0696; J3370; J7030; J7050; J7512

== ENCOUNTER 2025-04-11 11:59 | Inpatient (IN) | payer OTHER ==
[~2025-04-11] VITALS: Ht 180.3 cm; Wt 78.8 kg
[~2025-04-11 11:59] MED LIST changes: +CEFP200 PO; +LACT10SY PO; +PREG100 PO
[2025-04-11 12:27] LABS: BASOPHILS ABSOLUTE AUTO 0.04 K/mm3 (0.00-0.23); BASOPHILS PERCENT AUTO 0 % (0-2); EOSINOPHILS PERCENT AUTO 1 % (0-6); Hematocrit 26.7 % (37.0-53.0); Hemoglobin 8.2 g/dL (13.5-17.5); IMMATURE GRAN ABSOLUTE AUTO 0.07 K/mm3 (0.00-0.10); IMMATURE GRAN PERCENT AUTO 1 % (0-1); LYMPHOCYTES PERCENT AUTO 5 % (21-46); MONOCYTES ABSOLUTE AUTO 0.85 K/mm3 (0.16-1.47); MONOCYTES PERCENT AUTO 6 % (4-13); Mean Corpuscular HGB 26.8 pg (26.0-34.0); Mean Corpuscular HGB Conc 30.7 g/dL (31.5-36.5); Mean Corpuscular Volume 87 fL (80-100); Mean Platelet Volume 11.4 fL (9.1-12.4); NEUTROPHILS ABSOLUTE AUTO 11.48 K/mm3 (1.96-9.15); NEUTROPHILS PERCENT AUTO 87 % (41-73); Platelet Count 184 K/mm3 (150-400); RDW Coefficient Variation 17.5 % (11.7-14.2); RDW Standard Deviation 56.2 fL (35.1-46.3); Red Blood Cell Count 3.06 M/mm3 (4.30-5.90); White Blood Cell Count 13.24 K/mm3 (4.00-11.30)
[2025-04-11] MEDS ORDERED: Doxycycline Hyclate 100 MG in Dextrose 5% 250 ML IV ONE (12:50)
[2025-04-11] MEDS ORDERED: Cefepime HCl 2,000 MG in NS 100 ML IV ONE (12:50)
[2025-04-11 12:51] LABS: pH Blood Venous 7.36 (7.34-7.37)
[2025-04-11 12:52] LABS: Base Excess Venous 3.8 mmol/L; Bicarbonate Venous 27.2 mmol/L (24.0-30.0); PCO2 Venous 52 mmHg (38-42)
[2025-04-11 12:57] LABS: Albumin, Blood 2.8 g/dL (3.4-5.0); Albumin/Globulin Ratio 0.8 (0.8-1.8); Bilirubin, Total 0.5 mg/dL (0.1-1.0); Bun/Creatinine Ratio 38.1 (12.0-20.0); Calcium, Blood 8.6 mg/dL (8.5-10.1); Creatinine, Blood 0.79 mg/dL (0.60-1.20); Globulin, Blood 3.7 g/dL (2.2-4.0); Potassium, Blood 4.4 mmol/L (3.5-5.5); Total Protein, Blood 6.5 g/dL (6.4-8.2)
[2025-04-11] MEDS ORDERED: MethylPREDNISolone Sod Succ 125 MG Vial IV ONE (13:30)
[2025-04-11] MEDS ORDERED: DiphenhydrAMINE HCl 50 MG/ML 1ML Vial IV ONE (13:30)
[2025-04-11] MEDS ORDERED: NS 1,000 ML IV SCH (14:35)
[2025-04-11] MEDS ORDERED: Cosyntropin 0.25 MG / ML 1ML Vial IV ONE (15:25)
[2025-04-11] MEDS ORDERED: Acetaminophen 325 MG TABLET PO PRN (15:25)
[2025-04-11 21:19] VITALS: BP 138/91
[2025-04-11] MEDS ORDERED: Piperacillin/Tazobactam Sod 3.375 GM in NS 100 ML IV SCH (22:00)
[2025-04-11] MEDS ORDERED: NS 250 ML IV PRN (22:30)
[2025-04-12] VITALS (7 sets, daily range): BP systolic 102–121; BP diastolic 59–92
[2025-04-12 06:08] LABS: Hematocrit 26.3 % (37.0-53.0); Hemoglobin 8.2 g/dL (13.5-17.5); Mean Corpuscular HGB 27.2 pg (26.0-34.0); Mean Corpuscular HGB Conc 31.2 g/dL (31.5-36.5); Mean Corpuscular Volume 87 fL (80-100); Mean Platelet Volume 11.1 fL (9.1-12.4); Platelet Count 186 K/mm3 (150-400); RDW Coefficient Variation 17.2 % (11.7-14.2); RDW Standard Deviation 55.4 fL (35.1-46.3); Red Blood Cell Count 3.01 M/mm3 (4.30-5.90)
[2025-04-12 06:21] LABS: Albumin, Blood 2.7 g/dL (3.4-5.0); Anion Gap 8 mmol/L (3-11); Blood Urea Nitrogen 25 mg/dL (8-24); Bun/Creatinine Ratio 36.8 (12.0-20.0); CO2, Blood 30 mmol/L (21-32); Chloride, Blood 102 mmol/L (98-108); Creatinine, Blood 0.68 mg/dL (0.60-1.20); Glomerular Filtration Rate 93 (60-); Glucose, Blood 249 mg/dL (70-99); Magnesium, Blood 1.8 mg/dL (1.6-2.4); Sodium, Blood 136 mmol/L (136-145)
--- NOTE | 2025-04-12 06:48 | NUR ---
Shift Summary Pt admitted to this unit from ED for acute respiratory failure likely d/t aspiration pnumonia. He is on a soft bite sized diet. When he first came up he was frequently coughing up a small amount of dark brown sputum with a weak cough. ACTH stimulation test completed, per pt and ED nurse pt had not eaten for at least 6 hours before the test. Blood glucose was elevated upon arrival to 300, insulin coverage to start today. Pt has a chronic wound on he L heel, he states there is a graft on that wound. When I went to take a picture he warned removing the dressing could remove the graft and so I left it alone and did not take a photograph. Pt is on 1L NC and his baseline is RA, good SPO2 t/o the night. I did monitor his SPO2 for 1.5 hours while he was asleep and it remained > 95%. He is AOx4 with some forgetfulness, on bedrest at this time.
[2025-04-12] MEDS ORDERED: Hydrocortisone Sod Succinate 100 MG Vial IV SCH (08:00)
[2025-04-12] MEDS ORDERED: Metoprolol Succinate 25 MG TABCR PO SCH (09:00)
[2025-04-12] MEDS ORDERED: GuaiFENesin 600 MG TabCR PO SCH (09:00)
[2025-04-12] MEDS ORDERED: Calcium Carbonate 500 MG Tab Chew PO SCH (09:00)
[2025-04-12] MEDS ORDERED: Enoxaparin 40 MG/0.4 ML SYR SC SCH (09:00)
[2025-04-12] MEDS ORDERED: Gabapentin 300 MG Cap PO SCH ×2 (09:00→21:00)
[2025-04-12] MEDS ORDERED: Apixaban 5 MG Tab PO SCH (09:00)
[2025-04-12] MEDS ORDERED: DULoxetine HCL 60 MG Capsule DR PO SCH (09:00)
[2025-04-12] MEDS ORDERED: Sennosides 8.6 MG Tab PO SCH (09:00)
[2025-04-12] MEDS ORDERED: Tamsulosin HCl 0.4 MG Cap PO SCH (09:00)
[2025-04-12] MEDS ORDERED: Lactobacil 2-S.Thermo-Bifido 1 1 Cap PO SCH (09:00)
[2025-04-12] MEDS ORDERED: Pregabalin 50 MG Capsule PO SCH (09:00)
[2025-04-12] MEDS ORDERED: Aspirin 81 MG TabEC PO SCH (09:00)
[2025-04-12] MEDS ORDERED: Famotidine 20 MG Tab PO SCH (09:00)
[2025-04-12] MEDS ORDERED: Albuterol 2.5 MG/3 ML VIAL INH PRN (10:05)
[2025-04-12] MEDS ORDERED: Insulin Human Lispro 100 Units/ML 3ML Syringe SC SCH (11:30)
--- NOTE | 2025-04-12 18:26 | NUR ---
WOUND CARE PATIENT REPORTS THAT WOUND CARE TO LEFT FOOT SHOULD BE RESTARTED ON SATURDAY 04/14. PATIENT WITH SKIN GRAFT TO LEFT FOOT AND DRESSING SHOULD REMAIN IN PLACE UNTIL TUESDAY AND THEN BE CHANGED, PATIENT IS UNAWARE OF WHAT DRESSING NEEDS TO BE IN PLACE. DR. MEHTA AWARE AND STATES TO CONTACT THE [facility] TO CONTINUE THEIR WOUND CARE ORDERS. UNABLE TO REACH ANYONE AT THE [place] TO RECIEVE RECOOMENDATIONS FOR WOUND CARE. CHARGE NURSE INFORMED.
--- NOTE | 2025-04-12 18:32 | NUR ---
SHIFT SUMMARY PATIENT A/OX4, ABLE TO MAKE NEEDS KNOWN. PLEASANT AND COOPERATIVE WITH CARE. TELEMETRY IN PLACE A FLUTTER, NO EVENTS NOTED. SPEECH THERAPY EVALUATED PATIENT TODAY AND INCREASED DIET TO EASY TO CHEW TEXTURE, PATIENT TOLERATING WELL. PATIENT WEANED FROM OXYGEN AND ON ROOM AIR, TOLERATING WELL AND SPO2 REMAINS ABOVE 90%. DIRECTIONS FOR WOUND CARE UNABLE TO BE OBTAINED FROM THE [facility], CHARGE NURSE AWARE AND DIRECTIONS FOR WOUND CARE NEED TO BE OBTAINED. NO OTHER CONCERNS AT THIS TIME.
[2025-04-12] MEDS ORDERED: Atorvastatin 40 MG Tab PO SCH (21:00)
[2025-04-13 03:21] VITALS: BP 126/74
--- NOTE | 2025-04-13 04:56 | NUR ---
SHIFT SUMM: PT HAS BEEN RELAXING THIS SHIFT AND IS A&OX4 AND COOPERATIVE W/CARE. PT TAKES MEDS WHOLE W/APPLESAUCE. PT HAS PATENT PICC LINE TO OSCAR. PT USES THE BEDSIDE URINAL AND CALLS TO MAKE NEEDS KNOWN. NO STRAWS. PT ON TELE A-FLUTTER IN THE 'S. PT ON RA. PT HAS CALL LIGHT IN REACH AND BED LOW AND LOCKED.
[2025-04-13 07:28] VITALS: BP 116/73
[2025-04-13 15:13] VITALS: BP 115/63
--- NOTE | 2025-04-13 15:43 | NUR ---
SPOKE WITH GABRIELLE, RN AT [facility]. PT HAD ALLOGRAFT 04/04/25. WOUND VAC WAS REMOVED TO PLACE ALLOGRAFT. PT IS DUE FOR DRESSING CHANGE AND WOUND VAC REPLACEMENT. PER GABRIELLE, PLEASE CHANGE DRESSING, CLEANSE AREA, APPLY CALCIUM ALGENATE, COVER WITH FOAM DRESSING. PT WILL HAVE WOUND VAC PLACED AT [facility] ON SUNDAY 04/15. GABRIELLE WILL FOLLOW UP WITH PATHOLOGY LABORATORY AIDES TEACHER ON THIS FLOOR, Tuesday04/15/25
--- NOTE | 2025-04-13 16:54 | NUR ---
SUMMARY NO ACUTE CHANGES THIS SHIFT. PLS SEE PREVIOUS NOTES REGUARDING DRESSING CHANGE. PT IS ALERT AND ORIENTED X4, CALLS APPROPRIATELY. IV ANTIBIOTICS CONTINUED.
[2025-04-13 20:13] VITALS: BP 108/77
[2025-04-13 23:18] VITALS: BP 140/75
[2025-04-14 05:11] VITALS: BP 144/73
--- NOTE | 2025-04-14 06:39 | NUR ---
SHIFT SUMMARY PT IS ALERT AND ORIENTED TIMES 4, ADMITTED FOR ACUTE RESPIRATORY FAILURE. PT IS POSITIVE FOR MRSA WOUND IN LOWER EXTREMITY. PT HAS BKNA RIGHT. PT IS ON TELE WITH A-FLUTTER. PT IS CONTINENT OF URINE WITH URINAL. PT IS CALL LIGHT APPROPRIATE. PT IS RECEPTIVE TO CARE, TAKES MEDICATION WHOLE WITH APPLESAUCE. BED IS IN LOW POSITION, CALL LIGHT IS WITHIN REACH, AND RAILS ARE TIMES 2.
[2025-04-14 07:25] VITALS: BP 126/66
[2025-04-14 08:05] LABS: BASOPHILS ABSOLUTE AUTO 0.02 K/mm3 (0.00-0.23); BASOPHILS PERCENT AUTO 0 % (0-2); EOSINOPHILS ABSOLUTE AUTO 0.13 K/mm3 (0.00-0.68); EOSINOPHILS PERCENT AUTO 2 % (0-6); Hematocrit 26.4 % (37.0-53.0); Hemoglobin 8.1 g/dL (13.5-17.5); IMMATURE GRAN ABSOLUTE AUTO 0.07 K/mm3 (0.00-0.10); IMMATURE GRAN PERCENT AUTO 1 % (0-1); LYMPHOCYTES ABSOLUTE AUTO 1.64 K/mm3 (0.84-5.20); LYMPHOCYTES PERCENT AUTO 18 % (21-46); MONOCYTES ABSOLUTE AUTO 0.88 K/mm3 (0.16-1.47); MONOCYTES PERCENT AUTO 10 % (4-13); Mean Corpuscular HGB 27.3 pg (26.0-34.0); Mean Corpuscular HGB Conc 30.7 g/dL (31.5-36.5); Mean Corpuscular Volume 89 fL (80-100); Mean Platelet Volume 11.4 fL (9.1-12.4); NEUTROPHILS ABSOLUTE AUTO 6.16 K/mm3 (1.96-9.15); NEUTROPHILS PERCENT AUTO 69 % (41-73); Platelet Count 198 K/mm3 (150-400); RDW Coefficient Variation 17.5 % (11.7-14.2); RDW Standard Deviation 55.8 fL (35.1-46.3); Red Blood Cell Count 2.97 M/mm3 (4.30-5.90)
[2025-04-14 08:24] LABS: Albumin, Blood 2.7 g/dL (3.4-5.0); Albumin/Globulin Ratio 0.8 (0.8-1.8); Bilirubin, Total 0.5 mg/dL (0.1-1.0); Bun/Creatinine Ratio 26.4 (12.0-20.0); Calcium, Blood 8.5 mg/dL (8.5-10.1); Creatinine, Blood 0.72 mg/dL (0.60-1.20); Globulin, Blood 3.6 g/dL (2.2-4.0); Potassium, Blood 3.9 mmol/L (3.5-5.5); Total Protein, Blood 6.3 g/dL (6.4-8.2)
[2025-04-14 11:43] VITALS: BP 122/93
[2025-04-14] MEDS ORDERED: Melatonin 5 MG Tablet PO PRN (12:05)
[2025-04-14 15:30] VITALS: BP 122/84
[2025-04-14 19:36] VITALS: BP 129/93
[2025-04-15 00:16] VITALS: BP 93/70
[2025-04-15 04:16] VITALS: BP 148/66
--- NOTE | 2025-04-15 05:26 | NUR ---
SHIFT SUMMARY PT IS ALERT AND ORIENTED TIMES 4, ADMITTED FOR ACUTE RESPIRATORY FAILURE. PT IS POSITIVE FOR MRSA WOUND IN LOWER EXTREMITY. PT HAS BKA RIGHT SIDE. PT IS ON TELE WITH A-FLUTTER. PT IS CONTINENT OF URINE WITH URINAL. PT TRYING TO GETTING OUT OF BED WITHOUT CALL LIGHT, IN CONFUSED STATE, THINKING HE IS HOME, OR AT A DIFFERENT HOSPITAL, WANTED TO LAY IN BED WITH . PT WAS REDIRECTED BACK TO BED, EXPLAINED TO HIM WHERE HE WAS AT. PT STATES HAS NOT SLEPT GOOD IN A FEW NIGHTS. PT WAS GIVEN MELATONIN AT BED TIME, WHICH WAS EFFECTIVE FOR COUPLE HOURS. PT APPEARED TO SLEEP ON AND OFF, INSISTED ON TV STAYING ON. PT IS CALL LIGHT APPROPRIATE. PT IS RECEPTIVE TO CARE, TAKES MEDICATION WHOLE WITH APPLESAUCE. BED IS IN LOW POSITION, CALL LIGHT IS WITHIN REACH, AND RAILS ARE TIMES 2.
[2025-04-15 07:44] VITALS: BP 131/102
[2025-04-15] MEDS ORDERED: PredniSONE 10 MG Tab PO SCH (09:00)
[2025-04-15 11:04] VITALS: BP 95/47
[2025-04-15] MEDS ORDERED: VISBIOME 112.51 EACH PO (11:47)
[2025-04-15] MEDS ORDERED: AMOCLA875 PO (11:48)
[2025-04-15 15:09] VITALS: BP 118/79
--- NOTE | 2025-04-15 17:40 | NUR ---
SHIFT SUMMARY PT IS A/OX3, CONFUSION AND FORGETFUL AT TIMES. IMPULSIVE AT TIMES, EASILY REDIRECTABLE. NO ACUTE CHANGES THROUGHOUT THIS SHIFT. CONTINUING IV ANTIBIOTICS. ON RA, SATS >95%. ON TELE RUNNING AFLUTTER IN THE 'S. USING URINAL AT BEDSIDE WITH ASSISTANCE. EXPECTED TO [facility] TO THE [facility] TOMORROW.
[2025-04-15 19:26] VITALS: BP 136/65
--- NOTE | 2025-04-16 03:50 | NUR ---
FUEL CELL REPAIRER SUMMARY: PT A&O X4 WITH INTERMITTENT CONFUSION WHICH WORSENS AT HS. PT OBSERVED BY THIS NURSE TO BE LYING NAKED IN BED AND INAPPROPRIATELY TOUCHING GENITALS AND MAKING INAPPROPRIATE COMMENTS TO THIS NURSE. PT REDIRECETED AND GOWN PLACED ON PT. PRN MELATONIN AND APAP GIVEN, EFFECTIVE. LAMINATOR HAND NOTIFIED OF ABOVE INFO. NO NOTED AGITATION OR AGGRESSION TOWARDS STAFF. PT TO D/C BACK TO [facility] TOMORROW. BED IN LOWEST POSITION. CALL LIGHT IN REACH. CARES ONGOING ORDERED.
[2025-04-16 06:29] VITALS: BP 124/62
[2025-04-16 07:10] VITALS: BP 105/51
[2025-04-16 11:17] VITALS: BP 102/47
[2025-04-16 14:56] LABS: CORONAVIRUS COVID-19 AG Negative (NEGATIVE)
[2025-04-16 15:14] VITALS: BP 129/77
--- NOTE | 2025-04-16 18:22 | NUR ---
SHIFT SUMMARY PT IS A/OX3, CONFUSION AND FORGETFUL AT TIMES. NO ACUTE CHANGES THROUGHOUT THIS SHIFT. PT SLEEPING FOR MUCH OF THE DAY. ON TELE RUNNING AFLUTTER IN THE 60'S. PT REMAINS ON RA, SATS >95%. MEDS WHOLE WITH APPLESAUCE. PT IS PLEASANT AND COOPERATIVE WITH CARE.
[2025-04-16 19:28] VITALS: BP 95/60
[2025-04-16 23:54] VITALS: BP 159/90
--- NOTE | 2025-04-17 04:05 | NUR ---
MERRY GO ROUND ATTENDANT SUMMARY: PT A&O X4. NO INAPPROPRIATE BEHAVIOR T/O SHIFT. NO ACUTE EVENTS T/O SHIFT. TELE IN PLACE A FLUTTER 70'S. NO ADVERSE SIDE EFFECTS TO IV ZOSYN. PLAN IS TO D[facility]C TO [facility]. FALL PRECAUTIONS IN PLACE. CALL LIGHT IN REACH. CARES ONGOING ORDERED.
[2025-04-17 04:18] VITALS: BP 145/85
[2025-04-17 07:21] VITALS: BP 138/56
--- NOTE | 2025-04-17 12:00 | NUR ---
DISCHARGE NOTE PT BEING DIS[facility]GED BACK TO [facility]. PICC LINE DRESSIING CHANGED AND PT SENT WITH. WOUND CARE COMPLETED PER ORDER TO LEFT HEEL. REPORT GIVEN TO PRASHANT MASSEY AT [place]. PT PICKED UP VIA WHEELCHAIR AT 1150. ATTENDS IN PLACE. PACKET FROM CASE MANAGEMENT SENT WITHPATIENT. NO NEW QUESTIONS OR CONCERNS PRIOR TO DC.
[2025-04-17] MEDS ORDERED: [UNRECOGNIZED DRUG - CODE] IV (12:06)
== END 2025-04-17 11:55 | DRG 871 ==
LOC: ER 11:59 → MEDS 15:23
PROVIDERS: Internal Medicine; Student in an Organized Health Care Education/Training Program; ADMIT Internal Medicine
DX: A41.9 Sepsis, unspecified organism (principal); J18.9 Pneumonia, unspecified organism; J69.0 Pneumonitis due to inhalation of food and vomit; J96.01 Acute respiratory failure with hypoxia; J44.0 Chronic obstructive pulmonary disease with (acute) lower respiratory infection; I50.32 Chronic diastolic (congestive) heart failure; E27.49 Other adrenocortical insufficiency; I48.0 Paroxysmal atrial fibrillation; E11.42 Type 2 diabetes mellitus with diabetic polyneuropathy; I11.0 Hypertensive heart disease with heart failure; M35.3 Polymyalgia rheumatica; K21.9 Gastro-esophageal reflux disease without esophagitis; E11.51 Type 2 diabetes mellitus with diabetic peripheral angiopathy without gangrene; E78.00 Pure hypercholesterolemia, unspecified; N40.0 Benign prostatic hyperplasia without lower urinary tract symptoms; E11.65 Type 2 diabetes mellitus with hyperglycemia; E11.621 Type 2 diabetes mellitus with foot ulcer; L97.529 Non-pressure chronic ulcer of other part of left foot with unspecified severity; G89.29 Other chronic pain; R65.20 Severe sepsis without septic shock; Z79.52 Long term (current) use of systemic steroids; Z88.5 Allergy status to narcotic agent; Z79.01 Long term (current) use of anticoagulants; Z88.8 Allergy status to other drugs, medicaments and biological substances; Z79.82 Long term (current) use of aspirin; Z79.84 Long term (current) use of oral hypoglycemic drugs; Z79.2 Long term (current) use of antibiotics; Z89.511 Acquired absence of right leg below knee; Z89.422 Acquired absence of other left toe(s); Z89.412 Acquired absence of left great toe; Z87.891 Personal history of nicotine dependence; Z86.14 Personal history of Methicillin resistant Staphylococcus aureus infection; Z79.891 Long term (current) use of opiate analgesic; Z99.81 Dependence on supplemental oxygen
CPT/HCPCS: 36415; 71045; 74177; 80053; 80069; 80400; 82533; 82803; 82947; 83605; 83735; 84145; 85025; 85027; 87040; 87426-QW; 92610; 93005; 93010; 94760; 96365-59; 96375; 99285-25; A9270; J0692; J0834; J1200; J1720; J2543; J2919; J7030; J7050; J7060; J7512; Q9967

== ENCOUNTER 2025-05-03 17:37 | Inpatient (IN) | payer OTHER ==
[~2025-05-03] VITALS: Ht 177.8 cm; Wt 80.3 kg
[~2025-05-03 17:37] MED LIST changes: +[UNRECOGNIZED DRUG - CODE] IV
[2025-05-03] MEDS ORDERED: Ipratropium/Albuterol SulF 2.5-0.5MG/3 ML Amp INH ONE (17:55)
[2025-05-03 18:21] LABS: BASOPHILS ABSOLUTE AUTO 0.04 K/mm3 (0.00-0.23); BASOPHILS PERCENT AUTO 0 % (0-2); EOSINOPHILS ABSOLUTE AUTO 0.17 K/mm3 (0.00-0.68); EOSINOPHILS PERCENT AUTO 1 % (0-6); Hematocrit 29.1 % (37.0-53.0); Hemoglobin 8.8 g/dL (13.5-17.5); IMMATURE GRAN ABSOLUTE AUTO 0.12 K/mm3 (0.00-0.10); IMMATURE GRAN PERCENT AUTO 1 % (0-1); LYMPHOCYTES ABSOLUTE AUTO 1.34 K/mm3 (0.84-5.20); LYMPHOCYTES PERCENT AUTO 9 % (21-46); MONOCYTES ABSOLUTE AUTO 0.99 K/mm3 (0.16-1.47); MONOCYTES PERCENT AUTO 7 % (4-13); Mean Corpuscular HGB Conc 30.2 g/dL (31.5-36.5); Mean Corpuscular Volume 89 fL (80-100); NEUTROPHILS ABSOLUTE AUTO 12.47 K/mm3 (1.96-9.15); NEUTROPHILS PERCENT AUTO 82 % (41-73); NRBC ABSOLUTE 0.02 K/mm3 (0.00-0.02); NRBC Auto 0.1 /100 WBC (0.0-0.2); Platelet Count 198 K/mm3 (150-400); RDW Coefficient Variation 18.2 % (11.7-14.2); RDW Standard Deviation 58.7 fL (35.1-46.3)
[2025-05-03 18:48] LABS: Magnesium, Blood 1.3 mg/dL (1.6-2.4)
[2025-05-03 18:49] LABS: Alanine Aminotransfer (ALT/SGP 21.0 U/L (12-78); Albumin, Blood 2.9 g/dL (3.4-5.0); Albumin/Globulin Ratio 0.8 (0.8-1.8); Anion Gap 9.0 mmol/L (3-11); Aspartate Aminotrans (AST/SGOT 11.0 U/L (12-37); Bilirubin, Total 0.3 mg/dL (0.1-1.0); Blood Urea Nitrogen 27.0 mg/dL (8-24); CO2, Blood 29.0 mmol/L (21-32); Calcium, Blood 8.7 mg/dL (8.5-10.1); Chloride, Blood 101.0 mmol/L (98-108); Creatinine, Blood 0.7 mg/dL (0.60-1.20); Globulin, Blood 3.7 g/dL (2.2-4.0); Glucose, Blood 409.0 mg/dL (70-99); Potassium, Blood 4.8 mmol/L (3.5-5.5); Sodium, Blood 134.0 mmol/L (136-145); Total Protein, Blood 6.6 g/dL (6.4-8.2)
[2025-05-03 18:59] LABS: Influenza A, PCR NEGATIVE (NEGATIVE); Influenza B, PCR NEGATIVE (NEGATIVE); Resp Syncytial Virus, PCR NEGATIVE (NEGATIVE); SARS-Cov-2 (COVID-19) PCR, MMC NEGATIVE (NEGATIVE)
[2025-05-03] MEDS ORDERED: Ampicillin Sod/Sulbactam Sod 3 GM in NS 100 ML IV ONE (19:55)
[2025-05-03] MEDS ORDERED: Magnesium Sulf 2 GM/Water 50ML 50 ML IV ONE (20:00)
[2025-05-03] MEDS ORDERED: NS 1,000 ML IV SCH ×2 (20:00→20:50)
[2025-05-03] MEDS ORDERED: Ondansetron HCl 2 MG / ML 2ML Vial IV PRN (20:50)
[2025-05-03] MEDS ORDERED: Albuterol 2.5 MG/3 ML VIAL INH PRN (20:55)
[2025-05-03] MEDS ORDERED: Insulin Human Lispro 100 Units/ML 3ML Syringe SC SCH (21:00)
[2025-05-03] MEDS ORDERED: Lactobacil 2-S.Thermo-Bifido 1 1 Cap PO SCH (21:00)
[2025-05-03] MEDS ORDERED: NS 500 ML IV ONE (21:00)
[2025-05-03] MEDS ORDERED: Metoprolol Tartrate 1 MG/ML 5 ML VIAL IV PRN (21:00)
[2025-05-03 23:30] VITALS: BP 111/65
[2025-05-04 03:40] VITALS: BP 134/68
[2025-05-04 03:52] LABS: BASOPHILS ABSOLUTE AUTO 0.05 K/mm3 (0.00-0.23); BASOPHILS PERCENT AUTO 0 % (0-2); EOSINOPHILS ABSOLUTE AUTO 0.28 K/mm3 (0.00-0.68); EOSINOPHILS PERCENT AUTO 2 % (0-6); Hematocrit 29.0 % (37.0-53.0); Hemoglobin 8.7 g/dL (13.5-17.5); IMMATURE GRAN ABSOLUTE AUTO 0.13 K/mm3 (0.00-0.10); IMMATURE GRAN PERCENT AUTO 1 % (0-1); LYMPHOCYTES ABSOLUTE AUTO 1.53 K/mm3 (0.84-5.20); LYMPHOCYTES PERCENT AUTO 11 % (21-46); MONOCYTES ABSOLUTE AUTO 1.32 K/mm3 (0.16-1.47); MONOCYTES PERCENT AUTO 10 % (4-13); Mean Corpuscular HGB Conc 30.0 g/dL (31.5-36.5); Mean Corpuscular Volume 89 fL (80-100); NEUTROPHILS ABSOLUTE AUTO 10.54 K/mm3 (1.96-9.15); NEUTROPHILS PERCENT AUTO 76 % (41-73); NRBC ABSOLUTE 0.00 K/mm3 (0.00-0.02); NRBC Auto 0.0 /100 WBC (0.0-0.2); Platelet Count 206 K/mm3 (150-400); RDW Coefficient Variation 18.4 % (11.7-14.2); RDW Standard Deviation 59.5 fL (35.1-46.3)
[2025-05-04 04:15] LABS: Alanine Aminotransfer (ALT/SGP 18.0 U/L (12-78); Albumin, Blood 2.8 g/dL (3.4-5.0); Albumin/Globulin Ratio 0.8 (0.8-1.8); Anion Gap 8.0 mmol/L (3-11); Aspartate Aminotrans (AST/SGOT 11.0 U/L (12-37); Bilirubin, Total 0.4 mg/dL (0.1-1.0); Blood Urea Nitrogen 23.0 mg/dL (8-24); CO2, Blood 27.0 mmol/L (21-32); Calcium, Blood 8.2 mg/dL (8.5-10.1); Chloride, Blood 104.0 mmol/L (98-108); Creatinine, Blood 0.69 mg/dL (0.60-1.20); Globulin, Blood 3.5 g/dL (2.2-4.0); Glucose, Blood 224.0 mg/dL (70-99); Magnesium, Blood 1.9 mg/dL (1.6-2.4); Potassium, Blood 3.7 mmol/L (3.5-5.5); Sodium, Blood 135.0 mmol/L (136-145); Total Protein, Blood 6.3 g/dL (6.4-8.2)
[2025-05-04] MEDS ORDERED: Ampicillin Sod/Sulbactam Sod 3 GM in NS 100 ML IV SCH (06:00)
--- NOTE | 2025-05-04 06:51 | NUR ---
PT ARRIVED FROM THE ED ALERT AND ORIENTED WITH A BIT OF FORGETFULLNESS.ON RA, STATES HE DOES NOT USE OXYGEN AT HOME.PICC LINE IN PLACE DRESSING DATED 05/01/25 C/D/I WHICH THE PT ARRIVED [facility]AC[facility] WITH IT. PT ALSO HAS A WOUND VAC WITH CONTINOUS THERAPY FOR A CHRONIC LEFT WOUND, C/D/I. PT DOES HAVE A SMALL SKIN TEAR TO RIGHT FOREARM, BLANCHABLE RED BUTTOCKS, AND SCATTERED BRUISING/ECCHYMOSIS, LEFT TOE AMPUTATIONS AND RBKA WITH A PROSTHESTIC. PT ENDORSES PHANTOM PAIN ON THE RBKA.N0 C/O PAIN OR SOB. COMPLETE BED CHANGE AND CHG BATH DONE THIS AM.
[2025-05-04 07:32] VITALS: BP 127/68
[2025-05-04] MEDS ORDERED: DULoxetine HCL 60 MG Capsule DR PO SCH (09:00)
[2025-05-04] MEDS ORDERED: Lactobacil 2-S.Thermo-Bifido 1 1 Cap PO SCH (09:00)
[2025-05-04] MEDS ORDERED: Multivitamins 1 Tab PO SCH (09:00)
--- NOTE | 2025-05-04 09:47 | NUR ---
AM NOTE this rn assumed care at 0700. vital signs stable. tele afib 90s. patient is drowsy this morning but didnt get much sleep last night per night nurse and patient. patient is alert and oriented x3. patient is forgetfull. patient denies pain, chest pain/pressure or shortness of breath. see shift assessment for further detials. patient received bed bath this morning and [facility] bath. speech therapy is in the room currently working with the patient.
[2025-05-04] MEDS ORDERED: MUPIROCIN1 G1 TOP (10:05)
[2025-05-04] MEDS ORDERED: FURO20 PO (10:13)
[2025-05-04] MEDS ORDERED: PANT40 PO (10:14)
[2025-05-04] MEDS ORDERED: IPRAT-ALBUT 0.5-3 ML INH (10:14)
[2025-05-04] MEDS ORDERED: POTA10T PO (10:17)
[2025-05-04] MEDS ORDERED: OLODATEROL INH (10:23)
[2025-05-04] MEDS ORDERED: TIOTROPIUM INH (10:23)
[2025-05-04] MEDS ORDERED: TRAM50 PO (10:25)
[2025-05-04 11:18] VITALS: BP 111/53
[2025-05-04] MEDS ORDERED: Ipratropium/Albuterol SulF 2.5-0.5MG/3 ML Amp INH SCH (12:55)
[2025-05-04 15:52] VITALS: BP 118/67
--- NOTE | 2025-05-04 18:23 | NUR ---
shift summary no acute changes this shift. vital signs remain stable. straight cath one time for retention and showing 447, and when straight cath 600 out. patient repositioned q2. patient had one episode of incontience and hooked up to purwick for accurate i & os. patient agreed to this plan. patient is medical status with tele.
[2025-05-04 20:00] VITALS: BP 99/62
--- NOTE | 2025-05-04 22:13 | NUR ---
PT TRANSFERED TO MEDICAL FLOOR 308 FOR CONTINUITY OF CARE. REPORT GIVEN TO PRASHANT TIMMONS [facility]. NO C/O PAIN, ALERT AND ORIENTED.
[2025-05-04 23:37] VITALS: BP 96/66
[2025-05-05 03:59] VITALS: BP 95/55
--- NOTE | 2025-05-05 05:16 | NUR ---
SHIFT SUMMARY PT ADMITTED FOR SEVERE SEPSIS. PT HAS PICC LINE TRIPLE LUMIN. AWAITING BLOOD CULTURE TO RULE OUT AREA FOR POSSIBLE MRSA. PT IS ALERT AND ORIENTED TIMES 2-3 . PT HAS LEFT FOREARM IV. PT APPEARED TO SLEEP ON AND OFF THROUGH THE NIGHT WITHOUT ISSUE. PT IS COOPERATIVE WITH TREATMENT FROM STAFF. BED IN LOW POSITION, CALL LIGHT WITHIN REACH, RAILS TIMES 2.
[2025-05-05 07:07] LABS: Hematocrit 29.5 % (37.0-53.0); Hemoglobin 9.1 g/dL (13.5-17.5); Mean Corpuscular HGB Conc 30.8 g/dL (31.5-36.5); Mean Corpuscular Volume 89 fL (80-100); NRBC ABSOLUTE 0.00 K/mm3 (0.00-0.02); NRBC Auto 0.0 /100 WBC (0.0-0.2); Platelet Count 203 K/mm3 (150-400); RDW Coefficient Variation 18.2 % (11.7-14.2); RDW Standard Deviation 58.3 fL (35.1-46.3)
[2025-05-05 07:28] LABS: Anion Gap 6.0 mmol/L (3-11); Blood Urea Nitrogen 23.0 mg/dL (8-24); CO2, Blood 30.0 mmol/L (21-32); Calcium, Blood 7.9 mg/dL (8.5-10.1); Chloride, Blood 104.0 mmol/L (98-108); Creatinine, Blood 0.78 mg/dL (0.60-1.20); Glucose, Blood 153.0 mg/dL (70-99); Magnesium, Blood 1.7 mg/dL (1.6-2.4); Phosphorus, Blood 2.7 mg/dL (2.5-4.9); Potassium, Blood 3.7 mmol/L (3.5-5.5); Sodium, Blood 136.0 mmol/L (136-145)
[2025-05-05 07:32] VITALS: BP 115/81
[2025-05-05] MEDS ORDERED: NS 100 ML IV ONE (11:11)
[2025-05-05 11:32] VITALS: BP 121/64
--- NOTE | 2025-05-05 14:43 | NUR ---
FOUND POLST IN REGISTRY REFLECTING DNR AND SELECTIVE TREATMENT. SENT UPDATED POLST TO MEDICAL RECORDS REQUESTING TO UPDATE.
[2025-05-05 15:08] VITALS: BP 106/60
--- NOTE | 2025-05-05 17:46 | NUR ---
Pt is alert and oriented x3; pleasant and cooperative with care. Pt with right BKA and prosthetic in room, independent with placing and removing; wound vac to left foot and [facility] is managing. Pt denies pain, SOB, CP, N/V/D this shift. Pt has been up to chair for lunch and dinner today and is a 1 person assist. All medications administered per EMAR. Pt with PICC line that is NOT accessible at this time d/t ruling out infection in port. Pt utilizing call light appropriately; call light within reach and bed in lowest position. Will continue to monitor until next shift nurse arrives and report is given.
[2025-05-05 19:24] VITALS: BP 109/75
[2025-05-06] MEDS ORDERED: NS 0 ML IV ONE (00:11)
[2025-05-06 00:13] VITALS: BP 111/80
--- NOTE | 2025-05-06 02:51 | NUR ---
SUMMARY:PT IS A/OX4, CALLS APPROPRIATELY TO ENDORSE NEEDS AND IS PLEASANT AND COOPERATIVE W/CARE. HE HAS A WOUND VAC PRESENT TO HIS L.HEEL W/A WALKING BOOT IN PLACE AND A R.BKA W/PROSTHETIC IN ROOM FOR MOBILITY. PT CAN PIVOT T/F W/1PA AND ALSO USES A JUSTYN LIFT AT BASELINE. HE USES THE URINAL AT EOB AD KERI AND HAS ATTENDS CHANGED PRN FOR URGE INCONTINENCE. PT HAS SCATTERED BRUISING TO EXT'S FROM FALL PRECEEDING ADMIT BUT IS CURRENTLY AWARE OF LIMITATIONS. HE'S DENIED PAIN AND ALL OTHER COMPLAINTS. IV ABX RECEIVED PER EMAR FOR PNM AND PICC LINE NOT IN USE AT PRESENT PENDING CULTURES TO R/O INFECTION. HE REMAINS ON TELE IN AFLUTTER AT 90'S BPM. NO ACUTE CHANGES, VSS/AFEBRILE. WILL REPORT TO DAY RN.
[2025-05-06 04:22] VITALS: BP 116/60
[2025-05-06 04:53] LABS: BASOPHILS ABSOLUTE AUTO 0.03 K/mm3 (0.00-0.23); BASOPHILS PERCENT AUTO 0 % (0-2); EOSINOPHILS ABSOLUTE AUTO 0.23 K/mm3 (0.00-0.68); EOSINOPHILS PERCENT AUTO 3 % (0-6); Hematocrit 25.8 % (37.0-53.0); Hemoglobin 8.0 g/dL (13.5-17.5); IMMATURE GRAN ABSOLUTE AUTO 0.08 K/mm3 (0.00-0.10); IMMATURE GRAN PERCENT AUTO 1 % (0-1); LYMPHOCYTES ABSOLUTE AUTO 1.46 K/mm3 (0.84-5.20); LYMPHOCYTES PERCENT AUTO 18 % (21-46); MONOCYTES ABSOLUTE AUTO 0.85 K/mm3 (0.16-1.47); MONOCYTES PERCENT AUTO 10 % (4-13); Mean Corpuscular HGB Conc 31.0 g/dL (31.5-36.5); Mean Corpuscular Volume 87 fL (80-100); NEUTROPHILS ABSOLUTE AUTO 5.50 K/mm3 (1.96-9.15); NEUTROPHILS PERCENT AUTO 68 % (41-73); NRBC ABSOLUTE 0.00 K/mm3 (0.00-0.02); NRBC Auto 0.0 /100 WBC (0.0-0.2); Platelet Count 200 K/mm3 (150-400); RDW Coefficient Variation 18.2 % (11.7-14.2); RDW Standard Deviation 57.9 fL (35.1-46.3)
[2025-05-06 05:18] LABS: Anion Gap 7.0 mmol/L (3-11); Blood Urea Nitrogen 22.0 mg/dL (8-24); CO2, Blood 32.0 mmol/L (21-32); Calcium, Blood 7.8 mg/dL (8.5-10.1); Chloride, Blood 103.0 mmol/L (98-108); Creatinine, Blood 0.8 mg/dL (0.60-1.20); Glucose, Blood 115.0 mg/dL (70-99); Potassium, Blood 3.6 mmol/L (3.5-5.5); Sodium, Blood 138.0 mmol/L (136-145)
--- NOTE | 2025-05-06 05:37 | NUR ---
SUMMARY: PT IS A/OX4, CALLS APPROPRIATELY TO ENDORSE NEEDS AND IS PLEASANT AND COOPERATIVE W/CARE. HE HAS A WOUND VAC PRESENT TO HIS L.HEEL W/A WALKING BOOT IN PLACE AND A R.BKA W/PROSTHETIC IN ROOM FOR MOBILITY. PT CAN PIVOT T/F W/1PA AND ALSO USES A JUSTYN LIFT AT BASELINE. HE USES THE URINAL AT EOB AD KERI AND HAS ATTENDS CHANGED PRN FOR URGE INCONTINENCE. PT HAS SCATTERED BRUISING TO EXT'S FROM FALL PRECEEDING ADMIT BUT IS CURRENTLY AWARE OF LIMITATIONS. HE'S DENIED PAIN AND ALL OTHER COMPLAINTS. IV ABX RECEIVED PER EMAR FOR PNM AND PICC LINE NOT IN USE AT PRESENT PENDING CULTURES TO R/O INFECTION. HE REMAINS ON TELE IN AFIB/AFLUTTER AT 80'S-90'S BPM. NO ACUTE CHANGES, VSS/AFEBRILE. WILL REPORT TO DAY RN.
--- NOTE | 2025-05-06 05:49 | NUR ---
PT HAD 6 BEAT RUN OF V.TACH WHILE SLEEPING AND AWOKE TO DENY COMPLAINTS. MADE AWARE AND NO NEW ORDERS RECEIVED.
[2025-05-06 07:15] VITALS: BP 106/60
[2025-05-06 11:03] VITALS: BP 92/80
[2025-05-06] MEDS ORDERED: NS 250 ML IV PRN (12:15)
[2025-05-06 15:19] VITALS: BP 118/72
--- NOTE | 2025-05-06 18:40 | NUR ---
SUMMARY PT ON ROOM AIR AND MAINTAINING O2 SATS GREATER THAN 92%. TELEMETRY MONITORING OF AFIB, BBB,PVC. NO ACUTE EVENTS ON TELE. PT CONTINUES TO HAVE COURSE RIGHT SIDED LUNG SOUNDS, CRACKLES TO LEFT. PT TO HAVE SWALLOW STUDY TOMORROW 05/07. BEING FOLLOWED BY SPEECH THERAPY. DYSPHAGIA PRECAUTIONS. PT UP TO CHAIR FOR MEALS. PICC LINE TO OSCAR WAS PLACED HERE IN [facility] ON 03/14/25. DR. PATEL DEBATING IV ANTIBX VS PO AND TO POTENTIALLY REMOVE PICC. WOUND TO LEFT HEEL WITH WOUND VAC TO LOW CONT SUCTIONS PLACED BY VA AND LAST CHANGED BY VA. NOBODY FROM VA CAME BY TODAY TO ASSESS WOUND VAC, OR FOLLOW UP VIA PHONE. PT HAS WALKING BOOT TO LEFT FOOT AND PROSTHETIC TO RIGHT LEG WHEN UP OOB. OFFERED TO REMOVE BOOT TO LEFT FOOT AND PT DENIED. IV ANTIBX GIVEN THROUGH PERIPHERAL IV.
[2025-05-06 19:50] VITALS: BP 123/67
[2025-05-07] VITALS (7 sets, daily range): BP systolic 96–127; BP diastolic 58–71
[2025-05-07] MEDS ORDERED: Ipratropium/Albuterol SulF 2.5-0.5MG/3 ML Amp INH PRN (03:00)
--- NOTE | 2025-05-07 05:35 | NUR ---
SHIFT SUMMARY A&OX4 WITH OCCASIONAL CONFUSION. ABLE TO MAKE NEEDS KNOWN. RIGHT BKA. PROSTHESIS AT BEDSIDE. 1 PERSON STAND PIVOT WITH GAIT BELT AND WALKER. USES URINAL AD KERI. WOUND VAC PATENT AND FUNCTIONING THAT WAS PLACED FROM VA ON LLL. BARIUM SWALLOW TEST SCHEDULED FOR 05/07/25. PLAN TO BE DISCHARGED TO THE VA WHEN THAT TIME COMES. PT SLEPT WELL THROUGHOUT NIGHT IN BED AT LOWEST POSITION WITH CALL LIGHT IN REACH.
[2025-05-07 12:37] LABS: Albumin, Blood 2.7 g/dL (3.4-5.0); Anion Gap 13 mmol/L (3-11); Blood Urea Nitrogen 23 mg/dL (8-24); CO2, Blood 30 mmol/L (21-32); Calcium, Blood 8.4 mg/dL (8.5-10.1); Chloride, Blood 102 mmol/L (98-108); Creatinine, Blood 0.75 mg/dL (0.60-1.20); Glucose, Blood 162 mg/dL (70-99); Phosphorus, Blood 3.1 mg/dL (2.5-4.9); Potassium, Blood 3.8 mmol/L (3.5-5.5); Sodium, Blood 141 mmol/L (136-145)
[2025-05-07 12:38] LABS: CORONAVIRUS COVID-19 AG Negative (NEGATIVE)
--- NOTE | 2025-05-07 17:06 | NUR ---
CALLED THE [facility] FOR RECOMMENDATIONS FOR WOUND VAC SINCE PT IS STAYING IN [facility]. HAS TRANSPORT SCHEDULED FOR 11 AM 05/08. SPOKE TO GABRIELLE WHO IS WOUND CARE NURSE AT [facility], SHE RECOMMENDED I TAKE THE WOUND VAC OFF AND CLEANSE WOUND AND PLACE ADAPTIC MEPILEX IN THE MEAN TIME. THEY WILL ASSESS PT AT [facility] TOMORROW. WOUND CARE COMPLETED THIS EVENING AT 1700. WOUND VAC WAS LAST CHAGNED TUESDAY AT [facility]. TAKEN OFF TODAY 05/07. NOTIFIED DR. SILVA OF REMOVAL OF WOUND VAC PER [facility] RECOMMENDATIONS AND OF PATIENTS BLOOD PRESSURE OF 96/64. HR WNL NO OTHER S/S. NO CHANGES TO PLAN OF CRE.
[2025-05-07] MEDS ORDERED: PRED5 PO (19:43)
[2025-05-07] MEDS ORDERED: AMOCLA875 PO (19:44)
[2025-05-07] MEDS ORDERED: DOCU100 PO (19:45)
[2025-05-07] MEDS ORDERED: FERSU300 PO (19:45)
[2025-05-07] MEDS ORDERED: Acerola C500 MG PO (19:45)
[2025-05-08 00:35] VITALS: BP 129/80
--- NOTE | 2025-05-08 00:46 | NUR ---
RECEIVED A CALL FROM [facility] PT HAD A RUN OF 8 BEATS OF V TACH. PT RESTING IN HIS BED. DENIES CHEST PAIN OR SOB. VERY PLEASANT DEMEANOR. VSS. WILL CONTINUE TO MONITOR.
[2025-05-08 03:22] VITALS: BP 135/77
--- NOTE | 2025-05-08 04:59 | NUR ---
SHIFT SUMMARY A&O X4. ABLE TO MAKE ALL NEEDS KNOWN. TELE IN PLACE: A FLUTTER AT 60 W/BBB. HE DID HAVE A RUN OF 8 V TACH DURING SHIFT. UPON ASSESSMENT HE DENIED CHEST PAIN OR SOB. VSS. HE HAS A RIGHT BKA AND PROSTHESIS THAT WAS REMOVED PRIOR TO GETTING PT INTO BED AND IS CURRENTLY AT BEDSIDE. PT RECEIVED IV ABX AT 0000 AND TOLERATED WELL. PLAN IS FOR PT TO D/C TODAY TO [facility] AT 1100. HE WILL D/C WITH HIS PICC LINE. REPORT TO BE GIVEN TO [facility]. RECOMMEND F/U WITH GI OUTPATIENT. PT CURRENTLY RESTING IN HIS BED IN LOWEST POSITION WITH CALL LIGHT WITHIN REACH.
[2025-05-08 07:04] VITALS: BP 126/71
--- NOTE | 2025-05-08 11:42 | NUR ---
THIS RN CALLED THE [facility] TO GIVE REPORT AND SPOKE TO PRASHANT KELLY.
--- NOTE | 2025-05-08 13:01 | NUR ---
DISCHARGE NOTE PT D/C TO THE VA AT APPROX 1215. PT A&OX4, VSS, AMB W/ ASSIST, TOLERATING PO, VOIDING, AND DENIED PAIN. PICC LINE REMAINED IN PLACE. REPORT GIVEN TO PRASHANT KELLY FROM THE [facility]. BELONGINGS WERE RETURNED, DISCHARGE PACKET GIVEN TO TRANSPORT, AND PT ESCOURTED OUT VIA W/C BY TRANSPORT.
== END 2025-05-08 12:15 | DRG 871 ==
LOC: ER 17:37 → MEDS 20:45 → PCU 20:45 → MEDS 05-04 22:25
PROVIDERS: Internal Medicine; Nurse Practitioner Acute Care; Student in an Organized Health Care Education/Training Program; ADMIT Internal Medicine
DX: A41.9 Sepsis, unspecified organism (principal); J18.9 Pneumonia, unspecified organism; J69.0 Pneumonitis due to inhalation of food and vomit; J44.0 Chronic obstructive pulmonary disease with (acute) lower respiratory infection; I50.42 Chronic combined systolic (congestive) and diastolic (congestive) heart failure; E87.20 Acidosis, unspecified; I48.0 Paroxysmal atrial fibrillation; I11.0 Hypertensive heart disease with heart failure; Z66 Do not resuscitate; N40.0 Benign prostatic hyperplasia without lower urinary tract symptoms; M10.9 Gout, unspecified; K21.9 Gastro-esophageal reflux disease without esophagitis; M19.90 Unspecified osteoarthritis, unspecified site; E11.42 Type 2 diabetes mellitus with diabetic polyneuropathy; I25.10 Atherosclerotic heart disease of native coronary artery without angina pectoris; I45.10 Unspecified right bundle-branch block; E11.65 Type 2 diabetes mellitus with hyperglycemia; E83.42 Hypomagnesemia; R65.20 Severe sepsis without septic shock; E11.51 Type 2 diabetes mellitus with diabetic peripheral angiopathy without gangrene; E87.70 Fluid overload, unspecified; E78.5 Hyperlipidemia, unspecified; E11.621 Type 2 diabetes mellitus with foot ulcer; L97.529 Non-pressure chronic ulcer of other part of left foot with unspecified severity; D50.9 Iron deficiency anemia, unspecified; K59.00 Constipation, unspecified; M35.3 Polymyalgia rheumatica; Z88.5 Allergy status to narcotic agent; Z91.013 Allergy to seafood; Z79.899 Other long term (current) drug therapy; Z79.82 Long term (current) use of aspirin; Z79.52 Long term (current) use of systemic steroids; Z79.01 Long term (current) use of anticoagulants; Z87.01 Personal history of pneumonia (recurrent); Z89.511 Acquired absence of right leg below knee; Z89.412 Acquired absence of left great toe; Z89.422 Acquired absence of other left toe(s); Z87.891 Personal history of nicotine dependence
CPT/HCPCS: 36415; 71045; 71250; 80048; 80053; 80069; 82947; 83605; 83735; 83880; 84100; 84145; 85025; 85027; 87040; 87426-QW; 87449; 87637; 92526; 92610; 93005; 93010; 94640; 94664; 94760; 94762; 97110; 97162; 97165; 97530; 97535; 99285-25; A9270; J0295; J1938; J3475; J7030; J7040; J7050; J7512

== ENCOUNTER 2025-05-12 18:06 | Observation (INO) | payer OTHER ==
[~2025-05-12] VITALS: Ht 175.3 cm; Wt 78.5 kg
[~2025-05-12 18:06] MED LIST changes: +Acerola C500 MG PO; +IPRAT-ALBUT 0.5-3 ML INH; +OLODATEROL INH; +PANT40 PO; +TIOTROPIUM INH
[2025-05-12] MEDS ORDERED: Ipratropium/Albuterol SulF 2.5-0.5MG/3 ML Amp INH ONE (19:00)
[2025-05-12] MEDS ORDERED: DiphenhydrAMINE HCl 50 MG/ML 1ML Vial IV ONE (19:00)
[2025-05-12 19:11] LABS: BASOPHILS ABSOLUTE AUTO 0.04 K/mm3 (0.00-0.23); BASOPHILS PERCENT AUTO 0 % (0-2); EOSINOPHILS ABSOLUTE AUTO 0.17 K/mm3 (0.00-0.68); EOSINOPHILS PERCENT AUTO 2 % (0-6); Hematocrit 31.6 % (37.0-53.0); Hemoglobin 9.5 g/dL (13.5-17.5); IMMATURE GRAN ABSOLUTE AUTO 0.26 K/mm3 (0.00-0.10); IMMATURE GRAN PERCENT AUTO 3 % (0-1); LYMPHOCYTES ABSOLUTE AUTO 0.49 K/mm3 (0.84-5.20); LYMPHOCYTES PERCENT AUTO 5 % (21-46); MONOCYTES ABSOLUTE AUTO 0.79 K/mm3 (0.16-1.47); MONOCYTES PERCENT AUTO 8 % (4-13); Mean Corpuscular HGB Conc 30.1 g/dL (31.5-36.5); Mean Corpuscular Volume 88 fL (80-100); NEUTROPHILS ABSOLUTE AUTO 8.43 K/mm3 (1.96-9.15); NEUTROPHILS PERCENT AUTO 83 % (41-73); NRBC ABSOLUTE 0.02 K/mm3 (0.00-0.02); NRBC Auto 0.2 /100 WBC (0.0-0.2); Platelet Count 212 K/mm3 (150-400); RDW Coefficient Variation 18.3 % (11.7-14.2); RDW Standard Deviation 58.7 fL (35.1-46.3)
[2025-05-12 19:59] LABS: Source, Urine Straight Cath
[2025-05-12 20:05] LABS: Bilirubin, Urine Neg (Neg); Glucose Qualitative, Urine 1+ (Neg); Ketones, Urine Neg (Neg); Leukocyte Esterase, Urine 3+ (Neg); Protein, Urine 2+ (Neg); Specific Gravity, Urine 1.015 (1.003-1.022); Urobilinogen, Urine NORM (Normal)
[2025-05-12 20:08] LABS: pH Blood Venous 7.37 (7.34-7.37)
[2025-05-12 20:13] LABS: Color, Urine Yellow (P-Yellow)
[2025-05-12 20:14] LABS: Yeast/Fungi Urine Many /hpf
[2025-05-12 20:39] LABS: Influenza A, PCR NEGATIVE (NEGATIVE); Influenza B, PCR NEGATIVE (NEGATIVE); Resp Syncytial Virus, PCR NEGATIVE (NEGATIVE)
[2025-05-12] MEDS ORDERED: NS 500 ML IV SCH (20:55)
[2025-05-12 20:59] LABS: SARS-Cov-2 (COVID-19) PCR, MMC POSITIVE (NEGATIVE)
[2025-05-12 21:11] LABS: Alanine Aminotransfer (ALT/SGP 20.0 U/L (12-78); Albumin, Blood 2.9 g/dL (3.4-5.0); Albumin/Globulin Ratio 0.7 (0.8-1.8); Anion Gap 8.0 mmol/L (3-11); Aspartate Aminotrans (AST/SGOT 17.0 U/L (12-37); Bilirubin, Total 0.4 mg/dL (0.1-1.0); Blood Urea Nitrogen 24.0 mg/dL (8-24); CO2, Blood 32.0 mmol/L (21-32); Calcium, Blood 9.0 mg/dL (8.5-10.1); Chloride, Blood 102.0 mmol/L (98-108); Creatinine, Blood 0.74 mg/dL (0.60-1.20); Globulin, Blood 3.9 g/dL (2.2-4.0); Glucose, Blood 195.0 mg/dL (70-99); Potassium, Blood 4.5 mmol/L (3.5-5.5); Sodium, Blood 137.0 mmol/L (136-145); Total Protein, Blood 6.8 g/dL (6.4-8.2)
[2025-05-12] MEDS ORDERED: Ondansetron HCl 2 MG / ML 2ML Vial IV PRN (23:40)
[2025-05-13 01:05] VITALS: BP 101/68
[2025-05-13] MEDS ORDERED: Albuterol 2.5 MG/3 ML VIAL INH PRN (02:05)
[2025-05-13] MEDS ORDERED: Ipratropium/Albuterol SulF 2.5-0.5MG/3 ML Amp INH SCH (02:05)
[2025-05-13] MEDS ORDERED: Potassium Chloride 10 Meq Tablet SA PO SCH (02:10)
--- NOTE | 2025-05-13 03:55 | NUR ---
SHIFT SUMMARY: PT ADMITTED THIS SHIFT. IPA STAND PIVOT TO BSC. VSS. TELEMETRY MONITORING AFIB 100-110s. CONTINUOUS PULSE OXIMETRY, >95% ON RA. INTERMITTENT COUGHING, BUT PT DENIES CP. WOUND TO L HEEL WAS REINFORCED WITH KERLEX AND ACEWRAP. CALL LIGHT IS WITHIN REACH. BED ALARM IS ON. BED IS LOW AND LOCKED.
[2025-05-13 05:49] LABS: BASOPHILS ABSOLUTE AUTO 0.03 K/mm3 (0.00-0.23); BASOPHILS PERCENT AUTO 0 % (0-2); EOSINOPHILS ABSOLUTE AUTO 0.00 K/mm3 (0.00-0.68); EOSINOPHILS PERCENT AUTO 0 % (0-6); Hematocrit 32.4 % (37.0-53.0); Hemoglobin 9.9 g/dL (13.5-17.5); IMMATURE GRAN ABSOLUTE AUTO 0.20 K/mm3 (0.00-0.10); IMMATURE GRAN PERCENT AUTO 2 % (0-1); LYMPHOCYTES ABSOLUTE AUTO 0.82 K/mm3 (0.84-5.20); LYMPHOCYTES PERCENT AUTO 9 % (21-46); MONOCYTES ABSOLUTE AUTO 0.14 K/mm3 (0.16-1.47); MONOCYTES PERCENT AUTO 2 % (4-13); Mean Corpuscular HGB Conc 30.6 g/dL (31.5-36.5); Mean Corpuscular Volume 88 fL (80-100); NEUTROPHILS ABSOLUTE AUTO 8.35 K/mm3 (1.96-9.15); NEUTROPHILS PERCENT AUTO 88 % (41-73); NRBC ABSOLUTE 0.00 K/mm3 (0.00-0.02); NRBC Auto 0.0 /100 WBC (0.0-0.2); Platelet Count 196 K/mm3 (150-400); RDW Coefficient Variation 18.4 % (11.7-14.2); RDW Standard Deviation 59.6 fL (35.1-46.3)
[2025-05-13 06:07] VITALS: BP 137/80
[2025-05-13 06:15] LABS: Alanine Aminotransfer (ALT/SGP 23.0 U/L (12-78); Albumin, Blood 2.8 g/dL (3.4-5.0); Albumin/Globulin Ratio 0.7 (0.8-1.8); Anion Gap 11.0 mmol/L (3-11); Aspartate Aminotrans (AST/SGOT 24.0 U/L (12-37); Bilirubin, Total 0.5 mg/dL (0.1-1.0); Blood Urea Nitrogen 29.0 mg/dL (8-24); CO2, Blood 27.0 mmol/L (21-32); Calcium, Blood 8.7 mg/dL (8.5-10.1); Chloride, Blood 102.0 mmol/L (98-108); Creatinine, Blood 0.7 mg/dL (0.60-1.20); Globulin, Blood 4.1 g/dL (2.2-4.0); Glucose, Blood 273.0 mg/dL (70-99); Magnesium, Blood 1.7 mg/dL (1.6-2.4); Potassium, Blood 5.0 mmol/L (3.5-5.5); Sodium, Blood 135.0 mmol/L (136-145); Total Protein, Blood 6.9 g/dL (6.4-8.2)
[2025-05-13] MEDS ORDERED: Insulin Human Lispro 100 Units/ML 3ML Syringe SC SCH (07:30)
[2025-05-13 07:59] VITALS: BP 131/88
[2025-05-13] MEDS ORDERED: Multivitamins 1 Tab PO SCH (09:00)
[2025-05-13] MEDS ORDERED: Ascorbic Acid 250 MG Chew PO SCH (09:00)
[2025-05-13] MEDS ORDERED: DULoxetine HCL 60 MG Capsule DR PO SCH (09:00)
[2025-05-13] MEDS ORDERED: Lactobacil 2-S.Thermo-Bifido 1 1 Cap PO SCH (09:00)
[2025-05-13 15:44] VITALS: BP 128/59
--- NOTE | 2025-05-13 18:22 | NUR ---
SHIFT SUMMARY PT IS A/OX4. HARD OF HEARING. 1 PERSON STAND PIVOT TO THE BSC. ECHO COMPLETED THIS AFTERNOON. ON RA, SATS >92% WITH OCCASSIONAL DESATS INTO THE 80'S WITH QUICK RETURN INTO THE 90'S. PT SLEEPING FOR MUCH OF THIS AFTERNOON. JEZ SAENZ'Amee AROUND 1700 THIS EVENING. PT IS PLEASANT AND COOPERATIVE WITH CARE AND CALLS APPROPRIATELY USING THE CALL LIGHT.
[2025-05-13 20:05] VITALS: BP 114/54
[2025-05-14 00:17] VITALS: BP 100/54
--- NOTE | 2025-05-14 03:26 | NUR ---
SHIFT SUMMARY: AOX4, BUT LETHARGIC. LUNG SOUNDS WERE DIMINISHED DURING ASSESSMENT, AND PT STILL HAD AN INTERMITTENT COUGH. TELEMETRY MONITORING IN PLACE, AFIB 60s. STILL AWAITING RESULTS OF ECHO EXAM. PT DID URINATE AFTER STORY WAS REMOVED, BUT DUE TO POOR PO INTAKE PT HAD LOW URINE OUTPUT. CALL LIGHT IS WITHIN REACH. BED IS LOW AND LOCKED.
[2025-05-14 04:12] VITALS: BP 117/69
[2025-05-14 05:29] LABS: BASOPHILS ABSOLUTE AUTO 0.02 K/mm3 (0.00-0.23); BASOPHILS PERCENT AUTO 0 % (0-2); EOSINOPHILS ABSOLUTE AUTO 0.01 K/mm3 (0.00-0.68); EOSINOPHILS PERCENT AUTO 0 % (0-6); Hematocrit 32.7 % (37.0-53.0); Hemoglobin 9.8 g/dL (13.5-17.5); IMMATURE GRAN ABSOLUTE AUTO 0.11 K/mm3 (0.00-0.10); IMMATURE GRAN PERCENT AUTO 1 % (0-1); LYMPHOCYTES ABSOLUTE AUTO 1.27 K/mm3 (0.84-5.20); LYMPHOCYTES PERCENT AUTO 9 % (21-46); MONOCYTES ABSOLUTE AUTO 0.94 K/mm3 (0.16-1.47); MONOCYTES PERCENT AUTO 6 % (4-13); Mean Corpuscular HGB Conc 30.0 g/dL (31.5-36.5); Mean Corpuscular Volume 88 fL (80-100); NEUTROPHILS ABSOLUTE AUTO 12.49 K/mm3 (1.96-9.15); NEUTROPHILS PERCENT AUTO 84 % (41-73); NRBC ABSOLUTE 0.00 K/mm3 (0.00-0.02); NRBC Auto 0.0 /100 WBC (0.0-0.2); Platelet Count 201 K/mm3 (150-400); RDW Coefficient Variation 18.2 % (11.7-14.2); RDW Standard Deviation 58.5 fL (35.1-46.3)
[2025-05-14 05:46] LABS: Anion Gap 5.0 mmol/L (3-11); Blood Urea Nitrogen 31.0 mg/dL (8-24); CO2, Blood 32.0 mmol/L (21-32); Calcium, Blood 8.7 mg/dL (8.5-10.1); Chloride, Blood 102.0 mmol/L (98-108); Creatinine, Blood 0.72 mg/dL (0.60-1.20); Glucose, Blood 145.0 mg/dL (70-99); Potassium, Blood 4.3 mmol/L (3.5-5.5); Sodium, Blood 135.0 mmol/L (136-145)
[2025-05-14 07:35] VITALS: BP 116/68
[2025-05-14 11:32] VITALS: BP 102/54
--- NOTE | 2025-05-14 14:39 | NUR ---
REPORT CALLED TO YUNIEL BREWER NURSE, [place]. AWAITING TRANSPORT.
--- NOTE | 2025-05-14 15:12 | NUR ---
PT DISCHARGED BACK TO THE [facility] VIA WHEELCHAIR. ALL VALUABLES RETURNED AND SENT WITH THE PT.
== END 2025-05-14 15:09 ==
LOC: ER 18:06 → MEDS 18:07
PROVIDERS: Emergency Medicine; Student in an Organized Health Care Education/Training Program; ADMIT Student in an Organized Health Care Education/Training Program
DX: R07.9 Chest pain, unspecified (principal); U07.1 COVID-19; I35.0 Nonrheumatic aortic (valve) stenosis; J44.9 Chronic obstructive pulmonary disease, unspecified; I11.0 Hypertensive heart disease with heart failure; I50.42 Chronic combined systolic (congestive) and diastolic (congestive) heart failure; E11.51 Type 2 diabetes mellitus with diabetic peripheral angiopathy without gangrene; I48.0 Paroxysmal atrial fibrillation; N39.0 Urinary tract infection, site not specified; J69.0 Pneumonitis due to inhalation of food and vomit; K21.9 Gastro-esophageal reflux disease without esophagitis; E78.5 Hyperlipidemia, unspecified; D64.9 Anemia, unspecified; Z66 Do not resuscitate; Z79.01 Long term (current) use of anticoagulants; Z79.899 Other long term (current) drug therapy; Z88.5 Allergy status to narcotic agent; Z91.013 Allergy to seafood; Z88.8 Allergy status to other drugs, medicaments and biological substances; Z87.891 Personal history of nicotine dependence
CPT/HCPCS: 36415; 51702; 71260; 74177; 80048; 80053; 81001; 82803; 82947; 83690; 83735; 83880; 84145; 84484; 85025; 85379; 87086; 87637; 93005; 93010; 93306; 94640; 94664; 94762; 96374-59; 96375-59; 99285-25; A9270; G0378; J1200; J2919; J7030; Q9967

== ENCOUNTER 2025-06-12 12:14 | Inpatient (IN) | payer OTHER ==
[~2025-06-12] VITALS: Ht 180.3 cm; Wt 73.3 kg
[~2025-06-12 12:14] MED LIST changes: -Cymbalta20 MG PO; +DULO60 PO; -PREG100 PO; +PREGABALIN PO
[2025-06-12 12:35] VITALS: BP 128/68
[2025-06-12] MEDS ORDERED: PRED5 PO (12:48)
[2025-06-12 14:59] LABS: BASOPHILS ABSOLUTE AUTO 0.05 K/mm3 (0.00-0.23); BASOPHILS PERCENT AUTO 0 % (0-2); EOSINOPHILS ABSOLUTE AUTO 0.13 K/mm3 (0.00-0.68); EOSINOPHILS PERCENT AUTO 1 % (0-6); Hematocrit 30.1 % (37.0-53.0); Hemoglobin 9.3 g/dL (13.5-17.5); IMMATURE GRAN ABSOLUTE AUTO 0.13 K/mm3 (0.00-0.10); IMMATURE GRAN PERCENT AUTO 1 % (0-1); LYMPHOCYTES ABSOLUTE AUTO 1.07 K/mm3 (0.84-5.20); LYMPHOCYTES PERCENT AUTO 9 % (21-46); MONOCYTES ABSOLUTE AUTO 0.99 K/mm3 (0.16-1.47); MONOCYTES PERCENT AUTO 8 % (4-13); Mean Corpuscular HGB Conc 30.9 g/dL (31.5-36.5); Mean Corpuscular Volume 89 fL (80-100); NEUTROPHILS ABSOLUTE AUTO 9.48 K/mm3 (1.96-9.15); NEUTROPHILS PERCENT AUTO 80 % (41-73); NRBC ABSOLUTE 0.00 K/mm3 (0.00-0.02); NRBC Auto 0.0 /100 WBC (0.0-0.2); Platelet Count 217 K/mm3 (150-400); RDW Coefficient Variation 18.3 % (11.7-14.2); RDW Standard Deviation 58.4 fL (35.1-46.3)
[2025-06-12] MEDS ORDERED: Ipratropium/Albuterol SulF 2.5-0.5MG/3 ML Amp INH SCH (15:20)
[2025-06-12 15:25] VITALS: BP 123/66
[2025-06-12] MEDS ORDERED: Albuterol 2.5 MG/3 ML VIAL INH PRN (15:25)
[2025-06-12 15:34] LABS: Alanine Aminotransfer (ALT/SGP 17.0 U/L (12-78); Albumin, Blood 2.7 g/dL (3.4-5.0); Albumin/Globulin Ratio 0.6 (0.8-1.8); Anion Gap 3.0 mmol/L (3-11); Aspartate Aminotrans (AST/SGOT 10.0 U/L (12-37); Bilirubin, Total 0.3 mg/dL (0.1-1.0); Blood Urea Nitrogen 30.0 mg/dL (8-24); CO2, Blood 29.0 mmol/L (21-32); Calcium, Blood 9.0 mg/dL (8.5-10.1); Chloride, Blood 101.0 mmol/L (98-108); Creatinine, Blood 0.72 mg/dL (0.60-1.20); Globulin, Blood 4.2 g/dL (2.2-4.0); Glucose, Blood 364.0 mg/dL (70-99); Magnesium, Blood 1.9 mg/dL (1.6-2.4); Potassium, Blood 4.4 mmol/L (3.5-5.5); Sodium, Blood 129.0 mmol/L (136-145); Thyroid Stimulating Hormone 1.15 uIU/mL (0.360-4.800); Total Protein, Blood 6.9 g/dL (6.4-8.2)
[2025-06-12] MEDS ORDERED: Insulin Human Lispro 100 Units/ML 3ML Syringe SC SCH (16:30)
[2025-06-12 17:29] VITALS: BP 114/51
--- NOTE | 2025-06-12 19:03 | NUR ---
SHIFT SUMMARY: PT ARRIVED TO PCU 11 AT 1235 VIA WHEEL CHAIR FROM [place] WHERE HE HAS BEEN LIVING FOR THE LAST 3 YEARS. PT ARRIVED A&OX4. FOLLOWS COMMANDS AND ANSWERS QUESTIONS APPROPRIATELY. WOUND CARE PROVIDED TO L FOOT. PROVIDER NOTIFIED OF STAGE 3 WOUND. PICTURES OF WOUNDS IN CHART. DENIES ANY C/O CP, PRESSRE, TIGHTNESS OR SOB. PT IS AFLUTTER WITH RUNS OF FLUTTER. PT GIVEN DIG. USING URINAL IN BED INDEPENDENTLY. TOLERATING PO INTAKE WITHOUT ANY COMPLAINTS. NO SIGNIFICANT EVENTS HAPPENED DURING THIS SHIFT. WILL CONTINUE TO CARE FOR PT TILL END OF SHIFT.
[2025-06-12 19:30] VITALS: BP 116/88
--- NOTE | 2025-06-12 20:47 | NUR ---
ASSUMPTION OF CARE ASSUMED PT'S CARE AT 1900,BEDSIDE REPORT COMPLETED.PT WIDE AWAKE,RESTING IN BED WATCHING TV.PLAN OF CARE REVIEWED.PT DENIES PAIN,DENIES SOB,DENIES NEEDS AT THIS TIME.CALL LIGHT AND PT'S ITEMS WITHIN REACH.MONITORING ONGOING PER CAREPLAN.
[2025-06-12] MEDS ORDERED: Lactobacil 2-S.Thermo-Bifido 1 1 Cap PO SCH (21:00)
[2025-06-12 23:35] VITALS: BP 115/71
[2025-06-13 03:55] VITALS: BP 110/53
[2025-06-13 04:08] LABS: BASOPHILS ABSOLUTE AUTO 0.06 K/mm3 (0.00-0.23); BASOPHILS PERCENT AUTO 1 % (0-2); EOSINOPHILS ABSOLUTE AUTO 0.23 K/mm3 (0.00-0.68); EOSINOPHILS PERCENT AUTO 2 % (0-6); Hematocrit 31.9 % (37.0-53.0); Hemoglobin 9.8 g/dL (13.5-17.5); IMMATURE GRAN ABSOLUTE AUTO 0.17 K/mm3 (0.00-0.10); IMMATURE GRAN PERCENT AUTO 2 % (0-1); LYMPHOCYTES ABSOLUTE AUTO 1.82 K/mm3 (0.84-5.20); LYMPHOCYTES PERCENT AUTO 17 % (21-46); MONOCYTES ABSOLUTE AUTO 1.08 K/mm3 (0.16-1.47); MONOCYTES PERCENT AUTO 10 % (4-13); Mean Corpuscular HGB Conc 30.7 g/dL (31.5-36.5); Mean Corpuscular Volume 88 fL (80-100); NEUTROPHILS ABSOLUTE AUTO 7.63 K/mm3 (1.96-9.15); NEUTROPHILS PERCENT AUTO 70 % (41-73); NRBC ABSOLUTE 0.00 K/mm3 (0.00-0.02); NRBC Auto 0.0 /100 WBC (0.0-0.2); Platelet Count 217 K/mm3 (150-400); RDW Coefficient Variation 17.8 % (11.7-14.2); RDW Standard Deviation 56.7 fL (35.1-46.3)
[2025-06-13 04:34] LABS: Alanine Aminotransfer (ALT/SGP 14.0 U/L (12-78); Albumin, Blood 2.5 g/dL (3.4-5.0); Albumin/Globulin Ratio 0.6 (0.8-1.8); Anion Gap 8.0 mmol/L (3-11); Aspartate Aminotrans (AST/SGOT 12.0 U/L (12-37); Bilirubin, Total 0.5 mg/dL (0.1-1.0); Blood Urea Nitrogen 26.0 mg/dL (8-24); CO2, Blood 29.0 mmol/L (21-32); Calcium, Blood 8.4 mg/dL (8.5-10.1); Chloride, Blood 102.0 mmol/L (98-108); Creatinine, Blood 0.68 mg/dL (0.60-1.20); Globulin, Blood 4.1 g/dL (2.2-4.0); Glucose, Blood 146.0 mg/dL (70-99); Potassium, Blood 4.3 mmol/L (3.5-5.5); Sodium, Blood 135.0 mmol/L (136-145); Total Protein, Blood 6.6 g/dL (6.4-8.2)
--- NOTE | 2025-06-13 06:36 | NUR ---
PT MONITORED DURING THE SHIFT,PT SLEPT MOST OF THE NIGHT.PT USED THE URINAL INDEPENDENTLY AT BEDSIDE.VSS,HR 70'S-80'S.NOTED BLEEDING FROM PT'S MOUTH.PT SAID THAT WHEN HE SNORES,HIS DENTURES VIBRATE AND RUB AGAINST HIS GUMS CAUSING BLEEDING.PT ENCOURAGED TO TAKE THE DENTURES OUT WHEN HE GOES TO BED.PT VERBALIZES UNDERSTANDING.PT'S OXYGEN SATURATION OCCASIONALLY DROPPED DOWN TO THE HIGHER 70'S AND 80'S ON RA.PLACED ON 2L OXYGEN VIA NASAL CANNULA.PT MAINTANED OXYGEN SATURATION >92% ON 2L.PT SLEEPING,EASILY AROUSABLE.PT DENIES PAIN,DENIES NEEDS AT THIS TIME.CALL LIGHT AND PT'S ITEMS WITHIN REACH.MONITORING ONGOING PER CAREPLAN.
[2025-06-13 08:19] VITALS: BP 130/90
[2025-06-13] MEDS ORDERED: Multivitamins 1 Tab PO SCH (09:00)
[2025-06-13] MEDS ORDERED: Potassium Chloride 10 Meq Tablet SA PO SCH (09:00)
[2025-06-13] MEDS ORDERED: Ascorbic Acid 250 MG Chew PO SCH (09:00)
[2025-06-13] MEDS ORDERED: DULoxetine HCL 60 MG Capsule DR PO SCH (09:00)
--- NOTE | 2025-06-13 10:08 | NUR ---
AM NOTE PT RESTING IN BED, APPEARS TO BE SLEEPING AT SHIFT CHANGE. ALERT AND ORIENTED X3; [place], ABLE TO MAKES NEEDS KNOWN. PT HAS RBKA, PROSTHETIC AND WHEELCHAIR IN ROOM. PT DENIES PAIN, CHEST PAIN/PRESSURE, SOB, NAUSEA, DIZZINESS AND NUMB/TINGLING. TELE AFIB, BP STABLE. NO EDEMA NOTED. SPO2 >90% ON RA WHILE AWAKE. ABD MILD DISTENTED, NONTENDER, +BT, NO BM NOTED. OTHER VSS. CALL LIGHT WITHIN REACH.
[2025-06-13 11:29] VITALS: BP 102/54
[2025-06-13 16:34] VITALS: BP 120/53
--- NOTE | 2025-06-13 17:27 | NUR ---
SHIFT SUMMARY NO ACUTE CHANGES DURING SHIFT. CARDIOLOGY CONSULT CALLED IN; DR YO TO BEDSIDE THIS AM AND AFTERNOON. VSS. CALL LIGHT WITHIN REACH.
[2025-06-13 20:26] VITALS: BP 90/59
[2025-06-13 21:29] VITALS: BP 112/51
[2025-06-14] VITALS (7 sets, daily range): BP systolic 100–135; BP diastolic 52–109
--- NOTE | 2025-06-14 04:51 | NUR ---
SHIFT SUMMARY. SHIFT HAS GONE WELL THUS FAR. PT AOX2-3, COOPERATIVE, ABLE TO MAKE NEEDS KNOWN. HAS BEEN ABLE TO REST COMFORTABLY THROUGHOUT SHIFT THUS FAR. SLEEP STUDY RUNNING THROUGHOUT SHIFT. PT HAS DENIED PAIN THROUGHOUT SHIFT. CONTINUES TO RUN AFLUTTER ON SHIFT WITH RATE SETTLING IN THE 50s-80s RANGE OVERNIGHT. INDEPENDENT W/ URINAL, CALLS APPROPRIATELY FOR ASSISTANCE. BED LOCKED IN LOWEST POSITION. CALL LIGHT WITHIN REACH. COTNINUING TO MONITOR.
[2025-06-14 12:54] LABS: PRO B NATRIURETIC PEPTIDE NT 1933 pg/mL (0-449)
[2025-06-14 13:16] LABS: CK TOTAL 17 U/L (39-308)
--- NOTE | 2025-06-14 17:13 | NUR ---
SHIFT SUMMARY: PT A/O X3-4, ABLE TO MAKE NEEDS KNOWN. PT CONTINUES TO RUN A-FLUTTER 60-80s, BP ON SOFTER END >65. CARDIOLOGY SPOKE WITH PT TODAY, PT TO FOLLOW-UP WITH PROVIDER OUTPATIENT FOLLOWING D/C. PT USING URINAL INDEP, CALL APPROPRIATELY FOR ASSISTANCE. PT LYING IN BED, CALL LIGHT WITHIN REACH.
[2025-06-15 03:39] VITALS: BP 106/61
--- NOTE | 2025-06-15 04:27 | NUR ---
SHIFT SUMMARY. SHIFT UNREMARKABLE. PT AOX2-3, PLEASANT, COOPERATIVE, ABLE TO MAKE NEEDS KNOWN. HAS BEEN ABLE TO REST COMFORTABLY THROUGHOUT SHIFT. VITALS HAVE REMAINED STABLE, BP SOMEWHAT SOFT AT TIMES BUT MAP HAS REMAINED >65. CONTINUES TO RUN AFLUTTER ON TELE WITH RATE SETTLING IN THE 60s-80s RANGE OVERNIGHT. HAS DENIED PAIN THROUGHOUT SHIFT. INDEPENDENT WITH URINAL, CALLS APPROPRIATELY FOR ASSISTANCE. BED LOCKED IN LOWEST POSITION. CALL LIGHT LEFT WTIHIN REACH. CONTINUING TO MONITOR.
[2025-06-15 07:37] VITALS: BP 105/77
[2025-06-15 08:20] LABS: Source, Urine Clean Catch
[2025-06-15 08:47] LABS: Bilirubin, Urine Neg (Neg); Color, Urine Yellow (P-Yellow); Glucose Qualitative, Urine 4+ (Neg); Ketones, Urine Neg (Neg); Leukocyte Esterase, Urine 3+ (Neg); Protein, Urine 3+ (Neg); Specific Gravity, Urine 1.015 (1.003-1.022); Urobilinogen, Urine NORM (Normal)
[2025-06-15 08:53] LABS: White Blood Cells, Urine 50-100 /hpf (0-5)
[2025-06-15] MEDS ORDERED: CefTRIAXone Sodium 1,000 MG in NS 100 ML IV ONE (09:50)
[2025-06-15 12:04] VITALS: BP 114/75
[2025-06-15 16:52] VITALS: BP 108/50
--- NOTE | 2025-06-15 18:12 | NUR ---
SHIFT SUMMARY PT A/O X4, ABLE TO MAKE NEEDS KNOWN. PT DENIES SOB, SATS >90 ON RA. PT DENIES CHEST PAIN/PRESSURE. VSS, BP SOFT BUT MAP ABOVE >65. PTS LLE DRESSING CHANGED PER ORDER, LEFT LEG ELEVATED ON PILLOW. PT X1 ASSIST TO BSC, AND INDEP TO URINAL. PTS FAMILY WAS CONTACTED AND UPDATED TODAY. PT LYING IN BED, CALL LIGHT WITHIN REACH.
[2025-06-15 20:07] VITALS: BP 99/64
[2025-06-15 23:28] VITALS: BP 106/58
[2025-06-16 02:58] VITALS: BP 113/64
--- NOTE | 2025-06-16 04:26 | NUR ---
SHIFT SUMMARY. SHIFT HAS BEEN MOSTLY UNREMARKABLE. PT MENTATION HAS FLUCTUATED MORESO THAN PREVIOUS SHIFTS WITH THIS RN. AT SHIFT ONSET, WAS ABLE TO ANSWER ALL ORIENTATION QUESTIONS APPROPRIATELY. SHIFT HAS GONE ON, HAS MADE COMMENTS AT TIMES THAT SUGGEST SOME LEVEL OF CONFUSION. HAS BEEN PLEASANT, COOPERATIVE, REDIRECTABLE THROUGHOUT SHIFT. BED ALARM ACTIVE FOR SAFETY. WAS COMPLAINING OF LLE PAIN AT BEGINNING OF SHIFT BUT REPORTED PAIN WAS RELIEVED W/ MEDICATION PER EMAR. CONTINUES TO RUN AFLUTTER ON TELE. VITALS STABLE, BP SOFT AT TIMES BUT MAP >65. HAS BEEN ON ROOM AIR THROUGHOUT SHIFT. BED LOCKED IN LOWEST POSITION. CALL LIGHT LEFT WITHIN REACH. CONTINUING TO MONITOR.
[2025-06-16 04:34] LABS: Hematocrit 31.9 % (37.0-53.0); Hemoglobin 9.7 g/dL (13.5-17.5); Mean Corpuscular HGB Conc 30.4 g/dL (31.5-36.5); Mean Corpuscular Volume 88 fL (80-100); NRBC ABSOLUTE 0.00 K/mm3 (0.00-0.02); NRBC Auto 0.0 /100 WBC (0.0-0.2); Platelet Count 256 K/mm3 (150-400); RDW Coefficient Variation 17.7 % (11.7-14.2); RDW Standard Deviation 57.2 fL (35.1-46.3)
[2025-06-16 04:55] LABS: Anion Gap 10.0 mmol/L (3-11); Blood Urea Nitrogen 36.0 mg/dL (8-24); CO2, Blood 29.0 mmol/L (21-32); Calcium, Blood 9.1 mg/dL (8.5-10.1); Chloride, Blood 102.0 mmol/L (98-108); Creatinine, Blood 0.93 mg/dL (0.60-1.20); Glucose, Blood 138.0 mg/dL (70-99); Potassium, Blood 4.1 mmol/L (3.5-5.5); Sodium, Blood 137.0 mmol/L (136-145)
[2025-06-16 07:50] VITALS: BP 104/65
--- NOTE | 2025-06-16 08:31 | NUR ---
ASSUMPTION: PATIENT DURING SHIFT CHANGE WAS MILDLY GROGGY IMPROVED ON NEXT ROUNDING IS A/O X 3-4 HE KNEW THE DATE MINUS THE MONTH. DENIES CHEST PAIN PRESSURE OR SOB AT REST. WOULD RECOMMEND PILLS WITH APPLESAUCE DUE TO THE AMOUNT, PATIENT AGREEABLE TO NEXT PILLS WITH APPLESAUCE. ON RA SPO2 >92%. ABLE TO USE THE URINAL 350 OUT. PAIN IS INCREASED THIS AM TREATED PER DEC. BLOOD PRESSURE >100 SYSTOLICALLY. ROCEPHIN INFUSING RFA, BLOOD RETURN NOTED. NO ACUTE CONCERNS FROM THIS RN HR UNDER 90'S AT REST. PLAN OF CARE CONTINUES.
[2025-06-16] MEDS ORDERED: CefTRIAXone Sodium 1,000 MG in NS 100 ML IV SCH (09:00)
[2025-06-16 09:36] LABS: Ferritin, Serum 63.0 ng/mL (26-388); Total Iron Binding Capacity 289.0 ug/dL (250-450)
[2025-06-16 11:01] VITALS: BP 115/51
[2025-06-16 15:27] VITALS: BP 109/58
[2025-06-16] MEDS ORDERED: Iron Dextran 50 MG / ML 2ML Vial IV ONE (15:40)
--- NOTE | 2025-06-16 16:19 | NUR ---
EOS: NO SIGNIFICANT CHAGES FOR THIS RN, HAS BEEN SLEEPING MOST OF THE DAY. WAKES EASILY, DENIES CHEST PAIN PRESSURE, TOLERATED INFED WELL, HANDOFF TO ANDRE. D RN, NO CURRENT COMPLAINTS NOTED, REPOSITIONS PROVIDED Q2 OR MORE FREQUENT WHEN PATIENT ALLOWS.
--- NOTE | 2025-06-16 17:26 | NUR ---
THIS RN ASSUMED CARE OF THE PT AT ABOUT 1630. REPORT FORM ISABELLE RN. DURING BEDSIDE SHIFT REPORT THE PT WAS RESTING COMFORTABLY ON RA W/ SP02 >93%. BREATHING EVEN AND UNLABORED. ON TELE HE IS AFIB 50'S-60'S. BP STABLE. BED IN LOW, BED ALARM INTACT. SEE NOTES IF ANY UPDATES.
[2025-06-16] MEDS ORDERED: Iron Dextran 975 MG in NS 250 ML IV ONE (18:00)
[2025-06-16 19:55] VITALS: BP 103/54
[2025-06-16 23:46] VITALS: BP 103/58
[2025-06-17 04:13] VITALS: BP 1025/53
--- NOTE | 2025-06-17 06:09 | NUR ---
NO ACUTE EVENTS OVERNIGHT. VSS. PT USED URINAL APPROPRIATELY. PT COMPLAINED OF LEFT LEG PAIN EARLY IN THE SHIFT. PT MEDICATED WITH PRN PAIN MEDICATION ORDERED. PAIN SUBSIDED. PT SLEPT MOST OF THE NIGHT. BED LOCKED IN LOWEST POSITION. BED ALARM ON. CALL LIGHT WITHIN REACH.
[2025-06-17 08:00] VITALS: BP 118/55
[2025-06-17] MEDS ORDERED: NITR100CA PO (10:51)
[2025-06-17] MEDS ORDERED: METF500 PO (11:08)
[2025-06-17] MEDS ORDERED: DIGOX125 MC1 PO (11:21)
[2025-06-17] MEDS ORDERED: JARDIANCE10 MG PO (11:25)
[2025-06-17 13:20] VITALS: BP 126/62
--- NOTE | 2025-06-17 13:57 | NUR ---
DISCHARGE NOTE REPORT GIVEN TO NURSE MASSEY AT [facility]. TRANSPORT SCHEDULED FOR 1400. PATIENT WILL DISCHARGE WITH OWN WHEELCHAIR. PATIENT WAS A/OX4 ALL SHIFT, LS CTA DIM BASES, NO CP SOB OR NAUSEA. TOOK ALL MEDICATIONS WELL WITH APPLEASAUCE. PATIENT WAS AFIB ON MONITOR 50-80'S. VICTORINA DIET WELL. PATIENT'S L FOOT DRESSED WITH PADDED NON-STICK FOAM DRESSING, CURLEX, AND LIGHTLY WRAPPED WITH TRINH WRAP. STUMP SOCK AND PROSTHESIS PLACED ON R LEG. PATIENT ABLE TO STAND AND TRANSFER FROM BED TO OWN W/C WITH 2 PERSON ASSIST. VERBALIZED UNDERSTANDING OF D/C INSTRUCTIONS.
== END 2025-06-17 14:19 | disposition home or self-care (01) | DRG 308 ==
LOC: PCU 12:14
PROVIDERS: Internal Medicine; ADMIT Family Medicine
DX: I48.21 Permanent atrial fibrillation (principal); L89.623 Pressure ulcer of left heel, stage 3; L89.893 Pressure ulcer of other site, stage 3; N39.0 Urinary tract infection, site not specified; I50.42 Chronic combined systolic (congestive) and diastolic (congestive) heart failure; E11.51 Type 2 diabetes mellitus with diabetic peripheral angiopathy without gangrene; M35.3 Polymyalgia rheumatica; I48.92 Unspecified atrial flutter; I35.0 Nonrheumatic aortic (valve) stenosis; D50.9 Iron deficiency anemia, unspecified; J44.9 Chronic obstructive pulmonary disease, unspecified; G89.29 Other chronic pain; K21.9 Gastro-esophageal reflux disease without esophagitis; I11.0 Hypertensive heart disease with heart failure; I45.10 Unspecified right bundle-branch block; E78.00 Pure hypercholesterolemia, unspecified; N40.0 Benign prostatic hyperplasia without lower urinary tract symptoms; R54 Age-related physical debility; Z79.52 Long term (current) use of systemic steroids; Z87.891 Personal history of nicotine dependence; Z88.5 Allergy status to narcotic agent; Z88.8 Allergy status to other drugs, medicaments and biological substances; Z79.01 Long term (current) use of anticoagulants; Z79.82 Long term (current) use of aspirin; Z79.84 Long term (current) use of oral hypoglycemic drugs; Z89.511 Acquired absence of right leg below knee; Z95.820 Peripheral vascular angioplasty status with implants and grafts
CPT/HCPCS: 36415; 71045; 80048; 80053; 80162; 81001; 82550; 82552; 82728; 82947; 83540; 83550; 83735; 83880; 84439; 84443; 84481; 84484; 85025; 85027; 87086; 94640; 94664; 94760; 94762; A9270; C8929; J0696; J1160; J1750; J7050; J7512; Q9957

== ENCOUNTER 2025-09-27 09:30 | Day surgery (SDC) | payer OTHER ==
[~2025-09-27] VITALS: Ht 180.3 cm; Wt 77.3 kg
[~2025-09-27 09:30] MED LIST changes: +FentaNYL Citrate 50 MCG/ML 2 ML Injection ONE; +Midazolam HCl 1MG / ML 2ML Vial ONE; +NITR100CA PO
[2025-09-27] MEDS ORDERED: CeFAZolin Sodium 2,000 MG VIAL ONE (09:46)
[2025-09-27] MEDS ORDERED: PREDNISOLO15 MG/5 ML PO (10:13)
[2025-09-27] MEDS ORDERED: OCUFLOX511 BOTHEARS (10:13)
[2025-09-27] MEDS ORDERED: AMOX500 PO (10:14)
[2025-09-27] MEDS ORDERED: METO10 PO (10:16)
[2025-09-27] MEDS ORDERED: FINA5 PO (10:21)
[2025-09-27] MEDS ORDERED: Lidocaine HCl 2% 10 ML SDA ONE (10:27)
--- NOTE | 2025-09-27 10:43 | NUR ---
09/27/25 Alicja3 GOKUL SMITH CNA AT BEDSIDE. [facility] RN CALLED AT 1015 TO CONFIRM ABO REASON (UTI), BLOOD THINNERS T-3 @ [id number]
[2025-09-27] MEDS ORDERED: Bupivacaine 0.5% HCl 5 MG/ML 30MLVIAL INJ ONE (11:11)
[2025-09-27 13:11] VITALS: BP 103/81
== END 2025-09-27 12:23 | disposition home or self-care (01) ==
LOC: ORSCSDS 09:30
PROVIDERS: Podiatrist Foot & Ankle Surgery
PROC: 0Y6W0Z0 Detachment at Left 4th Toe, Complete, Open Approach (ICD-10-PCS; principal; 2025-09-27 11:00)
DX: M86.172 Other acute osteomyelitis, left ankle and foot (principal); E11.621 Type 2 diabetes mellitus with foot ulcer; L97.526 Non-pressure chronic ulcer of other part of left foot with bone involvement without evidence of necrosis; I10 Essential (primary) hypertension; I48.91 Unspecified atrial fibrillation; Z79.01 Long term (current) use of anticoagulants; Z79.82 Long term (current) use of aspirin; I50.9 Heart failure, unspecified; Z79.899 Other long term (current) drug therapy; M35.3 Polymyalgia rheumatica; J44.9 Chronic obstructive pulmonary disease, unspecified
CPT/HCPCS: 82947; 88305; 88311; J0690; J2003; J2250; J2704; J3010